=== PATIENT | female | born 1965 | race Caucasian/White ===

== ENCOUNTER 2020-06-13 14:16 | Emergency (ER) | payer OTHER, SELFPAY ==
[2020-06-13 14:31] VITALS: BP 104/47; PULSE 93; RESP 20; TEMP 36.6; O2SAT 99
--- NOTE | 2020-06-13 14:32 | ED.URI ---
HPI - URI/Sore Throat General Chief Complaint: Upper Respiratory Infection Stated Complaint: Possible sinus infection Time Seen by Provider: 06/13/20 14:32 Source: patient and RN notes reviewed Mode of arrival: ambulatory Limitations: no limitations History of Present Illness HPI Narrative: 55-year-old female presents with concern for sinus congestion, sinus pain and pressure. Reports 2-day history of symptoms. Denies taking any dsal-lje-zidtkhf medications for her symptoms. She denies fever, malaise, body aches, chills, sweats. Reports cough, denies shortness of breath. Reports she recently stayed in the hospital as a guest with her son for 2 nights. MD elicited complaint: nasal congestion Related Data Allergies Allergy/AdvReac Type Severity Reaction Status Date / Time levofloxacin [From Levaquin] Allergy Unknown Verified 06/13/20 14:33 nitrofurantoin Allergy Unknown Verified 06/13/20 14:33 [From Macrobid] Sulfa (Sulfonamide Allergy Rash Verified 06/13/20 14:33 Antibiotics) trimethoprim Allergy Unknown Verified 06/13/20 14:33 Review of Systems Review of Systems: Narrative: CONSTITUTIONAL: Denies malaise, chills, sweats, or fever. EYES: Denies visual changes, redness, or discharge. ENT: Reports rhinorrhea, congestion, sinus pain. Denies otalgia and sore throat. CARDIOVASCULAR: Denies chest pain, palpitations, or edema. RESPIRATORY: Reports cough. Denies dyspnea. GASTROINTESTINAL: Denies abdominal pain, nausea, vomiting, diarrhea SKIN: Denies rash or itching. MUSCULOSKELETAL: Denies myalgia. NEUROLOGIC: Denies headache. All systems reviewed & are unremarkable except as noted in HPI and below PMFSH Comments At time of signature, agree with nursing past medical, surgical, social and family history. There is no relevant family history pertinent to the presenting complaint Exam Narrative: Exam Narrative: GENERAL: Well-appearing, well-nourished, and in no acute distress. HEAD: Normocephalic EYES: PERRLA, conjunctivae clear ENT: Nares clear, turbinates edematous and erythematous, clear discharge. Mucous membranes moist. TM pearly rivero with dull light reflex bilaterally; no tragal tenderness. Oropharynx mildly erythematous without lesions. Tonsils not enlarged and without exudate, no drooling, no hoarseness, no trismus, uvula midline. NECK: Supple. No lymphadenopathy CHEST: Clear to auscultation, breath sounds equal. No wheezing, rhonchi, rales, or stridor. No respiratory distress, speaks in full sentences. HEART: Regular rate and rhythm. No murmur heard. SKIN: Warm, dry, no rash. NEURO: Alert and oriented x3. PSYCH: Normal mood and affect Course Course Emergency Course: Patient is aware of diagnosis, understands and agrees to treatment plan. Anticipatory guidance given. Patient agrees to follow-up as directed and is aware of reasons to seek care at the emergency department. Portions of this record may have been created with voice recognition software Vital Signs Vital signs: Vital Signs Temperature 98 F 06/13/20 14:31 Pulse Rate 93 06/13/20 14:31 Respiratory Rate 20 06/13/20 14:31 Blood Pressure 104/47 L 06/13/20 14:31 Pulse Oximetry 99 06/13/20 14:31 Temperature 98 F 06/13/20 14:31 Pulse Rate 93 06/13/20 14:31 Respiratory Rate 20 06/13/20 14:31 Blood Pressure 104/47 L 06/13/20 14:31 Pulse Oximetry 99 06/13/20 14:31 Reviewed. MDM - URI/Sore Throat MDM Narrative Medical decision making narrative: Differential diagnosis considered: Calero virus, strep pharyngitis, allergic rhinitis, upper respiratory tract infection, sinusitis, rhinosinusitis, nasopharyngitis. viral pharyngitis, otitis media, otitis externa, pneumonia, bronchitis, viral cough syndrome, viral syndrome, and influenza. Exam findings show no acute concerns or changes; patient is non-toxic appearing and is in no distress. Patient is appropriate for outpatient treatment and follow-up. Critical Care Time Critical
== END 2020-06-13 14:50 | disposition home or self-care (01) ==
PROVIDERS: Emergency Provider Nurse Practitioner
DX: J06.9 Acute upper respiratory infection, unspecified (principal); Z20.828 Contact with and (suspected) exposure to other viral communicable diseases
CPT/HCPCS: 99213; G0463

== ENCOUNTER 2020-06-14 10:20 | Outpatient (NON) | payer OTHER, SELFPAY ==
[2020-06-14 22:56] LABS: SARS-CoV-2 RNA PCR Negative
== END 2020-06-14 10:21 ==
PROVIDERS: Visit Provider Nurse Practitioner
DX: Z20.828 Contact with and (suspected) exposure to other viral communicable diseases (principal); J06.9 Acute upper respiratory infection, unspecified
CPT/HCPCS: 87635; C9803; U0003

== ENCOUNTER 2022-07-10 10:22 | Observation (INO) | payer OTHER, SELFPAY ==
[2022-07-10] VITALS (11 sets, daily range): BP systolic 95–116; BP diastolic 52–69; PULSE 54–80; RESP 16–18; TEMP 36.2–36.8; O2SAT 98–100; BMI 25.8
--- NOTE | ~2022-07-10 | CT_ITS ---
EXAMINATION: CT abdomen pelvis w con DATE: 07/10/2022 12:17 INDICATION: Left lower quadrant abdominal pain TECHNIQUE: Computed tomography (CT) of the abdomen and pelvis was performed with 100 mL Omnipaque-350 intravenous contrast. Automated exposure control and iterative reconstruction technique were employe d. The dose-length product was 444.02 mGy-cm. COMPARISON: None FINDINGS: Linear discoid atelectasis/scarring at the medial aspect of the right lower lobe. Heart size is radha l. No pericardial or pleural effusion. Focal hepatic steatosis along the ligamentum teres. Gallbladde r is decompressed. Spleen, pancreas, bilateral adrenal glands and kidneys are normal. There is diffus e edematous-appearing wall thickening of the colon with minimal pericolonic stranding consistent with diffuse pancolitis. Small bowel is normal. No pneumatosis, portal venous gas, abscess or free intrap eritoneal gas or fluid. The appendix is not visualized. No pericecal inflammatory change to suggest a cute appendicitis. Bladder and anteverted uterus are normal. Dilated parametrial and left gonadal vei ns which can be seen with pelvic vascular congestion syndrome. No pathologically enlarged abdominal o r pelvic lymphadenopathy. Very small fat-containing umbilical hernia. 22 degrees thoracolumbar dextro scoliosis. Moderate lumbar and lower thoracic spondylosis. IMPRESSION: 1. Diffuse edematous wall thickening of the colon with mild pericolonic stranding consistent with a d iffuse pancolitis which could be infectious, inflammatory or ischemic in etiology. Reviewed, dictated and finalized at location B. [employer] 2ND SHIFT IMPRESSION: 1. Diffuse edematous wall thickening of the colon with mild pericolonic strandi ng consistent with a diffuse pancolitis which could be infectious, inflammatory or ischemic in etiology.
[2022-07-10 10:48] LABS: Basophils Percent Auto 0.3 % (0.2-1.2); Eosinophils Percent Auto 0.3 % (0-4.4); Hematocrit 41.4 % (37.0-47.0); Hemoglobin 14.2 g/dL (12.0-15.0); Immature Granulocyte Absolute 0.01 K/mm3 (0.00-0.031); Immature Granulocyte Percent A 0.1 % (0-0.5); Lymphocytes Absolute Auto 1.24 K/mm3 (0.9-3.2); Lymphocytes Percent Auto 17.2 % (18.3-44.2); Mean Corpuscular HGB Conc 34.3 g/dl (32-36); Mean Corpuscular Hemoglobin 29.5 pg (26-34); Mean Corpuscular Volume 85.9 fl (80-100); Mean Platelet Volume 8.6 fl (7.4-10.4); Monocytes Absolute Auto 0.7 K/mm3 (0.1-0.6); Monocytes Percent Auto 9.4 % (2.6-8.5); Neutrophils Absolute Auto 5.2 K/mm3 (1.3-6.7); Neutrophils Percent Auto 72.7 % (45.5-73.1); Platelet Count Result 276 k/mm3 (150-375); Red Blood Count 4.82 M/mm3 (4.2-5.4); Red Cell Distribution Width 13.5 % (11.5-14.5); White Blood Count 7.2 K/mm3 (4.5-10.0)
[2022-07-10 10:55] LABS: Appearance Urine Slightly Cloudy (Clear); Bilirubin Urine 1+ (Negative); Blood Urine 2+ (Negative); Color Urine Yellow (Yellow); Glucose Urine UA Negative (Negative); Ketones Urine 1+ mg/dL (Negative); Leukocyte Esterase Ur Negative LEU/UL (Negative); Nitrate Urine Negative (Negative); Protein Urine 1+ mg/dL (Negative); Specific Grav Ur >= 1.030 (1.001-1.035); Urobilinogen Urine 0.2 mg/dL (<2.0); pH Urine 5.5 (5.0-9.0)
[2022-07-10 10:57] LABS: Alanine Aminotransferase 32 U/L (6-35); Albumin Level 4.3 g/dL (3.5-5.1); Alkaline Phosphatase 78 U/L (38-126); Anion Gap 12 mmol/L (8-16); Aspartate Amino Transferase 29 U/L (14-36); Bilirubin,Total 0.8 mg/dL (0.2-1.3); Blood Urea Nitrogen 16 mg/dL (7-17); Carbon Dioxide 24 mmol/L (22-30); Chloride 103 mmol/L (98-107); Estimated CRCL calculation 73 ml/min; Estimated Glomerular Filt Rate > 60; Glucose 101 mg/dL (65-110); Lipase 93 U/L (23-300); Potassium 3.4 mmol/L (3.4-5.0); Sodium 139 mmol/L (137-145)
[2022-07-10 11:09] LABS: Mucus Urine Few /lpf; Squamous Epithelial Cell Urine Many /hpf (Few); WBC Urine 0-3 /hpf
[2022-07-10 11:22] LABS: Add Urine Microscopic? YES
--- NOTE | 2022-07-10 11:40 | ED.GENADULT ---
HPI - General Adult General Chief complaint: Nausea/Vomiting/Diarrhea Stated complaint: N/V, i feel like i am dehydrating Time Seen by Provider: 07/10/22 11:34 Source: RN notes reviewed History of Present Illness HPI narrative: Patient presents emergency department from home for abdominal pain. Patient states symptoms began 2 days ago. States that she developed nausea vomiting and diarrhea 2 days ago she states that the vomiting resolved yesterday but continues to have nausea as well as diarrhea states that is associated with pain in the left lower abdomen is described as cramping in nature. States she did feel like she was running low-grade fevers but did not have a measured fever. States she last took Tylenol for the symptoms last night. She states that both her and her were ill with GI symptoms after eating out on Sunday night her is improved she denies any chest pain or shortness of breath Related Data Allergies Allergy/AdvReac Type Severity Reaction Status Date / Time levofloxacin [From Levaquin] Allergy Unknown Verified 07/10/22 13:25 nitrofurantoin Allergy Unknown Verified 07/10/22 13:25 [From Macrobid] Sulfa (Sulfonamide Allergy Rash Verified 07/10/22 13:25 Antibiotics) trimethoprim Allergy Unknown Verified 07/10/22 13:25 Review of Systems Review of Systems: Gen.: Subjective fevers ENT: Denies congestion Respiratory: Denies shortness of breath or cough CV: Denies chest pain or palpitations GI: See HPI Musculoskeletal: Denies back pain or muscle pain Neuro: Denies numbness, tingling, weakness or focal weakness Skin: Denies rash Except as documented, all other systems reviewed and negative FOR[facility] Past Medical History Medical History (Updated 07/10/22 @ 13:44 by Moises Kendrick DO) Patient denies significant medical history Social History Social History (Updated 07/10/22 @ 11:41 by Moises Kendrick DO) Smoking status: Never smoker Exam Narrative: APPEARANCE: No acute distress, nontoxic, resting in bed HEENT: Normocephalic, atraumatic, OMM RESPIRATORY: No respiratory distress, clear to auscultation bilaterally with no rhonchi wheezing or rales CARDIOVASCULAR: RRR s murmur ABDOMINAL: Soft nondistended tender palpation left lower quadrant no tenderness left upper quadrant, right upper quadrant and right lower quadrant no rebound or guarding MUSCULOSKELETAl: Moves all extremities. No clubbing, cyanosis or edema. NEURO: Awake and alert. Following commands, speech normal, no focal deficits SKIN:: Warm, dry. Normal Color PSYCHIATRIC: Normal affect/mood Course Course Emergency Course: Discussed Dr Reynoso presentation work-up agrees with plan for consult agrees with plan for Zosyn discussed with ALYCE Ludwig for Dr. Martinez agrees with admission Discussed with patient and family results of workup and diagnosis. Discussed need for admission. Patient and family understand and agree to current treatment plan Vital Signs Vital signs: Vital Signs Temperature 98.2 F 07/10/22 10:25 Pulse Rate 75 07/10/22 10:25 Respiratory Rate 18 07/10/22 10:25 Blood Pressure 116/60 07/10/22 10:25 Pulse Oximetry 99 07/10/22 10:25 Oxygen Delivery Room Air 07/10/22 10:25 Temperature 98.2 F 07/10/22 10:25 Pulse Rate 80 07/10/22 13:29 Respiratory Rate 16 07/10/22 13:19 Blood Pressure 103/63 07/10/22 13:29 Pulse Oximetry 100 07/10/22 13:19 Oxygen Delivery Room Air 07/10/22 11:58 Medical Decision Making Vital Signs Vital Signs: Vital Signs Temperature 98.2 F 07/10/22 10:25 Pulse Rate 75 07/10/22 10:25 Respiratory Rate 18 07/10/22 10:25 Blood Pressure 116/60 07/10/22 10:25 Pulse Oximetry 99 07/10/22 10:25 Oxygen Delivery Room Air 07/10/22 10:25 Temperature 98.2 F 07/10/22 10:25 Pulse Rate 80 07/10/22 13:29 Respiratory Rate 16 07/10/22 13:19 Blood Pressure 103/63 07/10/22 13:29 Pulse Oximetry 100 07/10/22
[2022-07-10] MEDS: SODIUM CHLORIDE 0.9% IV 1,000 ML 999 ML IV CONT (12:00)
[2022-07-10] MEDS: ONDANSETRON INJ 4 MG/2 ML VIAL IV PUSH (12:01)
[2022-07-10 13:40] LABS: Lactic Acid Reflex 0.6 mmol/L (0.7-2.0)
--- NOTE | 2022-07-10 13:45 | PM.IMHP ---
H&P: HPI History of Present Illness Date/Time: 07/10/22 13:45 Chief Complaint: Diarrhea. Narrative: This is a very pleasant 57-year-old female with GERD and history of Helicobacter pylori infection who presented to the emergency department from home for evaluation of diarrhea. She and her ate at a local seafood restaurant on Sunday and the following day she started to feel unwell with subjective fever, chills, diffuse abdominal cramping, nausea, vomiting, and diarrhea. She continues to have 5 watery, green stools a day and nausea but the vomiting has ceased. She denies hematemesis, melena, hematochezia, and documented fever. No recent antibiotic use (she does have a prescription for cefdinir due to frequent urinary tract infections that she will take as needed) or travel. No history of inflammatory bowel disease. Her had similar symptoms but to a much lesser extent. Vital signs were stable on arrival though blood pressures have been at the low end of normal. Labs were pretty unremarkable however her urine was concentrated and she certainly looks dehydrated. CT of the abdomen and pelvis done on arrival to the emergency department showed diffuse nino colitis and she is being admitted in this setting for IV fluid rehydration and IV antibiotics. Review of Systems Review of Systems: Twelve systems were reviewed and are negative except for as per HPI. [facility] Past Medical History Medical History (Updated 07/10/22 @ 19:56 by Vani Trotter PA-C) Chronic urinary tract infection COVID-19 (03/2022) Gastroesophageal reflux disease History of Helicobacter pylori infection Surgical History Surgical History (Updated 07/10/22 @ 19:53 by Vani Trotter PA-C) History of 3 sections History of appendectomy History of foot surgery Family History Family History (Updated 07/10/22 @ 19:54 by Vani Trotter PA-C) Other Family history non-contributory Social History Social History (Updated 07/10/22 @ 19:54 by Vani Trotter PA-C) Social History: Code status: Full code. Smoking status: Never smoker Alcohol intake: current Alcohol use details: Social alcohol use in moderation. Substance use: never Lack of Transportation: No Lack of Food: Never True Current Housing: I Have Housing Concerned About Future Housing: No Difficulty Paying Gas/Electric Bills: No Difficulty Paying for Meds: No Currently Unemployed: No Education: Don't Know Difficulty w/ Childcare or Family Care: Decline to Answer Additional living arrangements comments: The patient lives with her and children in [place]. Spiritual care concerns: No Meds Home Medications and Allergies Home Medications Medication Instructions Recorded Confirmed Type alendronate 70 mg tablet 70 mg PO WEEKLY 07/10/22 07/10/22 History cephalexin 500 mg capsule 500 mg PO DAILY 07/10/22 07/10/22 History estradiol 10 mcg vaginal tablet 10 mcg vaginal DAILY 07/10/22 07/10/22 History pantoprazole 40 mg tablet,delayed 40 mg PO DAILY 07/10/22 07/10/22 History release Allergies Allergy/AdvReac Type Severity Reaction Status Date / Time levofloxacin [From Levaquin] Allergy Unknown Verified 07/10/22 13:25 nitrofurantoin Allergy Unknown Verified 07/10/22 13:25 [From Macrobid] Sulfa (Sulfonamide Allergy Rash Verified 07/10/22 13:25 Antibiotics) trimethoprim Allergy Unknown Verified 07/10/22 13:25 Vital Signs Vital Signs - 24 hr 07/10/22 10:25 07/10/22 11:58 07/10/22 13:19 Temperature 98.2 F Pulse Rate 75 70 64 Respiratory Rate 18 16 16 Blood Pressure 116/60 108/63 Pulse Oximetry 99 98 100 Oxygen Delivery Room Air Room Air 07/10/22 13:26 07/10/22 13:27 07/10/22 13:29 Temperature Pulse Rate 65 74 80 Respiratory Rate Blood Pressure 101/57 L 102/69 103/63 Pulse Oximetry Oxygen Delivery 07/10/22 14:00 Temperature Pulse Rate 60 Respiratory Rate 18 Blood P
[2022-07-10] MEDS: SODIUM CHLORIDE 0.9% IV 1,000 ML 125 ML IV CONT ×2 (14:01→21:21)
[2022-07-10 14:48] LABS: Influenza A QL RT-PCR Negative (Negative); Influenza B QL RT-PCR Negative (Negative); RSV RNA, RT-PCR Negative (Negative); SARS-CoV-2 RNA PCR Negative
--- NOTE | 2022-07-10 15:23 | WPDGICN ---
Assessment and Plan Assessment and plan (1) Infectious colitis: Code(s): A09 - Infectious gastroenteritis and colitis, unspecified Status: Acute Assessment and Plan: patient appears to have infectious colitis given the history of nausea vomiting diarrhea that began after eating foods along with the similar illness of her . Etiology of the bacterial agent uncertain. Stool cultures will be obtained. Broad-spectrum antibiotics have already been started in the emergency room. IV rehydration will be helpful. Hopefully this is self-limited. (2) GERD (gastroesophageal reflux disease): Code(s): K21.9 - Gastro-esophageal reflux disease without esophagitis Status: Acute Assessment and Plan: Patient gives a longstanding history of GE reflux disease. Patient followed by gut dropper at [facility]. Will maintain patient on pantoprazole well ill. Anticipate long-term follow-up with her established gut dropper in [place]. GI Consult Note Consult date/time: 07/10/22 15:23 Reason for consult: Pancolitis by CT scan. HPI: Suyapa Macias is a 57 year old female I am asked to see at the request of the emergency room. Patient reports that she was in usual state of health. On Sunday 3 days prior to this she when out to eat. She had raw oysters and some specialty foods. On Sunday both she and her became sick with nausea vomiting and diarrhea. Her has improved. Patient reports that she is unable to keep food down and continues to have diarrhea. Patient presented to the emergency room today was found to have a normal CBC. CT scan was performed and found to have pancolitis. Patient has empirically been started on Zosyn. She reports an allergy to the Levaquin. Family history is noncontributory. Patient's past medical history is significant for GE reflux disease. Patient reports that she has maintained chronically on pantoprazole. Patient reports many years ago as a teenager she was treated for shigella.Patient is to be admitted for IV rehydration and antibiotic therapy per the emergency room. Review of Systems Review of Systems: Review of systems noncontributory. [facility] Past Medical History Medical History (Updated 07/10/22 @ 15:27 by Alfonso Reynoso MD) Patient denies significant medical history Social History Social History (Updated 07/10/22 @ 11:41 by Moises Kendrick DO) Smoking status: Never smoker Meds Home Medications and Allergies Home Medications Medication Instructions Recorded Confirmed Type cetirizine 5 mg-pseudoephedrine ER 1 tablet PO Q12H PRN nasal 06/13/20 Rx 120 mg tablet,extended congestion #12 tabs release,12hr (Zyrtec-D) fluticasone propionate 50 2 spray intranasal DAILY 14 days 06/13/20 Rx mcg/actuation nasal #15.8 mL spray,suspension (Flonase Allergy Relief) Allergies Allergy/AdvReac Type Severity Reaction Status Date / Time levofloxacin [From Levaquin] Allergy Unknown Verified 07/10/22 13:25 nitrofurantoin Allergy Unknown Verified 07/10/22 13:25 [From Macrobid] Sulfa (Sulfonamide Allergy Rash Verified 07/10/22 13:25 Antibiotics) trimethoprim Allergy Unknown Verified 07/10/22 13:25 Vital Signs Vital Signs - 24 hr 07/10/22 10:25 07/10/22 11:58 07/10/22 13:19 Temperature 98.2 F Pulse Rate 75 70 64 Respiratory Rate 18 16 16 Blood Pressure 116/60 108/63 Pulse Oximetry 99 98 100 Oxygen Delivery Room Air Room Air 07/10/22 13:26 07/10/22 13:27 07/10/22 13:29 Temperature Pulse Rate 65 74 80 Respiratory Rate Blood Pressure 101/57 L 102/69 103/63 Pulse Oximetry Oxygen Delivery 07/10/22 14:00 Temperature Pulse Rate 60 Respiratory Rate 18 Blood Pressure 103/63 Pulse Oximetry 98 Oxygen Delivery Exam Narrative: Physical exam reveals patient to be alert. Vital signs stable. HEENT exam is unremarkable. Patient is an
--- NOTE | 2022-07-10 17:25 | ADMGEN ---
This patient, Suyapa Macias, was admitted to Medical Room 342-01. Patient/family oriented to hospital policies and general routines including ID bracelet, bed and alarms, visiting hours, pain management, procedures, bathroom and other care routines, personal items, smoking policy, room service/diet, and visiting hours. Information on how to activate the Rapid Response Team has been discussed. Patient/Family are encouraged to report perceived risks to care and to ask questions if they do not understand what they are told or what they should do.
[2022-07-10] MEDS: ACETAMINOPHEN 325 MG TABLET 650 MG PO (18:36)
[2022-07-10 19:56] LABS: Toxigenic C. Diff NEGATIVE (NEGATIVE)
[2022-07-10 20:17] LABS: IFOB Positive Control Positive; Immunochemical Fecal Occult Bl Negative (N)
[2022-07-11] MEDS: ACETAMINOPHEN 325 MG TABLET 650 MG PO ×2 (01:51→09:05)
[2022-07-11 02:39] LABS: Glucose Point of Care 84 mg/dl (65-105)
[2022-07-11 05:57] LABS: Alanine Aminotransferase 29 U/L (6-35); Albumin Level 3.7 g/dL (3.5-5.1); Alkaline Phosphatase 59 U/L (38-126); Anion Gap 9 mmol/L (8-16); Aspartate Amino Transferase 28 U/L (14-36); Bilirubin,Total 0.9 mg/dL (0.2-1.3); Blood Urea Nitrogen 10 mg/dL (7-17); Calcium 7.9 mg/dL (8.4-10.2); Carbon Dioxide 24 mmol/L (22-30); Chloride 109 mmol/L (98-107); Estimated CRCL calculation 84 ml/min; Estimated Glomerular Filt Rate > 60; Glucose 83 mg/dL (65-110); Magnesium 2.2 mg/dL (1.6-2.3); Potassium 3.5 mmol/L (3.4-5.0); Sodium 142 mmol/L (137-145)
[2022-07-11 06:00] VITALS: BP 102/50; PULSE 72; RESP 16; TEMP 37; O2SAT 97
[2022-07-11 06:24] LABS: Basophils Percent Auto 0.7 % (0.2-1.2); Eosinophils Absolute Auto 0.1 K/mm3 (0-0.3); Eosinophils Percent Auto 1.4 % (0-4.4); Hematocrit 38.7 % (37.0-47.0); Hemoglobin 12.5 g/dL (12.0-15.0); Immature Granulocyte Absolute 0.01 K/mm3 (0.00-0.031); Immature Granulocyte Percent A 0.2 % (0-0.5); Lymphocytes Absolute Auto 1.43 K/mm3 (0.9-3.2); Lymphocytes Percent Auto 33.7 % (18.3-44.2); Mean Corpuscular HGB Conc 32.3 g/dl (32-36); Mean Corpuscular Hemoglobin 28.9 pg (26-34); Mean Corpuscular Volume 89.6 fl (80-100); Mean Platelet Volume 9.1 fl (7.4-10.4); Monocytes Absolute Auto 0.4 K/mm3 (0.1-0.6); Monocytes Percent Auto 9.9 % (2.6-8.5); Neutrophils Absolute Auto 2.3 K/mm3 (1.3-6.7); Neutrophils Percent Auto 54.1 % (45.5-73.1); Platelet Count Result 240 k/mm3 (150-375); Red Blood Count 4.32 M/mm3 (4.2-5.4); Red Cell Distribution Width 13.9 % (11.5-14.5); White Blood Count 4.2 K/mm3 (4.5-10.0)
[2022-07-11 08:00] VITALS: BP 99/55
[2022-07-11] MEDS: SODIUM CHLORIDE 0.9% IV 1,000 ML 125 ML IV CONT (08:52)
[2022-07-11] MEDS: PANTOPRAZOLE SODIUM IV 40 MG VIAL IV PUSH (08:55)
[2022-07-11] MEDS: CEPHALEXIN 500 MG CAPSULE PO (08:55)
--- NOTE | 2022-07-11 10:53 | WPDGIPROGNO ---
Progress Note: A&P Assessment and Plan (1) Infectious colitis: Code(s): A09 - Infectious gastroenteritis and colitis, unspecified Status: Acute Assessment and Plan: Patient with apparent infectious colitis after eating out dinner Sunday. Her was also will but not ill enough to be admitted. Patient appeared to the ER dehydrated yesterday. CT scan appeared to confirmed colitis. Stool cultures currently pending. Now on intravenous broad-spectrum antibiotics. Would recommend advancing diet. Change to oral antibiotics and discharge if diarrhea tolerable and diet tolerated. Empiric antibiotics for 7-10 days encouraged. (2) Dehydration: Code(s): E86.0 - Dehydration Status: Acute Assessment and Plan: Patient dehydrated on presentation. Appears much improved after rehydration today. Suggest advancing to oral diet as tolerated. Discharge if diet tolerated diarrhea has lessened. Subjective Date/time seen: 07/11/22 10:53 Patient alert this morning. She reports minimal stooling throughout the night. No longer vomiting. Tolerated liquid diet without difficulty. Review of Systems Review of Systems: Review of systems noncontributory. Exam Narrative: Physical exam reveals patient be alert. Afebrile. Vital signs stable. She is anicteric. Lungs are clear. Heart without murmur. A abdomen bowel sounds present soft no localized tenderness. Objective Data Vital Signs Vital Signs: Vital Signs - 24 hr 07/10/22 11:58 07/10/22 13:19 07/10/22 13:26 Temperature Pulse Rate 70 64 65 Respiratory Rate 16 16 Blood Pressure 108/63 101/57 L Pulse Oximetry 98 100 Oxygen Delivery Room Air 07/10/22 13:27 07/10/22 13:29 07/10/22 14:00 Temperature Pulse Rate 74 80 60 Respiratory Rate 18 Blood Pressure 102/69 103/63 103/63 Pulse Oximetry 98 Oxygen Delivery 07/10/22 16:44 07/10/22 18:34 07/10/22 20:00 Temperature 97.2 F L Pulse Rate 57 L 54 L Respiratory Rate 16 18 Blood Pressure 100/60 95/52 L 100/60 Pulse Oximetry 98 100 Oxygen Delivery 07/10/22 21:54 07/11/22 06:00 Temperature 97.9 F 98.6 F Pulse Rate 59 L 72 Respiratory Rate 16 16 Blood Pressure 100/60 102/50 L Pulse Oximetry 100 97 Oxygen Delivery Intake/Output Intake/Output: Intake & Output 07/08/22 07/09/22 07/10/22 07/11/22 23:59 23:59 23:59 23:59 Intake Total 2200 1050 Output Total 500 Balance 2200 550 Meds/Results Medications: Active Medications Generic Name Dose Route Start Last Admin Trade Name Freq PRN Reason Stop Dose Admin Acetaminophen 650 mg 07/10/22 18:06 07/11/22 09:05 Acetaminophen 325 Mg Tablet PO 650 mg Q6H PRN Administration Mild Pain (1-3) or Fever Cephalexin HCl 500 mg 07/11/22 09:00 07/11/22 08:55 Cephalexin 500 Mg Capsule PO 500 mg DAILY KINJAL Administration Piperacillin/Tazobactam/Dextrose 3.375 gm in 50 mls @ 100 mls/hr 07/10/22 20:00 07/11/22 08:53 Zosyn 3.375 Gm/D5w 50ml Pm IVPB 100 mls/hr Q6H KINJAL Administration Sodium Chloride 1,000 mls @ 100 mls/hr 07/10/22 13:40 07/11/22 08:52 Normal Saline Iv IV CONT 125 mls/hr .Q10H KINJAL Administration Nonformulary Drug ( 10 mcg 07/11/22 09:00 Estradiol 10 Mcg VAGINAL 08/10/22 08:59 Vaginal Insert) DAILY KINJAL Pantoprazole Sodium 40 mg 07/11/22 09:00 07/11/22 08:55 Pantoprazole Sodium Iv 40 Mg Vial IV PUSH 40 mg QAM KINJAL Administration Radiology Results: ITS Impressions Abdomen/Pelvis CT 07/10/22 12:27 IMPRESSION: 1. Diffuse edematous wall thickening of the colon with mild pericolonic stranding consistent with a diffuse pancolitis which could be infectious, inflammatory or ischemic in etiology. Labs Labs: Laboratory Results - last 24 hr 07/10/22 07/10/22 07/10/22 10:40 10:40 10:40 WBC 7.2 RBC 4.82 Hgb 14.2 Hct 41.4 MCV 85.9 MCH 29.5 MCHC 34.3 RDW 13.5 Plt Count 27
[2022-07-11 11:04] VITALS: BP 102/55
--- NOTE | 2022-07-11 13:20 | PM.DS ---
DS: Admitting Diagnosis Discharge Date 07/11/2022 Admitting Diagnosis dehydration and diarrhea DS: Discharge Diagnosis Discharge Diagnosis (1) Pancolitis: Code(s): K51.00 - Ulcerative (chronic) pancolitis without complications Status: Acute (2) Dehydration: Code(s): E86.0 - Dehydration Status: Acute (3) Gastroesophageal reflux disease: Code(s): K21.9 - Gastro-esophageal reflux disease without esophagitis Status: Acute DS: Summary Hospital Course Reason for hospitalization: diarrhea and dehydration Hospital Course: The patient presented to the emergency department from home for evaluation of subjective fever, nausea, vomiting, diarrhea, and abdominal cramping for the last several days after eating at a local seafood restaurant. Her has had similar symptoms. CT revealed pancolitis the patient was started on IV Zosyn and fluids. On 07/11/2022 patient stated that she is feeling better and has been tolerating solid foods. C diff negative stool cultures are pending. Patient states that she is ready to go home and would like to be notified of stool culture results. Patient's labs are stable and she is ready for discharge. Discharging patient on Flagyl and Cipro and she will be notified if antibiotics need to be changed due to stool culture results. Status at Discharge Functional status at discharge: independent ambulation Overall status at discharge: patient is progressing back to baseline Time Spent with Patient Time attestation: Total time spent providing and/or coordinating discharge services: DS: Data Data Completed and Pending Labs on day of discharge: Labs from last 24 hours 07/11/22 07/11/22 07/11/22 05:17 05:17 02:35 WBC 4.2 L RBC 4.32 Hgb 12.5 Hct 38.7 MCV 89.6 MCH 28.9 MCHC 32.3 RDW 13.9 Plt Count 240 MPV 9.1 Immature Gran % (Auto) 0.2 Neut % (Auto) 54.1 Lymph % (Auto) 33.7 [place] % (Auto) 9.9 H Eos % (Auto) 1.4 Baso % (Auto) 0.7 Lymph # (Auto) 1.43 [place] # (Auto) 0.4 Eos # (Auto) 0.1 Baso # (Auto) 0.0 Abs Immat Gran (auto) 0.01 Absolute Neuts (auto) 2.3 Absolute Nucleated RBC 0.0 Nucleated RBC % 0.0 Sodium 142 Potassium 3.5 Chloride 109 H Carbon Dioxide 24 Anion Gap 9 BUN 10 D Creatinine 0.60 L Estim Creat Clear Calc 84 Estimated GFR > 60 Glucose 83 POC Capillary Glucose 84 Lactic Acid Calcium 7.9 L Magnesium 2.2 Total Bilirubin 0.9 AST 28 ALT 29 Alkaline Phosphatase 59 Total Protein 6.0 L Albumin 3.7 Stl Occult Blood (IFOB) C. difficile (PCR) Influenza A (RT-PCR) Influenza B (RT-PCR) RSV (RT-PCR) SARS-CoV-2 RNA (RT-PCR) 07/10/22 07/10/22 07/10/22 18:13 18:13 14:00 WBC RBC Hgb Hct MCV MCH MCHC RDW Plt Count MPV Immature Gran % (Auto) Neut % (Auto) Lymph % (Auto) [place] % (Auto) Eos % (Auto) Baso % (Auto) Lymph # (Auto) [place] # (Auto) Eos # (Auto) Baso # (Auto) Abs Immat Gran (auto) Absolute Neuts (auto) Absolute Nucleated RBC Nucleated RBC % Sodium Potassium Chloride Carbon Dioxide Anion Gap BUN Creatinine Estim Creat Clear Calc Estimated GFR Glucose POC Capillary Glucose Lactic Acid Calcium Magnesium Total Bilirubin AST ALT Alkaline Phosphatase Total Protein Albumin Stl Occult Blood (IFOB) Negative C. difficile (PCR) Negative Influenza A (RT-PCR) Negative Influenza B (RT-PCR) Negative RSV (RT-PCR) Negative SARS-CoV-2 RNA (RT-PCR) Negative 07/10/22 12:47 WBC RBC Hgb Hct MCV MCH MCHC RDW Plt Count MPV Immature Gran % (Auto) Neut % (Auto) Lymph % (Auto) [place] % (Auto) Eos % (Auto) Baso % (Auto) Lymph # (Auto) [place] # (Auto) Eos # (Auto) Baso # (Auto) Abs Immat Gran (aut
--- NOTE | 2022-07-18 10:21 | PC.NURSE ---
All Stool cx results are negative. ALYCE Dupree aware.
== END 2022-07-11 15:29 | disposition home or self-care (01) ==
LOC: ANHED 13:44 → ANH3MED 17:04
PROVIDERS: Internal Medicine Gastroenterology; Admitting Provider Student in an Organized Health Care Education/Training Program; Emergency Provider Emergency Medicine; Visit Provider Internal Medicine
DX: K51.00 Ulcerative (chronic) pancolitis without complications (principal); E86.0 Dehydration; K21.9 Gastro-esophageal reflux disease without esophagitis; Z87.440 Personal history of urinary (tract) infections; Z20.822 Contact with and (suspected) exposure to COVID-19; Z86.16 Personal history of COVID-19
CPT/HCPCS: 36415; 74177; 80053; 81001; 82274; 82948; 83605; 83690; 83735; 85025; 87045; 87269; 87272; 87427; 87493; 87637; 89055; 96361; 96365; 96367; 96375; 99285; A9270; C9113; G0378; J0131; J2405; J2543; J7030; Q9967

== ENCOUNTER 2022-10-07 12:20 | Emergency (ER) | payer OTHER, SELFPAY ==
--- NOTE | 2022-10-07 12:24 | ED.URI ---
HPI - URI/Sore Throat General Chief Complaint: Upper Respiratory Infection Stated Complaint: SINUS CONGESITON/COUGH Time Seen by Provider: 10/07/22 12:24 Source: patient and RN notes reviewed History of Present Illness HPI Narrative: Patient is a 57-year-old female who presents to urgent care with complaints of 9 day history of cough and sinus congestion/pressure. Patient states she also feels like her ears cannot pop. Patient has been taking Tylenol but has not been treating her symptoms with anything [id number]. Patient states that she came in contact with her son who recently had a viral sinus infection as well but his symptoms have not worsened. Patient states that she is going to need antibiotics for this sinus infection. Denies of productive cough, denies a fever, nausea, vomiting, wheezing. Denies any ill contacts with the exception of her son. No other acute complaints. No acute distress noted. Patient aware of the plan of care. Some parts of this dictation were generated by voice recognition software and may contain typographical and/or grammatical inaccuracies. Related Data Home Medications Medication Instructions Recorded Confirmed alendronate 70 mg tablet 70 mg PO WEEKLY 07/10/22 10/07/22 estradiol 10 mcg vaginal tablet 10 mcg vaginal DAILY 07/10/22 10/07/22 pantoprazole 40 mg tablet,delayed 40 mg PO DAILY 07/10/22 10/07/22 release Allergies Allergy/AdvReac Type Severity Reaction Status Date / Time levofloxacin [From Levaquin] Allergy Unknown Verified 10/07/22 12:28 nitrofurantoin Allergy Unknown Verified 10/07/22 12:28 [From Macrobid] Sulfa (Sulfonamide Allergy Rash Verified 10/07/22 12:28 Antibiotics) trimethoprim Allergy Unknown Verified 10/07/22 12:28 Review of Systems Review of Systems: CONSTITUTIONAL: Denies fever, chills, or sweats. EYES: Denies visual changes, redness, or discharge. ENT: Reports rhinorrhea, congestion, postnasal drainage bilateral otalgia CARDIOVASCULAR: Denies chest pain, palpitations, or edema. RESPIRATORY: Reports of cough without wheezing or difficulty breathing GASTROINTESTINAL: Denies abdominal pain, nausea, vomiting, or diarrhea. GENITOURINARY: Denies dysuria or hematuria. SKIN: Denies rash or itching. MUSCULOSKELETAL: Denies back pain, joint pain, or myalgia. NEUROLOGIC: Denies headache, numbness, or weakness. All other systems reviewed are negative, except as documented in HPI. FOR[facility] Past Medical History Medical History (Updated 10/07/22 @ 12:40 by LACEY Morales) Chronic urinary tract infection COVID-19 (03/2022) Gastroesophageal reflux disease History of Helicobacter pylori infection Surgical History Surgical History (Updated 07/10/22 @ 19:53 by Vani Trotter PA-C) History of 3 sections History of appendectomy History of foot surgery Family History Family History (Updated 07/10/22 @ 19:54 by Vani Trotter PA-C) Other Family history non-contributory Social History Social History (Updated 07/10/22 @ 19:54 by Vani Trotter PA-C) Social History: Code status: Full code. Smoking status: Never smoker Alcohol intake: current Alcohol use details: Social alcohol use in moderation. Substance use: never Lack of Transportation: No Lack of Food: Never True Current Housing: I Have Housing Concerned About Future Housing: No Difficulty Paying Gas/Electric Bills: No Difficulty Paying for Meds: No Currently Unemployed: No Education: Don't Know Difficulty w/ Childcare or Family Care: Decline to Answer Additional living arrangements comments: The patient lives with her and children in [place]. Spiritual care concerns: No Comments At the time of my signature, I reviewed and agree with the nursing past medical, surgical, social, and family history. There is no relevant family history pertinent to the patient complaint. Exam Narrative: GENERAL: This is a w
[2022-10-07 12:31] VITALS: BP 119/62; PULSE 64; RESP 16; TEMP 36.4; O2SAT 98
== END 2022-10-07 12:43 | disposition home or self-care (01) ==
PROVIDERS: Emergency Provider Nurse Practitioner Family
DX: J32.9 Chronic sinusitis, unspecified (principal); K21.9 Gastro-esophageal reflux disease without esophagitis; Z86.16 Personal history of COVID-19
CPT/HCPCS: 99213; G0463

== ENCOUNTER 2023-01-22 13:14 | Emergency (ER) | payer OTHER, SELFPAY | END 2023-01-22 13:28 | disposition left against medical advice (07) | DX: T16.2XXA Foreign body in left ear, initial encounter (principal) | CPT/HCPCS: 99199 ==

== ENCOUNTER 2023-02-24 11:32 | Emergency (ER) | payer OTHER, SELFPAY ==
[2023-02-24 11:39] VITALS: BP 112/50; PULSE 68; RESP 16; TEMP 36.2; O2SAT 100
--- NOTE | 2023-02-24 13:10 | ED.BACK ---
HPI - Back Pain/Injury General Chief Complaint: Back Pain/Injury Stated Complaint: back pain Time Seen by Provider: 02/24/23 12:16 History of Present Illness HPI Narrative: Patient is a 57-year-old female with a history of osteoporosis, osteoarthritis, GERD presenting with back pain. Patient states that she was recently treated for right hip bursitis. States that she has been doing better in that regard. Unfortunately, she developed lower back pain yesterday which became very severe in the middle of the night. States that it is on the right side of her lower back and it shoots down her right leg. States that walking seems to help it. She denies numbness or weakness. No saddle anesthesia or bladder/bowel incontinence. No fevers. No recent trauma. States that she sees an orthopedic clinic for injections. She denies further complaints. Related Data Home Medications Medication Instructions Recorded Confirmed alendronate 70 mg tablet 70 mg PO WEEKLY 07/10/22 01/01/23 estradiol 10 mcg vaginal tablet 10 mcg vaginal DAILY 07/10/22 01/01/23 pantoprazole 40 mg tablet,delayed 40 mg PO DAILY 07/10/22 01/01/23 release azelaic acid 15 % topical gel 1 applic topical BID 01/01/23 01/01/23 cephalexin 500 mg capsule 500 mg PO Q12H 01/01/23 01/01/23 Allergies Allergy/AdvReac Type Severity Reaction Status Date / Time levofloxacin [From Levaquin] Allergy Unknown Verified 02/24/23 12:02 nitrofurantoin Allergy Unknown Verified 02/24/23 12:02 [From Macrobid] Sulfa (Sulfonamide Allergy Rash Verified 02/24/23 12:02 Antibiotics) trimethoprim Allergy Unknown Verified 02/24/23 12:02 Review of Systems Review of Systems: All systems reviewed & are unremarkable except as noted in HPI and below PMFSH Past Medical History Medical History Acne rosacea Chronic urinary tract infection COVID-19 (03/2022) Gastroesophageal reflux disease Hay fever History of Helicobacter pylori infection History of stress test Osteoporosis Scoliosis Sleep apnea Surgical History Surgical History History of 3 sections History of appendectomy History of foot surgery (~02/2010) History of oophorectomy (~10/17/75) Family History Family History Father Heart disease Sleep apnea Malignant neoplasm of prostate Skin cancer Mother Parkinsons disease Arthritis Other Diabetes mellitus Gout Other Family history non-contributory Social History Social History Social History: Code status: Full code. Smoking status: Never smoker Alcohol intake: current Alcohol use details: Social alcohol use in moderation. Substance use: never Lack of Transportation: No Lack of Food: Never True Current Housing: I Have Housing Concerned About Future Housing: No Difficulty Paying Gas/Electric Bills: No Difficulty Paying for Meds: No Currently Unemployed: No Education: Don't Know Difficulty w/ Childcare or Family Care: Decline to Answer Additional living arrangements comments: The patient lives with her and children in [place]. Spiritual care concerns: No Exam Narrative: GENERAL: Well-appearing, well-nourished, and in no acute distress. Pleasant and cooperative HEAD: Normocephalic, atraumatic. EYES: PERRLA and EOMI. ENT: Nares clear, no rhinorrhea or epistaxis. Mucous membranes moist. NECK: Supple. CHEST: No respiratory distress. HEART: Regular rate and rhythm. ABDOMEN: nondistended BACK: +bilateral paraspinal tenderness of lower lumbar spine extending into R buttocks EXTREMITIES: Normal range of motion. No edema. DP/PT pulses 2+ bilaterally SKIN: Warm, dry, no rash. NEURO: No focal deficits. Alert and oriented x3. 5/5 strength in all extremities, no sensory defici
[2023-02-24] MEDS: CYCLOBENZAPRINE HCL 10 MG TABLET PO (13:25)
== END 2023-02-24 13:34 | disposition home or self-care (01) ==
PROVIDERS: Emergency Provider Emergency Medicine
DX: M54.16 Radiculopathy, lumbar region (principal); K21.9 Gastro-esophageal reflux disease without esophagitis; M81.0 Age-related osteoporosis without current pathological fracture; M19.90 Unspecified osteoarthritis, unspecified site; M41.9 Scoliosis, unspecified; G47.30 Sleep apnea, unspecified; Z87.440 Personal history of urinary (tract) infections; Z86.16 Personal history of COVID-19
CPT/HCPCS: 99283; A9270; J1100

== ENCOUNTER 2024-01-11 13:34 | Outpatient (CLI) | payer OTHER, SELFPAY ==
--- NOTE | ~2024-01-11 | MR_ITS ---
EXAMINATION: MR knee RT wo con DATE: 01/11/2024 14:26 INDICATION: Bilateral primary osteoarthritis of the knees TECHNIQUE: Magnetic resonance imaging (MRI) of the right knee was performed without intravenous contr ast. Sequences included coronal PD-weighted FSE, coronal PD-weighted FS FSE, sagittal T2-weighted FS E, sagittal PD-weighted FS FSE and axial PD weighted fat saturated FSE. COMPARISON: Right knee radiographs dated 09/19/2023 FINDINGS: Medial compartment: Small longitudinal vertical tear contacting the inferior articular surface and the peripheral third o f the junction of the posterior horn and body of the medial meniscus. Diffuse mild partial-thickness cartilage loss with smooth chondral surface and without degenerative subchondral changes along the me dial tibial plateau and weightbearing medial femoral condyle. Lateral compartment: Complex tear at the junction of the body and posterior horn of the lateral meniscus with additional l ongitudinal horizontal tear plane extending to the inferior articular surface near the free edge of t he more anterior body and anterior horn of the lateral meniscus. Deep chondral ulceration along the l ateral margin of the anterior to central weightbearing medial femoral condyle with associated cortica l irregularity and underlying subarticular edema-like and cystlike changes. Additional deep chondral ulceration with minimal underlying edema-like signal change at the central to lateral aspect of the l ateral tibial plateau. Small to moderate sized marginal osteophytes are present. Patellofemoral compartment: Articular cartilage is normal. Ligaments and tendons: Anterior and posterior cruciate ligaments are normal. The medial collateral ligament and fibular bishop ateral ligament complex are normal. The extensor mechanism is normal. The visualized medial and later al hamstring tendons as well as the iliotibial band are normal. Fluid: Small right knee joint effusion at the suprapatellar pouch. No loose osteochondral bodies identified. Osseous/other: Bone alignment is normal. No fracture or pathologic marrow replacing process. IMPRESSION: 1. Complex lateral meniscal tear with moderate osteoarthritis with high-grade chondral malacia in the lateral compartment. 2. Small longitudinal vertical tear at the peripheral third at the junction of the body and posterior of the medial meniscus with mild osteoarthritis in medial compartment. 3. Small right knee joint effusion. Reviewed, dictated and finalized at location A. IMPRESSION: 1. Complex lateral meniscal tear with moderate osteoarthritis with high-grade c hondral malacia in the lateral compartment. 2. Small longitudinal vertical tear at the peripheral third at the junction of the body and posterior of the medial meniscus with mild osteoarthritis in media l compartment. 3. Small right knee joint effusion.
== END 2024-01-11 13:35 | disposition home or self-care (01) ==
PROVIDERS: Visit Provider Physician Assistant Surgical
DX: M17.0 Bilateral primary osteoarthritis of knee (principal); S83.271A Complex tear of lateral meniscus, current injury, right knee, initial encounter; M94.261 Chondromalacia, right knee; M25.461 Effusion, right knee; S83.221A Peripheral tear of medial meniscus, current injury, right knee, initial encounter; X58.XXXA Exposure to other specified factors, initial encounter
CPT/HCPCS: 73721

== ENCOUNTER 2024-12-04 14:23 | Outpatient (CLI) | payer OTHER, SELFPAY ==
--- OUTSIDE RECORDS SUMMARY | 2024-12-04 15:01 | XMS_ITS | Encounter Summary ---
Author Organization [facility] Address [address] [place] [id number] Care Team Providers Care Pattern Data Operator Name Role Phone Dary Soria MD Primary Care Provider [phone] Reason for Referral * Radiology Services (Routine) - Closed Specialty Diagnoses / Procedures Referred By Contac t Referred To Contact Diagnoses Chest pain, unspecified type Procedures NM MYOCARD PERF REST STRESS Cristian Palacios MD [address] [place] [phone] [facility] [address] [place] [address], [place] [phone] Referral ID Status Reason Start Date Expiration Date Visits Re quested Visits Authorized [id number] Closed 11/27/2024 12/27/2024 1 1 Reason for Visit * Radiology Services (Routine) - Closed Specialty Diagnoses / Procedures Referred By Contac karolina Referred To Contact Diagnoses Chest pain, unspecified type Procedures NM MYOCARD PERF REST STRESS Cristian Palacios MD [address] [place] [phone] [facility] [address] [place] [address], [address] [id number] Referral ID Status Reason Start Date Expiration Date Visits Re quested Visits Authorized [id number] Closed 11/27/2024 12/27/2024 1 1 Encounter Details Date Type Department Care Team (Late st Contact Info) Description 12/04/2024 8:30 AM CDT Hospital Encounter [facility] [address] [place] [address] [address] [place] [address] Cristian Palacios MD [address] [place] [address] [address] [place] [phone] Social History Tobacco Use Types Packs/Day Years Used Date Smoking Tobacco: Never Passive Smoke Exposure: Never Smokeless Tobacco: Never Sex and Gender Information Value Date Recorded Sex Assigned at Not on file Gender Identity Not on file Sexual Orientation Not on file documented as of this encounter Plan of Treatment Upcoming Encounters Date Type Department Care Team (Late st Contact Info) Description 04/29/2025 11:30 AM CDT Office Visit [facility] [address] [place] [address] [address] [place] [address] Cristian Palacios MD [address] [place] [phone] Pending Results Name Type Priority Associated Diagnoses Date /Time NM MYOCARD PERF REST STRESS Cardiac Nuc Med Routine Chest pain, unspecified type 12/04/2024 10:14 AM CDT Scheduled Orders Name Type Priority Associated Diagnoses Orde r Schedule NM MYOCARD PERF REST STRESS Cardiac Nuc Med Routine Chest pain, unspecified type 1 Occurrences starting 12/04/2024 until 12/04/2024 documented as of this encounter Visit Diagnoses Diagnosis Chest pain, unspecified type documented in this encounter Care Teams Pattern Data Operator Relationship Specialty Start Date End Date Dary Soria MD [address] [facility] [address] [place] [id number] PCP - General Internal Medicine 11/25/24 documented as of this encounter
--- OUTSIDE RECORDS SUMMARY | 2024-12-04 15:01 | XMS_ITS | Clinical Summary ---
Author Organization [facility] Address [address] [place] [address] Phone Care Team Providers Care Nurse General Duty Name Role Phone Angeline Sawyer MD Unavailable [phone] Dary Soria MD Primary Care Provider Allergies Active Allergy Reactions Criticality Noted Date Comments Amoxicillin Other (See comments) Low 12/29/2007 Pt states that this shouldn't be in the chart. Erythromycin Palpitations,Unknown Low 12/29/2007 Erythromycin Estolate Other (See comments) Low 11/2007 Hay Fever And Allergy Relief Eye irritation,Itching,S hortness of breath,Sneezing High 06/30/2021 Levofloxacin Other (See comments) Low 06/30/2021 Psych reactions Psych reactions Nitrofurantoin Anaphylaxis High 06/30/2021 Sulfa (Sulfonamide Antibiotics) Rash,Shortness of breath High 08/24/2005 Trimethoprim Other (See comments),Shortness of breath High 06/30/2021 Finger joints become stuck in place Finger joints become stuck in place Medications azelaic acid 15 % foam Active acetaminophen (TYLENOL) 500 mg tablet Take 800 mg by mouth every 6 (six) hours as needed for pain Active pantoprazole DR (PROTONIX) 20 mg EC tablet Take 1 tablet (20 mg total) by mouth 2 (two) times a day 84 tablet 2 Active fluticasone propionate (FLONASE) 50 mcg/actuation nasal spray Administer 2 sprays into each nostril daily 16 g 5 2 Active alendronate (FOSAMAX) 70 mg tabletIndication s:Age-related osteoporosis without current pathological fracture Take 1 tablet (70 mg total) by mouth every 7 days Take in the morning with a full glass of water, on an empty stomach, and do not take anything else by mouth or lie down for the next 30 min. 12 tablet 3 4 Active estradioL (VAGIFEM) 10 mcg tabletIndication s:Postmenopausal atrophic vaginitis Insert one tablet into vagina twice weekly 24 tablet 3 4 Active naproxen (NAPROSYN) 500 mg tablet Take 1 tablet (500 mg total) by mouth 2 (two) times a day 4 Active erythromycin (ILOTYCIN) ophthalmic ointmentIndicati ons:Hordeolum internum of right upper eyelid Apply to right eye 4 (four) times a day for 7 days 3.5 g 5 025 Active cephalexin (KEFLEX) 500 mg capsuleIndicatio ns:Hordeolum internum of right upper eyelid Take 1 capsule (500 mg total) by mouth 2 (two) times a day for 10 days 20 capsule 5 025 Active ciprofloxacin (CIPRO) 500 mg tablet Take 1 tablet (500 mg total) by mouth as needed 3 025 Discontin ued(Thera py completed ) cephalexin (KEFLEX) 500 mg capsule 4 025 Discontin ued(Thera py completed ) Active Problems Problem Noted Date Diagnosed Date Hordeolum internum of right upper eyelid 025 Assessment & Plan (12/02/2024 11:17 AM CDT): Has been using erythromycin dutch; has erytrhomycin as allergy on chart Recommend to stop dutch at this time Has taken keflex several times in past Will start 500mg PO BID x 10 days If no improvement or worsening of s/s RTC; alternative would be doxycycline (allergic to trimetorhprim and levofloxacin) Has visit scheduled with Dr. 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 09/25/2024 Encounter for preventive health examination 09/28 Assessment & Plan (04/21/2024 2:01 PM CDT): General - HbA1c: 5.4% 03/2023 - Lipid panel: LDL 127 03/2023 - ASCVD score: 1.7% low risk - DEXA scan: UTD 04/2022, repeat 04/2024 Cancer - Colonoscopy: UTD 03/2022, repeat 03/2027 - Mammogram: UTD 05/2023, repeat 05/2024 - Pap: UTD 10/2021, repeat per [facility] Immunizations - Influenza: Recommend annually - Td/Tdap: UTD 07/2021, repeat 07/2031 - PCV20: Discuss at 64 - Shingles: UTD x 2 2020 - COVID: Recommended Assessment & Plan (10/23/2023 12:43 PM POUND KEEPER): General - HbA1c: 5.4% 03/2023, repeat annually - Lipid panel: LDL 127 03/2023, repeat annually - ASCVD score: 2.2% low risk - DEXA scan: UTD 04/2022, repeat 04/2024 Cancer - Colonoscopy: UTD 03/2022, repeat 03/2027 - Mammogram: UTD 05/2023, repeat 05/2024 - Pap: UTD 10/2021, repeat per [employer] Immunizations - Influenza: Recommended - Td/Tdap: UTD 07/2021, repeat 07/2031 - PCV20: Discuss at 64 - Shingles: UTD x 2 2020 - COVID: Recommended Primary osteoarthritis involving multiple joints 10/23/2023 Assessment & Plan (04/21/2024 3:17 PM CDT): Considering R knee replacement. Assessment & Plan (10/23/2023 12:43 PM POUND KEEPER): Chronic, does use NSAIDs occasionally. Discussed risks, benefits, and alternatives. Prediabetes 08/04/2022 Assessment & Plan (04/21/2024 3:16 PM CDT): A1c normal on last check. Anxiety 08/04/2022 Assessment & Plan (04/21/2024 3:16 PM CDT): Increasing anxiety lately about memory and health. Reassurance provided today. Consider SSRI in future. Assessment & Plan (08/04/2022 6:18 PM POUND KEEPER): Large amount of life stressors Overwhelmed Discussed starting lexapro Discussed it takes one month to see full effect of prescribed dose. Advised regarding potential side effects, questions answered FU in one month. Reach out of any issues or concerns Age related osteoporosis 05/11/2022 Overview (08/04/2022): Noted on Dexa 2021 Fosamax Assessment & Plan (04/21/2024 3:16 PM CDT): Continues on Fosamax 70 mg daily. - Continue current regimen Assessment & Plan (10/23/2023 12:41 PM POUND KEEPER): Continues on Fosamax 70 mg daily. - Continue current regimen Assessment & Plan (08/04/2022 6:22 PM POUND KEEPER): Noted on Dexa 2021 Fosamax Age-related nuclear cataract of both eyes 2021 Assessment & Plan (12/02/2024 11:17 AM CDT): Recently got new SRx, NVS Pharyngeal dysphagia 08/03/2021 Assessment & Plan (04/21/2024 3:16 PM CDT): Follows with ENT and GI, has been persistent over about 6 years or so. She has had several EGDs with dilation, but without improvement in her symptoms. Additionally does not report sensation of food getting stuck, so less likely to be etiology of her symptoms. She more describes choking sensation, seemingly more pharyngeal in etiology. She is working with ENT and PT to work on rehab. GI treating for globus sensation. Assessment & Plan (10/23/2023 12:41 PM POUND KEEPER): Follows with ENT and GI, has been persistent over about 5 years or so. She has had several EGDs with dilation, but without improvement in her symptoms. Additionally does not report sensation of food getting stuck, so less likely to be etiology of her symptoms. She more describes choking sensation, seemingly more pharyngeal in etiology. She is working with ENT and PT to work on rehab. GI treating for globus sensation. Discussed possible trial of TCA, she would like to defer for now. Gastroesophageal reflux disease 06/30/2021 Overview (08/04/2022): F/b GI Zohaib Chery. , 09/2021: H. Pylori. Treated with Amoxicilin. clarithromycin and proton inhibitor initially Plan metronidazole 500mg four times daily. Doxycyclin 100mg two times daily. Peptobismol 2 labs four times daily. Jamie pantoprazole to 40mg twee daily. Take all of these medications for two weeks. Choking sensation. ? Relation to reflux. 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 See GERD handout Continue evaluation with Dr. Morris. Problems swaMowing breads/rice etc. Cut and chew food well. Anticipate repeat endoscopy and dilation . H. pylori infection which was treated in 2019 with amoxicillin, clarithromycin, PPI. However, subsequent breath test was positive. There were plans for Pylera, but the patient never completed the therapy as the Covid pandemic started. She also has a history of a small colon adenoma in 2016 as well as three 6to 9 mm adenomas in 2019. Her mother as had a few colon polyps. She does not believe there are any large polyps. There is no family history of colon cancer. Assessment & Plan (04/21/2024 3:16 PM CDT): See above, follows with Dr. Shrestha. - Continue pantoprazole 40 mg BID Assessment & Plan (10/23/2023 12:41 PM POUND KEEPER): See above, follows with Dr. Shrestha. - Continue pantoprazole 40 mg BID Assessment & Plan (08/04/2022 6:23 PM POUND KEEPER): F/b GI Michael. ALINA Chery, reviewed note 09/2021: H. Pylori. Treated with Amoxicilin. clarithromycin and proton inhibitor initially Plan metronidazole 500mg four times daily. Doxycyclin 100mg two times daily. Peptobismol 2 labs four times daily. Jamie pantoprazole to 40mg twee daily. Take all of these medications for two weeks. Choking sensation. ? Relation to reflux. Change pantoprazole to 40mg twice baeza before breakfast and supper snf Avoid eating 4 hours before lying down. See GERD handout Continue evaluation with Dr. Morris. Problems swaMowing breads/rice etc. Cut and chew food well. Anticipate repeat endoscopy and dilation . She also has a history of a small colon adenoma in 2016 as well as three 6to 9 mm adenomas in 2019. Her mother as had a few colon polyps. She does not believe there are any large polyps. There is no family history of colon cancer. Assessment & Plan (10/03/2021 11:04 AM POUND KEEPER): Followed by her PCP. Chronic and stable. She will continue taking her Pepcid for acid reflux control. Assessment & Plan (09/05/2021 9:54 AM POUND KEEPER): Followed by her PCP and controlled on her Pepcid. Recommend that she continue her Pepcid. Scoliosis of thoracic spine 06/30/2021 Overview (08/04/2022): F/b Dr. Ramey Wanting to start PT for her back Assessment & Plan (04/21/2024 3:17 PM CDT): Stable. Assessment & Plan (08/04/2022 6:20 PM POUND KEEPER): F/b Dr. Ramey Wanting to start PT for her back Environmental allergies 06/30/2021 Assessment & Plan (04/21/2024 3:16 PM CDT): Stable. Resolved Problems Problem Noted Date Diagnosed Date Resolved Date Folliculitis 10/23/2023 04/21/2024 Assessment & Plan (10/23/2023 12:42 PM POUND KEEPER): Area of purple-red discoloration at site of scar, seems to have pustule. Will treat as folliculitis. No underlying fluctuance or evidence of dehiscence on exam. - Keflex QID x 5 days - Warm compresses to promote drainage - RTC if no improvement COVID-19 04/27/2022 10/23/2023 Assessment & Plan (04/27/2022 8:05 PM CDT): Meets criteria for paxlovid Medication list reviewed- no interactions H. pylori infection 04/18/2022 10/23/19 Overview (08/04/2022): H. pylori infection which was treated in 2019 with amoxicillin, clarithromycin, PPI. However, subsequent breath test was positive. There were plans for Pylera, but the patient never completed the therapy as the Covid pandemic started. Assessment & Plan (08/04/2022 6:24 PM POUND KEEPER): H. pylori infection which was treated in 2019 with amoxicillin, clarithromycin, PPI. However, subsequent breath test was positive. There were plans for Pylera, but the patient never completed the therapy as the Covid pandemic started. Health care maintenance 04/18/202209/28 Overview (08/04/2022): Images from the original note were not included. C scope 03/2022 completed at [facility], repeat due in 5 years 05/09/22 IMPRESSION: BI-RADS ATLAS category (overall): 0 - Incomplete: Needs Additional Imaging Evaluation 1. Two small focal asymmetries are identified in the upper outer right breast at middle depth. Further evaluation with right unilateral diagnostic mammogram and possible sonogram is recommended. No suspicious findings are identified in the left breast on mammogram. Annual screening mammogram recommended in 12 months. 06/12/2022 1. An oval hypoechoic mass with circumscribed margins is noted at the 9 o'clock position of the right breast 7 cm from the nipple, measuring 8 mm. This is probably benign, and follow-up is recommended in 6 months with right unilateral diagnostic mammogram and sonogram to document stability. 2. Other small masses in the outer right breast correspond to benign cysts, and require no additional workup or follow-up. BIRADS: 3 - Probably Benign (order placed) Assessment & Plan (08/04/2022 6:28 PM POUND KEEPER): C scope 03/2022 completed at [facility], repeat due in 5 years 06/12/2022 1. An oval hypoechoic mass with circumscribed margins is noted at the 9 o'clock position of the right breast 7 cm from the nipple, measuring 8 mm. This is probably benign, and follow-up is recommended in 6 months with right unilateral diagnostic mammogram and sonogram to document stability. 2. Other small masses in the outer right breast correspond to benign cysts, and require no additional workup or follow-up. BIRADS: 3 - Probably Benign (order placed) UTD on DEXA (osteoporosis) PVD (posterior vitreous detachment), right 02/14/2022 10/23/2023 Assessment & Plan (02/21/2022 2:34 PM CDT): Back early today for concerns about worsening floaters right eye (OD) -evaluated for new onset floaters originally 02/14/[address] Land then again 02/15/[address] Sevilla; no breaks found but did have hemorrhagic PVD at Dr. Adame's visit -today, retina still flat and attached with resolving heme inferiorly -has some complaints of pressure with eye movement; most likely related to sinuses and or dry eye as she stopped Flonase and Visine when ocular symptoms started; okay to use Flonase, recommend systane or Refresh rather than Visine -pt ed s/s retinal detachment (RD); okay to travel -RTC as scheduled 02/[address] Sevilla or sooner as needed Assessment & Plan (02/15/2022 2:04 PM CDT): Mildly hemorrhagic with mild inferior pre-retinal and peripheral heme without retinal breaks , elastic attacher zigzag 360 . Follow up 3-4 weeks Warning Sx RT/RD discussed Assessment & Plan (02/14/2022 2:15 PM CDT): Educated on findings and symptoms. No retinal holes/tears/or detachments noted in either eye with scleral depressed exam. Educated floater will resolve over course of weeks-months. Educated on symptoms of retinal changes (increase in floaters/flashes/curtain over vision) and to RTC STAT or go to ED should occur. Patient understands. RTC 6-8wk DFE both eyes (OU) Screening for colon cancer 08/03/2021 1 10/05/2021 Overview (08/03/2021): Added automatically from request for surgery [id number] Arthritis 06/30/2021 10/23/2023 Assessment & Plan (10/03/2021 11:04 AM POUND KEEPER): Followed by her PCP. Chronic and stable. She is controlled with her Tylenol and Voltaren gel and recommended that she continue this as needed. Assessment & Plan (09/05/2021 9:55 AM POUND KEEPER): Followed by her PCP and controlled with Tylenol and Voltaren gel. Recommend that she continue the Tylenol and Voltaren gel for symptomatic relief of arthritis. Chronic UTI 06/30/2021 04/23/2023 Varicose veins of left lower extremity with pain 06/30/2021 10/23/2023 Assessment & Plan (10/03/2021 11:03 AM POUND KEEPER): Patient does not have any varicose veins of the bilateral lower extremities and only has spider veins. She does not have any dilation or reflux of the saphenous veins. We will refer her for injection of her spider veins but no other surgical intervention is necessary. She can continue to wear her compression stockings and follow up as needed. Assessment & Plan (09/05/2021 9:56 AM POUND KEEPER): Patient has spider veins on her bilateral lower extremities and seem to be getting more prominent over time. She says that she has had them injected previously. She had been seeing someone for years about these and has been wearing compression stockings but has moved here now and would like to establish care. Plan will be to have her follow up in 2 weeks with a venous reflux study. If the great saphenous vein is dilated and refluxing then plan will be for an endovenous laser ablation. Otherwise she will need injections of these spider veins. I discussed all this with the patient she understands. Encounters Date Type Department Care Team Description 12/04/2024 Telephone [facility] ([facility] - [facility] ENT [address] [place] [phone] Erin Rondon 12/03/2024 Orders Only [facility] Otolaryngology [address], [address] [place] [address] Abby Chew RN Dizziness and giddiness (Primary Dx) 12/02/2024 11:00 AM CDT Office Visit [facility] Ophthalmology [address], [address] [place] [address] Manolo Garcia, OD Hordeolum internum of right upper eyelid (Primary Dx); Age-related nuclear cataract of both eyes 12/02/2024 Telephone [facility] Ophthalmology [address] [place] [address] Dion Pinto MD new symptoms 12/01/2024 1:00 PM CDT Procedure visit [facility] Otolaryngology [address] [place] [address] [place] [address] Colleen Patel Au.D. 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 Discharge Disposition: Discharge to home or self care 09/25/2024 1:00 PM POUND KEEPER Office Visit [facility] ENT [address] [place] [address] Office [facility] [address] [phone] Marifer Gonzalez MD 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 (Primary Dx) 09/08/2024 1:20 PM POUND KEEPER Procedure visit [facility] ENT [address] [place] [address] Office [address] [phone] Cody Ho MD Globus sensation (Primary Dx); Chronic throat clearing 09/08/2024 Orders Only [facility] ENT [address] [place] [address] Medical Office Building [address] [phone] Cody Ho MD Globus sensation (Primary Dx) from Last 3 Months Immunizations Immunization Administration Dates Next Due Influenza, Quadrivalent, Rec ombinant, Egg Free, Preservative Free, Intramuscular 06/08/2020 Influenza, Unspecified 10/23/2023(Deferred: Mmia ent Refused) Tdap 08/03/2021 ZOSTER Recombinant 04/15/2021,01/15/2021 Surgical History Surgery Date Site/Laterality Comments SECTION 3 ABDOMINAL SURGERY removal of right ovary and appendix FOOT SURGERY 08/27/2009 - 08/26/2010 Left APPENDECTOMY COLONOSCOPY Medical History Medical History Date Comments Allergic rhinitis Osteoarthritis Chronic UTI H. pylori infection 04/18/2022 Scoliosis Osteoporosis GERD (gastroesophageal reflux disease) Anxiety Cataract Globus sensation HL (hearing loss) 06/18 Sleep apnea 2018 Family History Medical History Relation Name Comments Diabetes Brother 1 Supa Adina Obesity Brother 1 Supa Adina Rashes / Skin problems Brother 1 Supa Adina Seizures Brother 1 Supa Adina Snoring Brother 1 Supa Adina Obesity Brother 2 Joe Adina Snoring Brother 2 Joe Adina Cancer Father Siva Holden Cataracts Father Siva Holden Glaucoma Father Siva Holden Hearing loss Father Siva Holden Heart attack Father Siva Holden Snoring Father Siva Holden Alcohol abuse Maternal Grandfather Ortega Cataracts Maternal Grandmother Glaucoma Maternal Grandmother Arthritis Mother Sofia Holden Cataracts Mother Sofia Holden Clotting disorder Mother Sofia Holden Glaucoma Mother Sofia Holden Obesity Mother Sofia Holden Osteoarthritis Mother Sofia Holden Parkinsonism Mother Sofia Holden ADD / ADHD Son Siva Stevens d'[place] defects Son Siva patel'Altavillbrian Breast cancer Neg Hx Colon cancer Neg Hx Ovarian cancer Neg Hx Uterine cancer Neg Hx Relation Name Status Comments Brother 1 Supa Rushingy Brother 2 Joe Rushingy Father Siva Holden Maternal Grandfather Ortega Maternal Grandmother Mother Sofia Holden Son Siva patel'Altavilla Social History Tobacco Use Types Packs/Day Years Used Date Smoking Tobacco: Never Passive Smoke Exposure: Never Smokeless Tobacco: Never Tobacco Cessation:Counseling Given: Not Answered AUDIT-C Answer Date Recorded Q1: How often do you have a drink containing alc ohol? Monthly or less 07/23/2023 Q2: How many drinks containi ng alcohol do you have on a typical day when you are drinking? 1 or 2 07/23/2023 Q3: How often do you have si x or more drinks on one occasion? Never 07/23/2023 PHQ-2 Answer Date Recorded PHQ-2 Total Score (If total score is 3 or more points, staff should administer the PHQ-9) 0 04/21/2024 Exercise Vital Sign Answer Date Recorde d On average, how many days pe r week do you engage in moderate to strenuous exercise (like a brisk walk)? 0 days 08/04/2022 On average, how many minutes do you engage in exercise at this level? 0 min 08/04/2022 Comments No Sex and Gender Information Value Date Recorded Sex Assigned at Not on file Legal Sex Female 2:05 PM CDT Gender Identity Female 06/29/2021 7:49 PM CDT Sexual Orientation Not on file Obstetrics History Para Term AB IAB SAB Ectopic Multiple Livin g Live Births 6 6 3 3 3 Date Outcome GA Total Labor Labor/2nd/3rd Weight Sex Type Anes PTL [place] A1 A5 Name Clin Term Term Term 1995 Para 3.969 kg (8 lb 12 oz) F CS-LT ranv Living 1998 Para 3.629 kg (8 lb) F CS-LT ranv Living 2007 Para 3.629 kg (8 lb) M CS-LT ranv Living Last Filed Vital Signs Vital Sign Reading Time Taken Comments Blood Pressure 114/71 11/30/2024 4:30 PM CDT Pulse 66 11/30/2024 4:30 PM CDT Temperature 36.4 C (97.5 F) 11/30/2024 4:30 PM CDT Respiratory Rate 20 11/30/2024 4:30 PM CDT Oxygen Saturation 98% 11/30/2024 4:30 PM CDT Inhaled Oxygen Concentration - - Weight 77.1 kg (170 lb) 11/30/2024 4:30 PM CDT Height 170.2 cm (5' 7 ) 07/08/2024 2:13 PM POUND KEEPER Body Mass Index 26.63 07/08/2024 2:13 PM POUND KEEPER Plan of Treatment Health Maintenance Due Date Last Done Comments Covid-19 Vaccine ( season) 2024 07/28/2022, 11/30/2021, 06/25/2021, Additional history exists Depression Screening 04/21/2025 04/21/2024, 04/19/2023, 08/04/2022, Additional history exists Regular Well Visit/Exam 18-64 04/21/2025 04/21/2024, 11/30/2023, 11/24/2022, Additional history exists Influenza Vaccine (Season Ended) 2025 06/08/2020 Breast Cancer Screening-Mammogram 06/26/2025 06/26/2024, 06/20/2023, 05/09/2022 Cervical Cancer Screening 11/22/2026 11/22/2021 Colon Cancer Screening-Colonoscopy 04/14/2027 04/14/2022, 04/14/2022 DTaP/Tdap/Td Vaccine (2 - Td or Tdap) 08/03/2031 08/03/2021 Zoster Vaccine Completed 04/15/2021, 01/15/2021 Hepatitis C Screening Completed 08/03/2021 Hepatitis B Screening Discontinued Pneumococcal vaccine <65 Aged Out No longer eligible based on patient's age to complete this topic Procedures Procedure Name Priority Date/Time Associated Diagnosis Comments CT TEMPORAL BONES WO CONTRAST Schedule Routine, Read Routine (OP Routine) 10/07/2024 4:41 PM POUND KEEPER 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 DIAGNOSTIC MAMMOGRAM BILATERAL W JAH Schedule Routine, Read Routine (OP Routine) 06/26/2024 10:33 AM CDT Mammogram abnormal HM COLONOSCOPY Routine 04/14/2022 PAP AND HIGH RISK HPV, REFLEX TO GENOTYPING Routine 11/22/2021 12:45 PM CDT Screening for malignant neoplasm of the cervix Screening for HPV (human papillomavirus) HEPATITIS C ANTIBODY Routine 08/03/2021 11:57 AM POUND KEEPER Need for hepatitis C screening test from Last 3 Months or Most Recently Relevant to Health Maintenance Results * CT Temporal Bones WO Contrast (10/07/2024 4:41 PM POUND KEEPER) Anatomical Region Laterality Modality Head and Neck N/A Computed Tomogra phy 10/07/2024 5:04 PM POUND KEEPER Impressions 10/07/2024 5:14 PM POUND KEEPER 1. 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 2. Thinning of the tegmen tympani and mastoideum bilaterally. Dictated by: Murtaza Castillo M.D. The radiology attending physician has personally reviewed this study, and had reviewed and/or edited this written report and agrees with it. Electronically signed by: Denisse Loredo MD Narrative 10/07/2024 5:14 PM POUND KEEPER EXAMINATION: CT of the temporal bones without contrast HISTORY: 59 years-old Female with audiologic findings concerning for left superior semicircular canal dehiscence. TECHNIQUE: CT of the temporal bones was performed according to the standard protocol without intravenous contrast. COMPARISON: None Available. FINDINGS: Right: The external auditory canal is patent with scattered areas of cerumen. The tympanic membrane is nearly imperceptible. Ossicular alignment and mineralization is normal. The scutum is sharp. The epitympanum, mesotympanum, and hypotympanum are patent. There is severe thinning of the tegmen tympani and tegmen mastoideum. The cochlea and vestibule are normal. The lateral and posterior semicircular canals are normal. There is thinning of the arcuate eminence overlying the right semicircular canal. The otic capsule is otherwise normal. Internal auditory canal is normal. The vestibular and cochlear aqueducts are normal. The mastoid air cells are normally aerated. The course of the facial nerve is normal. Left: The external auditory canal is patent. The tympanic membrane is nearly imperceptible. The scutum is sharp. The epitympanum, mesotympanum, and hypotympanum are normal. Ossicular alignment and mineralization is normal. There is severe thinning of the tegmen tympani and tegmen mastoideum. The cochlea and vestibule are normal. There is dehiscence of the arcuate eminence overlying the superior semicircular canal (series 8 image 31). The lateral and posterior semicircular canals are normal. The vestibular and cochlear aqueducts are normal. The internal auditory canal is normal. The course of the facial nerve is normal. The otic capsule is not demineralized. The mastoid air cells are normally aerated. Mild degenerative changes present in both temporomandibular joints. Imaged portions of the paranasal sinuses are normally aerated. The left clinoid process is aerated. Imaged intracranial contents demonstrate no acute abnormality. Procedure Note Denisse Loredo MD PhD - 10/07/2024 EXAMINATION: CT of the temporal bones without contrast HISTORY: 59 years-old Female with audiologic findings concerning for left superior semicircular canal dehiscence. TECHNIQUE: CT of the temporal bones was performed according to the standard protocol without intravenous contrast. COMPARISON: None Available. FINDINGS: Right: The external auditory canal is patent with scattered areas of cerumen. The tympanic membrane is nearly imperceptible. Ossicular alignment and mineralization is normal. The scutum is sharp. The epitympanum, mesotympanum, and hypotympanum are patent. There is severe thinning of the tegmen tympani and tegmen mastoideum. The cochlea and vestibule are normal. The lateral and posterior semicircular canals are normal. There is thinning of the arcuate eminence overlying the right semicircular canal. The otic capsule is otherwise normal. Internal auditory canal is normal. The vestibular and cochlear aqueducts are normal. The mastoid air cells are normally aerated. The course of the facial nerve is normal. Left: The external auditory canal is patent. The tympanic membrane is nearly imperceptible. The scutum is sharp. The epitympanum, mesotympanum, and hypotympanum are normal. Ossicular alignment and mineralization is normal. There is severe thinning of the tegmen tympani and tegmen mastoideum. The cochlea and vestibule are normal. There is dehiscence of the arcuate eminence overlying the superior semicircular canal (series 8 image 31). The lateral and posterior semicircular canals are normal. The vestibular and cochlear aqueducts are normal. The internal auditory canal is normal. The course of the facial nerve is normal. The otic capsule is not demineralized. The mastoid air cells are normally aerated. Mild degenerative changes present in both temporomandibular joints. Imaged portions of the paranasal sinuses are normally aerated. The left clinoid process is aerated. Imaged intracranial contents demonstrate no acute abnormality. IMPRESSION: 1. 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 2. Thinning of the tegmen tympani and mastoideum bilaterally. Dictated by: Murtaza Castillo M.D. The radiology attending physician has personally reviewed this study, and had reviewed and/or edited this written report and agrees with it. Electronically signed by: Denisse Loredo MD Marifer Gonzalez MD IMG CT PROCEDURES Final Resul t * Diagnostic Mammogram Bilateral W Jah (06/26/2024 10:33 AM CDT) Anatomical Region Laterality Modality Breast Bilateral Mammography 06/26/2024 3:38 PM CDT Addenda Addendum by Allie Atkins MD on 07/02/2024 9:41 AM POUND KEEPER ADDENDUM: THE MAMMOGRAPHIC FINDINGS ARE DESCRIBED BELOW. HISTORY: Bilateral nipple discharge COMPARISON(S): 06/20/2023 TECHNIQUE: Full-field 2D images and digital breast tomosynthesis were obtained. CAD was utilized. BREAST PARENCHYMAL COMPOSITION: There are scattered areas of fibroglandular density. FINDINGS: There are no suspicious masses. No suspicious calcifications are seen. There is no unexplained architectural distortion. There is no skin thickening seen. There are no mammographically abnormal lymph nodes seen in the axillae or elsewhere. IMPRESSION: There is no mammographic evidence to suggest malignancy. FINAL ASSESSMENT: BI-RADS Category 1: Negative. Electronically signed by: Allie Atkins M.D. Narrative 06/26/2024 3:48 PM CDT EXAM DESCRIPTION: US BREAST RIGHT LIMITED; DIAGNOSTIC MAMMOGRAM BILATERAL W JAH REASON FOR STUDY: Bilateral nipple discharge, color uncertain. COMPARISON: Mammogram from June 19 ULTRASOUND TECHNIQUE: Grayscale interrogation of the retroareolar regions of the bilateral breast/breasts acquired. Selected color doppler/spectral images saved to PACS. ULTRASOUND FINDINGS: No cystic or solid masses identified. IMPRESSION: No positive findings to suggest malignancy are seen. Given that the clinical symptoms are bilateral, it is unlikely these relate to malignancy. The patient may continue screening as per ACR guidelines. BI-RADS 1 - Negative. THIS IS AN ELECTRONICALLY VERIFIED FINAL REPORT 06/26/2024 3:48 PM - Electronically signed by Allie Atkins M.D. LD: LILLIANA Report ID: [id number] Reading Location: [facility] Angeline Sawyer MD IMG MAMMO PROCEDURES Edited Result - Final * (ABNORMAL) COLONOSCOPY (04/14/2022) Scribed Colonoscopy Abnormal Generic External Data Provider HEALTH MAINTENANC E Final Result * Pap and High Risk HPV, reflex to Genotyping (11/22/2021 12:45 PM CDT) Thin prep (Pap test) 11/22/2021 12:45 PM CDT 11/24/2021 3:29 PM CDT Narrative PATHOLOGY [facility] - 11/29/2021 3:09 PM CDT EPIC results best viewed via link to PDF [address] [address] Tele: Merlyn Morales MD - Assistant Foreman CYTOLOGY REPORT Note to Patients: This report may contain a detailed description of human tissue sent by a health care provider to the laboratory for pathologic evaluation. The content of this report is essential for diagnosis and may provide important critical findings. This information may be unfamiliar to patients to review without a medical professional present. It is advised that the patient review this report in the presence of a health care provider who can answer questions and explain the details. Patient Name: SUYAPA DE LEON Address: [address] [place] [address] Gender: F : 1965 (Age: 56) Service: Location: N : [id number] [facility] #: [id number] Patient Type: [facility] SPECIMEN Taken: 11/22/2021 Reported: 11/29/2021 Physician(s): Angeline Sawyer MD FINAL DIAGNOSIS: Specimen Type: - ThinPrep Pap and HPV w/ reflex Genotyping Statement of Specimen Adequacy: Source: Cervical/Endocervical - Satisfactory for interpretation - Endocervical/Transformation zone component absent or insufficient - Case screened using computer assisted imaging technology and manually re- screened by a tongue presser. General Categorization: - Negative for intraepithelial lesion or malignancy jxm/11/29/2021 15:09 CHAKA Vazquez (ASCP) CHAKA Pelayo (ASCP) Report Reviewed and Electronically Signed By CHAKA Pelayo (ASCP) Clerical Data Follow A; [id number] DIAGNOSIS COMMENT: Ancillary Testing: HPV High Risk Group (16, 18, 31, 33, 35, 39, 45, 51, 52, 56, 58, 59, 66 and 68) - Not Detected Reference Range: Not Detected This test was performed using the MACIEL 4800 CLINICAL DIAGNOSIS AND HISTORY Last Menstrual Period: UNKNOWN Menstrual History: Post-menopausal This specimen has been rescreened in accordance with the [facility] Laboratory Quality Management Program. REPORT IMAGES AND/OR SCANNED DOCUMENTS ONLY VIEWABLE IN PDF FORMAT The Pap test is a screening test used to aid in the detection of cervical cancer and its precursors. It should not be the sole means by which malignant and premalignant lesions are diagnosed. Both false negative and false positive results may occur. It also has poor sensitivity for the detection of endometrial lesions and should not be used to evaluate suspected endometrial abnormalities. For these reasons it is most important to obtain Pap tests at regular intervals, as recommended by your physician or nurse practitioner. us Angeline Sawyer MD LAB CYTOLOGY ORDERABLES Rhonda milner Result PATHOLOGY [facility] Receiving [address] [place] [address] * Hepatitis C antibody (08/03/2021 11:57 AM POUND KEEPER) Hep C Ab Nonreactive Nonreactive CLAUDIO [facility] Comment: Interpretive Data Nonreactive: Antibodies to HCV not detected. Does NOT exclude the possibility of recent exposure to HCV. Equivocal: Equivocal for HCV antibodies. Supplemental molecular testing will be automatically performed to determine infection status in accordance with current CDC screening recommendations. Reactive: Positive for HCV antibodies. This may represent current or past HCV infection. Supplemental molecular testing will be automatically performed to determine current infection status in accordance with current CDC screening recommendations. Interpretive data was last revised on 2019. Blood 08/03/2021 11:5 7 AM POUND KEEPER 08/03/2021 4:34 PM POUND KEEPER us Ana Carrillo DNP LAB MICROBIOLOGY - GENERAL O RDERABLES Final Result CLAUDIO [facility] [address] Department [place] [address] from Last 3 Months or Most Recently Relevant to Health Maintenance Insurance [facility] CLAIMS [facility] CLAIMS Care Teams Nurse General Duty Relationship Specialty Start Date End Date Dary Soria MD [address] [place] [address] PCP - General Internal Medicine 04/19/23 Angeline Sawyer MD [address] [place] [address] Consulting Physician Obstetrics and Gynecology 05/09/22
--- OUTSIDE RECORDS SUMMARY | 2024-12-04 15:01 | XMS_ITS | Encounter Summary ---
Author Organization [facility] Address [address] [place] [address] Phone Care Team Providers Care Linux Vmware Administrator Name Role Phone Angeline Sawyer MD Unavailable [phone] Dary Soria MD Primary Care Provider Encounter Details Date Type Department Care Team (Late st Contact Info) Description 12/04/2024 Telephone [facility] ([facility] - [facility] E[facility] [address] [facility] [place] [facility] [address] [place] [address] [place] [address] Erin Rondon MS Social History Tobacco Use Types Packs/Day Years Used Date Smoking Tobacco: Never Passive Smoke Exposure: Never Smokeless Tobacco: Never AUDIT-C Answer Date Recorded Q1: How often [...] PM CDT Sexual Orientation Not on file documented as of this encounter Miscellaneous Notes * Telephone Encounter - AlexBhavna - 12/04/2024 12:45 PM CDT Called and scheduled * Telephone Encounter - Bhavna Johnson - 12/04/2024 12:21 PM CDT Called and spoke with pt per cc'd chart message. Sent ib back for further advice documented in this encounter Plan of Treatment Not on file documented as of this encounter Visit Diagnoses Not on filedocumented in this encounter Care Teams Linux Vmware Administrator Relationship Specialty Start Date End Date Dary Soria MD [address] [facility] [address] [place] [address] PCP - General Internal Medicine 04/19/23 Angeline Sawyer MD [address] [facility] [address] [place] [address] Consulting Physician Obstetrics and Gynecology 05/09/22 documented as of this encounter
--- OUTSIDE RECORDS SUMMARY | 2024-12-04 15:01 | XMS_ITS | Encounter Summary ---
Author Organization [facility] Address [address] [place] [address] Phone Care Team Providers Care Rn Enterostomal Name Role Phone Angeline Sawyer MD Unavailable [phone] Dary Soria MD Primary Care Provider Reason for Referral * Consultation (Routine) - Authorized Specialty Diagnoses / Procedures Referred By Carson turcios Referred To Contact Audiology Diagnoses Dizziness and giddiness Marifer Gonzalez MD [address] [place] [address] Phone: tel: fax: [facility] (All Locations) Referral ID Status Reason Start Date Expiration Date Visits Requested Visits Authorized [id number] Authorized Specialty Services Required 12/03/2024 01/02/2026 1 1 Question Answer Please select the performing region: [facility] (All Locations) [[id number]] Are you referring for hearing device consultation? No Is this for Vestibular Testing? Yes Reason for Testing? Peripheral Vertigo Type? Additional Testing: VEMP/Platform/Canalith Repositioning (1 hour) # of visits: 1 Comments VEMP Encounter Details Date Type Department Care Team (Late st Contact Info) Description 12/03/2024 Orders Only [facility] Otolaryngology [address] [facility] [place] [address] Abby Chew RN Dizziness and giddiness (Primary Dx) Social History Tobacco Use Types Packs/Day Years [...] as of this encounter Plan of Treatment Scheduled Referrals Name Type Priority Associated Diagnoses Order Schedule Ambulatory referral to Audiology (ADULT) Outpatient Referral Routine Dizziness and giddiness Expected: 12/17/2024 (Approximate), Expires: 12/03/2025 documented as of this encounter Visit Diagnoses Diagnosis Dizziness and giddiness- Primary documented in this encounter Care Teams Rn Enterostomal Relationship Specialty Start Date End Date Dary Soria MD [address] [place] [address] PCP - General Internal Medicine 04/19/23 Angeline Sawyer MD [address] [place] [address] Consulting Physician Obstetrics and Gynecology 05/09/22 documented as of this encounter
--- OUTSIDE RECORDS SUMMARY | 2024-12-04 15:01 | XMS_ITS | Clinical Summary ---
Author Organization [facility] Address [address] [place] [address] Phone Care Team Providers Care Activities Officer Name Role Phone Rosa Loredo MD Primary Care Provider [phone] Allergies Active Allergy Reactions Criticality Noted Date Comments Amoxicillin Unknown 12/29/2007 Erythromycin Base Unknown 12/29/2007 Hay Fever And Allergy Relief Hives,Itching,Shortn ess of Breath/Wheezing,Head ache High 06/30/2021 Levofloxacin Other (See Comments) Low 06/30/2021 Psych reactions Nitrofurantoin Anaphylaxis High 06/30/2021 Nitrofurantoin Monohyd/M-Cryst Other (See Comments) High 05/09/2023 Unable to breath Sulfa (Sulfonamide Antibiotics) Rash Medium 06/30/2021 Sulfamethoxazole-Trimeth oprim Unknown 12/29/2007 Trimethoprim Shortness of Breath/Wheezing High 06/30/2021 Finger joints become stuck in place Medications ciprofloxacin HCl (CIPRO) 500 mg tablet Take 500 mg by mouth 2 times daily. PRN FOR UTI 10/13/2020 Active estradioL (VAGIFEM) 10 mcg tablet 08/03/2021 Active fluticasone propionate (FLONASE) 50 mcg/spray Marsing, Suspension nasal inhaler 09/08/2021 Active cephALEXin (KEFLEX) 500 mg capsule 09/15/2020 Active alendronate (FOSAMAX) 70 mg tablet Take 70 mg by mouth every 7 days. 02/15/2023 Active pantoprazole (PROTONIX) 40 mg Tablet, Delayed Release (E.C.) Take 1 Tablet (40 mg) by mouth 2 times daily before meals. 60 Tablet 11 05/07/2024 Active Active Problems No known active problems Encounters Date Type Department Care Team Description 11/25/2024 External Device Data [facility] ABSTRACTION Provider, Abstract 11/12/2024 External Device Data [facility]STRACTION Provider, Abstract 11/04/2024 External Device Data [facility] ABSTRACTION Provider, Abstract 11/04/2024 External Device Data [facility] ABSTRACTION Provider, Abstract 11/03/2024 External Device Data [facility] ABSTRACTION Provider, Abstract 11/01/2024 External Device Data [facility] ABSTRACTION Provider, Abstract 10/31/2024 External Device Data [facility] ABSTRACTION Provider, Abstract 10/29/2024 External Device Data [facility] ABSTRACTION Provider, Abstract 10/14/2024 External Device Data [facility] ABSTRACTION Provider, Abstract 09/17/2024 External Device Data [facility] ABSTRACTION Provider, Abstract 09/17/2024 External Device Data [facility] ABSTRACTION Provider, Abstract 09/10/2024 External Device Data [facility] ABSTRACTION Provider, Abstract from Last 3 Months Family History Medical History Relation Name Comments Ulcers Brother Ulcers Father Colon Polyps Mother Colon Cancer Neg Hx Relation Name Status Comments Brother Father Mother Social History Tobacco Use Types Packs/Day Years Used Date Smoking Tobacco: Never Passive Smoke Exposure: Never Smokeless Tobacco: Never Tobacco Cessation:Counseling Given: Not Answered Alcohol Use Standard Drinks/Week Comments Never 0 (1 standard drink = 0.6 oz pur e alcohol) Comments Unknown Sex and Gender Information Value Date Recorded Sex Assigned at Not on file Legal Sex Female 9:24 AM CDT Gender Identity Not on file Sexual Orientation Not on file Last Filed Vital Signs Vital Sign Reading Time Taken Comments Blood Pressure 106/69 05/07/2024 1:28 PM CDT Pulse 63 05/07/2024 1:28 PM CDT Temperature 36.4 C (97.5 F) 04/14/2022 11:51 AM CDT Respiratory Rate 18 04/14/2022 12:07 PM CDT Oxygen Saturation 100% 04/14/2022 12:07 PM CDT Inhaled Oxygen Concentration - - Weight 78.9 kg (174 lb) 05/07/2024 1:28 PM CDT Height 170.2 cm (5' 7 ) 05/09/2023 2:25 PM CDT Body Mass Index 27.25 05/09/2023 2:25 PM CDT Plan of Treatment Upcoming Encounters Date Type Department Care Team (Late st Contact Info) Description 05/06/2025 1:15 PM CDT Office Visit [facility] [address] [place] [address] Zohaib Shrestha MD [address] [place] [address] Health Maintenance Due Date Last Done Comments Pre-Diabetes and Diabetes Screening 1965 HPV/Cotest (21-29) 1985 HPV/Cotest (30-65) 1994 FIT-DNA Q 3 years 2009 FIT/FOBT Q 1 year 2009 Flex Sig/CT Colonography Q 5 years 2009 INFLUENZA VACCINE (#1) 2024 06/08/2020 BREAST CANCER SCREENING 06/20/2024 06/20/20 23, 12/14/2022, 06/12/2022, Additional history exists CERVICAL CANCER SCREENING 11/22/2024 PAP SMEAR 11/22/2024 11/22/2021 COLORECTAL SCREENING 04/14/2027 04/14/2022, 04/14/20 Colorectal Cancer Screening 04/14/2027 DTAP/TDAP/TD VACCINES (2 - Td or Tdap) 08/03/2031 08/03/2021 RSV VACCINE (60+ or ) (1 - 1-dose 75+ series) 2039 ZOSTER VACCINE Completed 04/15/2021, 01/15/2021 HEPATITIS B VACCINES Aged Out No long er eligible based on patient's age to complete this topic Procedures Procedure Name Priority Date/Time Associated Diagnosis Comments COLONOSCOPY REPORT 04/14/2022 11 :59 AM CDT from Last 3 Months or Most Recently Relevant to Health Maintenance Results * COLONOSCOPY REPORT (04/14/2022 11:59 AM CDT) Narrative Procedure Note Zohaib Shrestha MD - 04/14/2022 11:58 AM CDT [facility] Endoscopy Patient Name: Suyapa Macias Procedure Date: 04/14/2022 Date of : 1965 Attending MD: Zohaib Shrestha MD Procedure: Colonoscopy Indications: Surveillance: Personal history of adenomatous polyps, including small adenoma 2016 and three small adenomas on last colonoscopy 3 years ago Providers: Zohaib Shrestha MD Referring MD: Rosa Loredo Medicines: Monitored Anesthesia Care Complications: No immediate complications. Procedure: Informed consent was obtained for the procedure, including moderate sedation after risks were discussed. Based on the pre-procedure assessment, including review of the patient's medical history, medications, allergies, and review of systems, the patient was deemed to be an appropriate candidate for sedation. A timeout was performed. Continuous ECG monitoring, pulse oximetry, blood pressure monitoring, and direct observation were performed. The scope was introduced through the anus and advanced to the terminal ileum. The quality of the bowel preparation was excellent. Estimated Blood Loss: Estimated blood loss: none. Findings: Three sessile polyps were found in the proximal transverse colon and hepatic flexure. The polyps were 3 to 5 mm in size. These polyps were removed with a cold snare. Resection and retrieval were complete. The exam was otherwise normal throughout the examined colon. The terminal ileum appeared normal. Impression: - Three 3 to 5 mm polyps in the proximal transverse colon and at the hepatic flexure, removed with a cold snare. Resected and retrieved. - The examined portion of the ileum was normal. Recommendation: - Await pathology results. - Repeat colonoscopy in 5 years for surveillance. Zohaib Shrestha MD 04/14/2022 11:57:57 AM This report has been signed electronically. Number of Addenda: [address]; [place] [address] Zohaib Shrestha MD GI PROCEDURE ORDERABLES Final Result from Last 3 Months or Most Recently Relevant to Health Maintenance [place] [address] [address] Advance Directives For more information, please contact: [phone] * Full Code (Latest Code Status on File) Date Activated Date Inactivated Comments 04/14/2022 10:19 AM 04/14/2022 2:30 PM Care Teams Activities Officer Relationship Specialty Start Date End Date Rosa Loredo MD [address] [facility] [address] [place] [id number] PCP - General Internal Medicine 10/07/21
--- OUTSIDE RECORDS SUMMARY | 2024-12-04 15:01 | XMS_ITS | Encounter Summary ---
Author Organization [facility] Address [facility] [place] [address] Care Team Providers Care Wind Energy Engineer Name Role Phone Dary Soria MD Primary Care Provider [phone] Reason for Referral * Cardiac (Routine) - Closed Specialty Diagnoses / Procedures Referred By Carson turcios Referred To Contact Cardiology Diagnoses Chest pain, unspecified type Procedures STRESS TEST Treadmill Cristian Palacios MD [address] [place] [address] [address] [place] [address] Referral ID Status Reason Start Date Expiration Date Visits Re quested Visits Authorized [id number] Closed 11/26/2024 11/26/2025 1 1 Reason for Visit * Cardiac (Routine) - Closed Specialty Diagnoses / Procedures Referred By Carson turcios Referred To Contact Cardiology Diagnoses Chest pain, unspecified type Procedures STRESS TEST Treadmill Cristian Palacios MD [address] [place] [id number] Referral ID Status Reason Start Date Expiration Date Visits Re quested Visits Authorized [id number] Closed 11/26/2024 11/26/2025 1 1 Encounter Details Date Type Department Care Team (Late st Contact Info) Description 12/04/2024 8:30 AM CDT Hospital Encounter [facility] [address] [place] [address], [facility] [address] [place] [id number] Cristian Palacios MD [address] [place] [address] [address] [place] [address] Social History Tobacco Use Types Packs/Day Years Used Date Smoking Tobacco: Never Passive Smoke Exposure: Never Smokeless Tobacco: Never Sex and Gender Information Value Date Recorded Sex Assigned at Not on file Gender Identity Not on file Sexual Orientation Not on file documented as of this encounter Last Filed Vital Signs Vital Sign Reading Time Taken Comments Blood Pressure 117/75 12/04/2024 9:12 AM CDT Pulse 52 12/04/2024 9:12 AM CDT Temperature - - Respiratory Rate - - Oxygen Saturation - - Inhaled Oxygen Concentration - - Weight - - Height - - Body Mass Index - - documented in this encounter Plan of Treatment Upcoming Encounters Date Type Department Care Team (Late st Contact Info) Description 04/29/2025 11:30 AM CDT Office Visit [facility] Care [address] [place] [address] [address] [place] [address] Cristian Palacios MD [address] [place] [phone] Pending Results Name Type Priority Associated Diagnoses Date /Time STRESS TEST Treadmill Cardiac Services Cupid Routine Chest pain, unspecified type 12/04/2024 9:37 AM CDT Scheduled Orders Name Type Priority Associated Diagnoses Orde r Schedule STRESS TEST Treadmill Cardiac Services Cupid Routine Chest pain, unspecified type 1 Occurrences starting 12/04/2024 until 12/04/2024 documented as of this encounter Visit Diagnoses Diagnosis Chest pain, unspecified type documented in this encounter Care Teams Wind Energy Engineer Relationship Specialty Start Date End Date Dary Soria MD [address] [facility] [place], [facility] [address] [place] [phone] PCP - General Internal Medicine 11/25/24 documented as of this encounter
--- OUTSIDE RECORDS SUMMARY | 2024-12-04 15:01 | XMS_ITS | Clinical Summary ---
Author Organization [facility] Address [facility] [place] [address] Care Team Providers Care Rent Control Office Manager Name Role Phone Dary Soria MD Primary Care Provider [phone]- [phone] Source Comments [facility],non-owned Affiliates and Associated Physician Practices is amultiple site organization consisting of ambulatory clinics and hospital sitesin [place], [place], [place] and [place]. This disclosure is being madepursuant to the Care Everywhere program and may not contain all information available regarding this patient. Last updated 18.[facility] [employer] Allergies Active Allergy Reactions Criticality Noted Date Comments Amoxicillin Palpitations,Unkno wn Low 12/29/2007 Pt states that this shouldn't be in the chart. Erythromycin Palpitations,Unkno wn Low 12/29/2007 Levofloxacin Unknown,Palpitatio ns,Shortness of Breath High 07/23/2018 insomnia Psych reactions Psych reactions Psych reactions Nitrofurantoin Anaphylaxis,Other, Unknown,Shortness of Breath High 03/13/2014 Unable to breath Sulfa Antibiotics Rash Medium 03/13/2014 Sulfacetamide Shortness of Breath High 08/24/2005 Sulfamethoxazole W-Trimethoprim Other,Unknown 12/29/2007 locked finger locked finger Trimethoprim Other,Shortness of Breath High 05/22/2021 Finger joints become stuck in place Finger joints become stuck in place Finger joints become stuck in place Finger joints become stuck in place Finger joints become stuck in place Finger joints become stuck in place Medications * Be aware that medications may not be up to date on this document. Alwaysverify current medications with the patient. Medication Sig Dispensed Refills Start Date End Date Status acetaminophen (Tylenol) 500 MG tablet Take 800 mg by mouth every 6 hours as needed Active alendronate (Fosamax) 70 MG tablet 1 (one) tablet 11/30/2023 Active cephalexin (Keflex) 500 MG capsule TAKE 1 CAPSULE BY MOUTH WITHIN AN HOUR OF INTERCOURSE Active estradiol (Vagifem) 10 MCG vaginal tablet Insert one tablet into vagina twice weekly 11/30/2023 Active fluticasone propionate (Flonase) 50 MCG/ACT nasal spray [place] 1 (one) spray into the nose 2 times daily 06/07/2023 Active loratadine-pseudoeph edrine 12hr (Claritin-D 12 Hour) 5-120 MG tablet Take 1 mg by mouth A ctive Active Problems Problem Noted Date Diagnosed Date Dizziness and giddiness 11/26/2024 Chest pain 11/26/2024 Osteoarthritis 11/26/2024 Encounters Date Type Department Care Team Description 12/04/2024 8:30 AM CDT Hospital Encounter [facility] [address] [place] [address], [address] [address] Cristian Palacios MD 12/04/2024 8:30 AM CDT Hospital Encounter [facility] [address] [place] [address], [address] [address] Cristian Palacios MD 11/26/2024 9:30 AM CDT Office Visit [facility] Heart [facility] Vascular [address] [place] [address] Cristian Palacios MD Chest pain, unspecified type (Primary Dx); Dizziness and giddiness; Osteoarthritis, unspecified osteoarthritis type, unspecified site; Dyslipidemia; Overweight; Abnormal ECG 11/24/2024 Telephone [facility] Care [address] [place] [address] [address] [place] [address] Alec keller [facility] Heart Scheduling from Last 3 Months Social History Tobacco Use Types Packs/Day Years Used Date Smoking Tobacco: Never Passive Smoke Exposure: Never Smokeless Tobacco: Never Tobacco Cessation:Counseling Given: No Sex and Gender Information Value Date Recorded Sex Assigned at Not on file Gender Identity Not on file Sexual Orientation Not on file Last Filed Vital Signs Vital Sign Reading Time Taken Comments Blood Pressure 117/75 12/04/2024 9:12 AM CDT Pulse 52 12/04/2024 9:12 AM CDT Temperature 37.2 C (98.9 F) 11/26/2024 10:00 AM CDT Respiratory Rate - - Oxygen Saturation - - Inhaled Oxygen Concentration - - Weight 79.3 kg (174 lb 12.8 oz) 025 10:00 AM CDT Height 170.2 cm (5' 7 ) 11/26/2024 10:0 0 AM CDT Body Mass Index 27.38 11/26/2024 10:00 AM CDT Plan of Treatment Upcoming Encounters Date Type Department Care Team (Late st Contact Info) Description 04/29/2025 11:30 AM CDT Office Visit [facility] Health Heart & Vascular Care [address] [facility] [address] [place] [address] Cristian Palacios MD [address] [place] [address] [address] [place] [address] Health Maintenance Due Date Last Done Comments COLOGUARD (AGES 45-75) - COL ON CA SCREENING 1965 COLON MONITORING 1964 COLONOSCOPY - COLON CA SCREENING 1964 CT COLONOGRAPHY - COLON CA SCREENING 1965 Colorectal Cancer Screening 1965 FIT - COLON CA SCREENING 1964 FLEX SIG - COLON CA SCREENING 1964 LIPID TESTING 1965 PAP SMEAR 1964 HIV SCREENING 1979 HEPATITIS C SCREENING 04/07/1982 DTAP/TDAP/TD VACCINES (1 - Tdap) 1983 PNEUMOCOCCAL VACCINE 50+ (1 of 1 - PCV) 2014 ZOSTER VACCINE (1 of 2) 2014 COVID-19 VACCINE ( - 2023-2 5 season) 2024 DEPRESSION SCREENING 08/27/2024 SCREENING FOR DIABETES 11/26/2024 INFLUENZA VACCINE (Season Ended) 2025 06/08/2020 MAMMOGRAM 06/26/2026 06/26/2024, 06/20/2023, 05/09/2022 Respiratory Syncytial Virus (RSV) Vaccine Pt: or over 60 yrs (1 - 1-dose 75+ series) 2039 HEPATITIS B VACCINE Aged Out No longe r eligible based on patient's age to complete this topic HIB VACCINE Aged Out No longer eligi ble based on patient's age to complete this topic HPV VACCINE Aged Out No longer eligi ble based on patient's age to complete this topic MENINGOCOCCAL (Group B) VACCINE SHARED DECISION-MAKING Aged Out No longer eligible based on patient's age to complete this topic MENINGOCOCCAL GROUPS A/C/Y/W VACCINE Aged Out No longer eligible b ased on patient's age to complete this topic Procedures Procedure Name Priority Date/Time Associated Diagnosis Comments EKG 12-LEAD Routine 11/26/2024 10:03 AM CDT Dizziness and giddiness from Last 3 Months Results * EKG 12-LEAD (11/26/2024 10:03 AM CDT) Ventricular Rate 64 BPM [facility] Atrial Rate 64 BPM [facility] P-R Interval 146 ms [facility] QRS Duration ms 96 ms [facility] Q-T Interval ms 366 ms [facility] QTC Calculation (Bezet) 377 ms [facility] Calculated P [place] 54 degrees [facility] Calculated R [place] -43 degrees [facility] Calculated T [place] 4 degrees [facility] Interpretation EKG NORMAL SINUS RHYTHM LEFT AXIS DEVIATION LOW VOLTAGE QRS POOR R WAVE PROGRESSION NONSPECIFIC ST AND T WAVE ABNORMALITY ABNORMAL ECG Confirmed by Cristian Palacios MD ([id number]) on 11/26/2024 12:51:02 PM [facility] 11/26/2024 10:0 3 AM CDT 11/26/2024 12:51 PM CDT Cristian Palacios MD ECG ORDERABLES [facility] MUSE from Last 3 Months Care Teams Rent Control Office Manager Relationship Specialty Start Date End Date Dary Soria MD [address] [address] PCP - General Internal Medicine 11/25/24
--- OUTSIDE RECORDS SUMMARY | 2024-12-04 15:01 | XMS_ITS | Referral Summary ---
Author Organization [facility] Address [address] [place] [address] Phone Care Team Providers Care Casino Attendant Name Role Phone Angeline Sawyer MD Unavailable [phone] Dary Soria MD Primary Care Provider Encounters Date Type Department Care Team Description 12/04/[address] [facility] ENT [address] [place] [address] [place] [address] Erin Rondon MS 12/03/2024 Orders Only [facility] Otolaryngology [address], [address] [place] [address] Abby Chew RN Dizziness and giddiness (Primary Dx) 12/02/2024 11:00 AM CDT Office Visit [facility] Ophthalmology [address] 2[address], [address] [place] [address] Manolo Garcia, OD Hordeolum internum of right upper eyelid (Primary Dx); Age-related nuclear cataract of both eyes 12/02/2024 Telephone [facility] Ophthalmology [address] [place] [address] Dion Pinto MD new symptoms 12/01/2024 1:00 PM CDT Procedure visit [facility] Otolaryngology [address] [place] [address] [facility] 11th [place] [address] [place] [address] Colleen Patel Au.D. 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 11/30/2024 4:00 PM CDT Office Visit [facility] Care at [address] [address] Monika Angel, ANDREW Hordeolum internum of right upper eyelid (Primary Dx); Contusion of right great toe without damage to nail, initial encounter 11/10/2024 9:00 AM CDT Procedure visit [facility] ENT [address] [place] [address] Office [address] [place] [address] Cody Ho MD Globus sensation (Primary Dx); Chronic throat clearing; Cervicalgia 10/09/2024 Orders Only [facility] Otolaryngology [address] [place] [address], [address] [place] [address] Romelia Salcedo RMA 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 (Primary Dx) 10/07/2024 4:25 PM COP BREAKER - 10/07/2024 11:59 PM COP BREAKER Hospital Encounter [facility] [address] [place] [address] 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 Discharge Disposition: Discharge to home or self care 09/25/2024 1:00 PM COP BREAKER Office Visit [facility] ENT [address] [place] [address] Office [facility] [address] [place] [address] Marifer Gonzalez MD 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 (Primary Dx) 09/08/2024 Orders Only [facility] ENT [address] [place] [address] Office [facility] [address] [place] [phone] Cody Ho MD Globus sensation (Primary Dx) 09/08/2024 1:20 PM COP BREAKER Procedure visit [facility] ENT [address] Medical Office Building [address] [place] [phone] Cody Ho MD Globus sensation (Primary Dx); Chronic throat clearing from Last 3 Months Allergies Active Allergy Reactions Criticality Noted Date [...] 05/2024 - Pap: UTD 10/2021, repeat per Operator/Assistant Foreman Immunizations - Influenza: Recommend annually - Td/Tdap: UTD 07/2021, repeat 07/2031 - PCV20: Discuss at 64 - Shingles: UTD x 2 2020 - COVID: Recommended Assessment & Plan (10/23/2023 12:43 PM COP BREAKER): General - HbA1c: 5.4% 03/2023, repeat annually - Lipid panel: LDL 127 03/2023, repeat annually - ASCVD score: 2.2% low risk - DEXA scan: UTD 04/2022, repeat 04/2024 Cancer - Colonoscopy: UTD 03/2022, repeat 03/2027 - Mammogram: UTD 05/2023, repeat 05/2024 - Pap: UTD 10/2021, repeat per Operator/Assistant Foreman Immunizations - Influenza: Recommended - Td/Tdap: UTD 07/2021, repeat 07/2031 - PCV20: Discuss at 64 - Shingles: UTD x 2 2020 - COVID: Recommended Primary osteoarthritis involving multiple joints 10/23/2023 Assessment & Plan (04/21/2024 3:17 PM CDT): Considering R knee replacement. Assessment & Plan (10/23/2023 12:43 PM COP BREAKER): Chronic, does use NSAIDs occasionally. Discussed risks, benefits, and alternatives. Prediabetes 08/04/2022 Assessment & Plan (04/21/2024 3:16 PM CDT): A1c normal on last check. Anxiety 08/04/2022 Assessment & Plan (04/21/2024 3:16 PM CDT): Increasing anxiety lately about memory and health. Reassurance provided today. Consider SSRI in future. Assessment & Plan (08/04/2022 6:18 PM COP BREAKER): Large amount of life stressors Overwhelmed Discussed [...] regimen Assessment & Plan (10/23/2023 12:41 PM COP BREAKER): Continues on Fosamax 70 mg daily. - Continue current regimen Assessment & Plan (08/04/2022 6:22 PM COP BREAKER): Noted on Dexa 2021 Fosamax Age-related nuclear [...] sensation. 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 [...] BID Assessment & Plan (10/23/2023 12:41 PM COP BREAKER): See above, follows with Dr. Shrestha. - Continue pantoprazole 40 mg BID Assessment & Plan (08/04/2022 6:23 PM COP BREAKER): F/b GI Zohaib Chery. , reviewed note 09/2021: H. Pylori. Treated with Amoxicilin. clarithromycin and proton inhibitor initially Plan metronidazole 500mg four times daily. Doxycyclin 100mg two times daily. Peptobismol 2 labs four times daily. Jamie pantoprazole to 40mg twee daily. Take all of these medications for two weeks. Choking sensation. ? Relation to reflux. Change pantoprazole to 40mg twice baeza before breakfast and supper care home Avoid eating 4 hours before lying down. [...] cancer. Assessment & Plan (10/03/2021 11:04 AM COP BREAKER): Followed by her PCP. Chronic and stable. She will continue taking her Pepcid for acid reflux control. Assessment & Plan (09/05/2021 9:54 AM COP BREAKER): Followed by her PCP and controlled on her Pepcid. Recommend that she continue her Pepcid. Scoliosis of thoracic spine 06/30/2021 Overview (08/04/2022): F/b Dr. Ramey Wanting to start PT for her back Assessment & Plan (04/21/2024 3:17 PM CDT): Stable. Assessment & Plan (08/04/2022 6:20 PM COP BREAKER): F/b Dr. Ramey Wanting to start PT for her back Environmental allergies 06/30/2021 Assessment & Plan (04/21/2024 3:16 PM CDT): Stable. Resolved Problems Problem Noted Date Diagnosed Date Resolved Date Folliculitis 10/23/2023 04/21/2024 Assessment & Plan (10/23/2023 12:42 PM COP BREAKER): Area of purple-red discoloration at site of [...] no interactions H. pylori infection 04/18/2022 10/23/19 24 Overview (08/04/2022): H. pylori infection which was treated in 2019 with amoxicillin, clarithromycin, PPI. However, subsequent breath test was positive. There were plans for Pylera, but the patient never completed the therapy as the Covid pandemic started. Assessment & Plan (08/04/2022 6:24 PM COP BREAKER): H. pylori infection which was treated in 2019 with amoxicillin, clarithromycin, PPI. However, subsequent breath test was positive. There were plans for Pylera, but the patient never completed the therapy as the Covid pandemic started. Health care maintenance 04/18/202209/28 Overview (08/04/2022): Images from the original note were not included. 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 Follow up 3-4 weeks Warning [...] (08/03/2021): Added automatically from request for surgery [id number] Arthritis 06/30/2021 10/23/2023 Assessment & Plan (10/03/2021 11:04 AM COP BREAKER): Followed by her PCP. Chronic and stable. She is controlled with her Tylenol and Voltaren gel and recommended that she continue this as needed. Assessment & Plan (09/05/2021 9:55 AM COP BREAKER): Followed by her PCP and controlled with Tylenol and Voltaren gel. Recommend that she continue the Tylenol and Voltaren gel for symptomatic relief of arthritis. Chronic UTI 06/30/2021 04/23/2023 Varicose veins of left lower extremity with pain 06/30/2021 10/23/2023 Assessment & Plan (10/03/2021 11:03 AM COP BREAKER): Patient does not have any varicose veins [...] needed. Assessment & Plan (09/05/2021 9:56 AM COP BREAKER): Patient has spider veins on her bilateral [...] all this with the patient she understands. Immunizations Immunization Administration Dates Next Due Influenza, Quadrivalent, Rec ombinant, Egg Free, Preservative Free, Intramuscular 06/08/2020 Influenza, Unspecified 10/23/2023(Deferred: Mima ent Refused) Tdap 08/03/2021 ZOSTER Recombinant 04/15/2021,01/15/2021 Social History Tobacco Use Types Packs/Day Years [...] PM CDT Sexual Orientation Not on file Last Filed [...] cm (5' 7 ) 07/08/2024 2:13 PM COP BREAKER Body Mass Index 26.63 07/08/2024 2:13 PM COP BREAKER Plan of Treatment Not on file Procedures Procedure Name Priority Date/Time Associated Diagnosis Comments CT TEMPORAL BONES WO CONTRAST Schedule Routine, Read Routine (OP Routine) 10/07/2024 4:41 PM COP BREAKER 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 DIAGNOSTIC MAMMOGRAM BILATERAL W JAH Schedule Routine, Read Routine (OP Routine) 06/26/2024 10:33 AM CDT Mammogram abnormal HM COLONOSCOPY Routine 04/14/2022 PAP AND HIGH RISK HPV, REFLEX TO GENOTYPING Routine 11/22/2021 12:45 PM CDT Screening for malignant neoplasm of the cervix Screening for HPV (human papillomavirus) HEPATITIS C ANTIBODY Routine 08/03/2021 11:57 AM COP BREAKER Need for hepatitis C screening test from Last 3 Months or Most Recently Relevant to Health Maintenance Results * CT Temporal Bones WO Contrast (10/07/2024 4:41 PM COP BREAKER) Anatomical Region Laterality Modality Head and Neck N/A Computed Tomogra phy 10/07/2024 5:04 PM COP BREAKER Impressions 10/07/2024 5:14 PM COP BREAKER 1. Dehiscence of the arcuate eminence overlying [...] Denisse Loredo MD Narrative 10/07/2024 5:14 PM COP BREAKER EXAMINATION: CT of the temporal bones without [...] Allie Atkins MD on 07/02/2024 9:41 AM COP BREAKER ADDENDUM: THE MAMMOGRAPHIC FINDINGS ARE DESCRIBED BELOW. [...] Allie Atkins M.D. LD: LILLIANA Report ID: [id number] Reading Location: [facility] Angeline Sawyer MD IMG MAMMO PROCEDURES Edited Result - Final * (ABNORMAL) COLONOSCOPY (04/14/2022) Scribed Colonoscopy Abnormal Generic External Data Provider [facility] Final Result * Pap and High Risk HPV, reflex to Genotyping (11/22/2021 12:45 PM CDT) Thin prep (Pap test) 11/22/2021 12:45 PM CDT 11/24/2021 3:29 PM CDT Narrative PATHOLOGY [facility] - 11/29/2021 3:09 PM CDT EPIC results best viewed via link to PDF [address] [address] Tele: Merlyn Morales MD - Bean Sprout Laborer CYTOLOGY REPORT Note to Patients: This report [...] details. Patient Name: SUYAPA DE LEON Address: [address] [place] [address] Gender: F : 1965 (Age: 56) Service: Location: [facility] #: [id number] Patient Type: [facility] SPECIMEN Taken: 11/22/2021 Reported: 11/29/2021 Physician(s): Angeline Sawyer MD FINAL DIAGNOSIS: Specimen Type: - ThinPrep Pap and HPV w/ reflex Genotyping Statement of Specimen Adequacy: Source: Cervical/Endocervical - Satisfactory for interpretation - Endocervical/Transformation zone component absent or insufficient - Case screened using computer assisted imaging technology and manually re- screened by a leach tank tender. General Categorization: - Negative for intraepithelial lesion or malignancy [facility] [place]/11/29/2021 15:09 CHAKA Vazquez (ASCP) CHAKA Pelayo (ASCP) [...] has been rescreened in accordance with the [facility] Laboratory Quality Management Program. REPORT IMAGES AND/OR [...] Angeline Sawyer MD LAB CYTOLOGY ORDERABLES Rhonda l Result Performing Organization Address [facility]/ZIP Co de Phone Number PATHOLOGY [facility] Laboratory Receiving [address] [place] [address] * Hepatitis C antibody (08/03/2021 11:57 AM COP BREAKER) Hep C Ab Nonreactive Nonreactive [facility] Comment: Interpretive Data Nonreactive: Antibodies to HCV [...] on 2019. Blood 08/03/2021 11:5 7 AM COP BREAKER 08/03/2021 4:34 PM COP BREAKER Ana Carrillo DNP LAB MICROBIOLOGY - GENERAL O RDERABLES Final Result Performing Organization Address [facility] Co de Phone Number [facility] [address] Department [place] [address] from Last 3 Months or Most Recently Relevant to Health Maintenance Insurance [facility] CLAIMS [facility] CLAIMS Care Teams Casino Attendant Relationship Specialty Start Date End Date Dary Soria MD [address] [place] [address] PCP - General Internal Medicine 04/19/23 Angeline Sawyer MD [address] [place] [address] Consulting Physician Obstetrics and Gynecology 05/09/22
[2024-12-04 15:10] LABS: Alanine Aminotransferase 40 U/L (6-35); Aspartate Amino Transferase 45 U/L (14-36)
== END 2024-12-04 14:24 | disposition home or self-care (01) ==
LOC: ANHLAB 14:27
PROVIDERS: Visit Provider Podiatrist Foot & Ankle Surgery
DX: B35.1 Tinea unguium (principal)
CPT/HCPCS: 36415; 84450; 84460

== ENCOUNTER 2024-12-24 10:00 | Outpatient (CLI) | payer OTHER, SELFPAY ==
--- NOTE | ~2024-12-24 | XR_ITS ---
Right Knee Technique: AP, lateral, and sunrise views were obtained. Clinical History: Arthritis Findings: No fracture or dislocation is seen. There is lateral compartment narrowing. Mild spurring p resent, most prominent at the lateral joint line. Soft tissues are unremarkable. No joint effusion is seen. 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 Reviewed, dictated and finalized at location . 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
--- OUTSIDE RECORDS SUMMARY | 2024-12-24 11:05 | XMS_ITS | Clinical Summary ---
Author Organization [facility] Address [address] [address] Phone Care Team Providers Care Cardiopulmonary Supervisor Name Role Phone Angeline Sawyer MD Unavailable [phone] Dary Soria MD Primary Care Provider Allergies [...] (Sulfonamide Antibiotics) Rash,Shortness of breath High 08/24/2005 Sulfamethoxazole-Trimeth oprim Unknown,Other (See comments) 12/29/2007 locked finger locked finger Trimethoprim Other (See comments),Shortness of breath High 06/30/2021 Finger joints become stuck in place Finger joints become stuck in place Medications azelaic acid 15 % foam Active acetaminophen (TYLENOL) 500 mg tablet Take 800 mg by mouth every 6 (six) hours as needed for pain Active fluticasone propionate (FLONASE) 50 mcg/actuation nasal spray Administer 2 sprays into each nostril daily 16 g 5 09/08/19 22 Active loratadine-pseud oephedrine (Claritin-D 12 Hour) 5-120 mg tablet extended release 12 hr Take 1 mg by mouth Active estradioL (VAGIFEM) 10 mcg tabletIndication s:Postmenopausal atrophic vaginitis Insert one tablet into vagina twice weekly 24 tablet 3 12/06/19 25 Active alendronate (FOSAMAX) 70 mg tabletIndication s:Age-related osteoporosis without current pathological fracture Take 1 tablet (70 mg total) by mouth every 7 days Take in the morning with a full glass of water, on an empty stomach, and do not take anything else by mouth or lie down for the next 30 min. 12 tablet 3 12/06/19 25 025 Active terbinafine (LamiSIL) 250 mg tablet TAKE 1 TABLET BY MOUTH EVERY DAY FOR 2 WEEKS OUT OF EACH MONTH 12/09/19 25 Active doxycycline (VIBRAMYCIN) 100 mg capsuleIndicatio ns:Hordeolum internum of right upper eyelid Take 1 tablet/capsule (100 mg total) by mouth 2 (two) times a day 60 tablet/capsu le 1 12/19/[address] (PROTONIX) 20 mg EC tablet Take 1 tablet (20 mg total) by mouth 2 (two) times a day 84 tablet 09/08/19 22 025 Discontinu ed(Patient Reported) ciprofloxacin (CIPRO) 500 mg tablet Take 1 tablet (500 mg total) by mouth as needed 02/01/20 23 025 Discontinu ed(Therapy completed) cephalexin (KEFLEX) 500 mg capsule 11/27/19 24 025 Discontinu ed(Therapy completed) alendronate (FOSAMAX) 70 mg tabletIndication s:Age-related osteoporosis without current pathological fracture Take 1 tablet (70 mg total) by mouth every 7 days Take in the morning with a full glass of water, on an empty stomach, and do not take anything else by mouth or lie down for the next 30 min. 12 tablet 3 11/30/19 24 025 Discontinu ed(Reorder ) estradioL (VAGIFEM) 10 mcg tabletIndication s:Postmenopausal atrophic vaginitis Insert one tablet into vagina twice weekly 24 tablet 3 11/30/19 24 025 Discontinu ed(Reorder ) naproxen (NAPROSYN) 500 mg tablet Take 1 tablet (500 mg total) by mouth 2 (two) times a day 02/16/20 24 025 Discontinu ed(Patient Reported) erythromycin (ILOTYCIN) ophthalmic ointmentIndicati ons:Hordeolum internum of right upper eyelid Apply to right eye 4 (four) times a day for 7 days 3.5 g 12/01/19 25 025 Discontinu ed(Patient Reported) cephalexin (KEFLEX) 500 mg capsuleIndicatio ns:Hordeolum internum of right upper eyelid Take 1 capsule (500 mg total) by mouth 2 (two) times a day for 10 days 20 capsule 12/03/19 25 025 Active Problems Problem Noted Date Diagnosed Date Hordeolum internum of right upper eyelid 025 Assessment & Plan (12/18/2024 12:42 PM CDT): Improving but not resolved, now with amor Educated and reassured patient of findings Continue heat Start doxy 100mg BID PO x 30 days If no resolution or worsening s/s will refer to plastics PRN with concerns Assessment & Plan (12/02/2024 11:17 AM CDT): Has been using erythromycin ducth; has erytrhomycin as allergy on chart Recommend to stop dutch at this time Has taken keflex several times in past Will start 500mg PO BID x 10 days If no improvement or worsening of s/s RTC; alternative would be doxycycline (allergic to trimetorhprim and levofloxacin) Has visit scheduled with Dr. 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 Immunizations - Influenza: Recommend annually - Td/Tdap: UTD 07/2021, repeat 07/2031 - PCV20: Discuss at 64 - Shingles: UTD x 2 2020 - COVID: Recommended Assessment & Plan (10/23/2023 12:43 PM [employer]): General - HbA1c: 5.4% 03/2023, repeat annually - Lipid panel: LDL 127 03/2023, repeat annually - ASCVD score: 2.2% low risk - DEXA scan: UTD 04/2022, repeat 04/2024 Cancer - Colonoscopy: UTD 03/2022, repeat 03/2027 - Mammogram: UTD 05/2023, repeat 05/2024 - Pap: UTD 10/2021, repeat per [employer] Leader Immunizations - Influenza: Recommended - Td/Tdap: UTD 07/2021, repeat 07/2031 - PCV20: Discuss at 64 - Shingles: UTD x 2 2020 - COVID: Recommended Primary osteoarthritis involving multiple joints 10/23/2023 Assessment & Plan (04/21/2024 3:17 PM CDT): Considering R knee replacement. Assessment & Plan (10/23/2023 12:43 PM [employer]): Chronic, does use NSAIDs occasionally. Discussed risks, benefits, and alternatives. Prediabetes 08/04/2022 Assessment & Plan (04/21/2024 3:16 PM CDT): A1c normal on last check. Anxiety 08/04/2022 Assessment & Plan (04/21/2024 3:16 PM CDT): Increasing anxiety lately about memory and health. Reassurance provided today. Consider SSRI in future. Assessment & Plan (08/04/2022 6:18 PM [employer]): Large amount of life stressors Overwhelmed Discussed [...] regimen Assessment & Plan (10/23/2023 12:41 PM [employer]): Continues on Fosamax 70 mg daily. - Continue current regimen Assessment & Plan (08/04/2022 6:22 PM [employer]): Noted on Dexa 2021 Fosamax Age-related nuclear [...] sensation. Assessment & Plan (10/23/2023 12:41 PM [employer]): Follows with ENT and GI, has been [...] disease 06/30/2021 Overview (08/04/2022): F/b GI Zohaib Chrey. , 09/2021: H. Pylori. Treated with Amoxicilin. clarithromycin and proton inhibitor initially Plan metronidazole 500mg four times daily. Doxycyclin 100mg two times daily. Peptobismol 2 labs four times daily. Jamie pantoprazole to 40mg twee daily. Take all of these medications for two weeks. Choking sensation. ? Relation to reflux. 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 [...] BID Assessment & Plan (10/23/2023 12:41 PM [employer]): See above, follows with Dr. Shrestha. - Continue pantoprazole 40 mg BID Assessment & Plan (08/04/2022 6:23 PM [employer]): F/b GI Zohaib Chery. 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 [...] cancer. Assessment & Plan (10/03/2021 11:04 AM [employer]): Followed by her PCP. Chronic and stable. She will continue taking her Pepcid for acid reflux control. Assessment & Plan (09/05/2021 9:54 AM [employer]): Followed by her PCP and controlled on her Pepcid. Recommend that she continue her Pepcid. Scoliosis of thoracic spine 06/30/2021 Overview (08/04/2022): F/b Dr. Ramey Wanting to start PT for her back Assessment & Plan (04/21/2024 3:17 PM CDT): Stable. Assessment & Plan (08/04/2022 6:20 PM [employer]): F/b Dr. Ramey Wanting to start PT for her back Environmental allergies 06/30/2021 Assessment & Plan (04/21/2024 3:16 PM CDT): Stable. Resolved Problems Problem Noted Date Diagnosed Date Resolved Date Folliculitis 10/23/2023 04/21/2024 Assessment & Plan (10/23/2023 12:42 PM [employer]): Area of purple-red discoloration at site of [...] started. Assessment & Plan (08/04/2022 6:24 PM [employer]): H. pylori infection which was treated in 2019 with amoxicillin, clarithromycin, PPI. However, subsequent breath test was positive. There were plans for Pylera, but the patient never completed the therapy as the Covid pandemic started. Health care maintenance 04/18/202209/28 Overview (08/04/2022): Images from the original note were not included. 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 Follow up 3-4 weeks Warning [...] (08/03/2021): Added automatically from request for surgery [id number] Arthritis 06/30/2021 10/23/2023 Assessment & Plan (10/03/2021 11:04 AM [employer]): Followed by her PCP. Chronic and stable. She is controlled with her Tylenol and Voltaren gel and recommended that she continue this as needed. Assessment & Plan (09/05/2021 9:55 AM [employer]): Followed by her PCP and controlled with Tylenol and Voltaren gel. Recommend that she continue the Tylenol and Voltaren gel for symptomatic relief of arthritis. Chronic UTI 06/30/2021 04/23/2023 Varicose veins of left lower extremity with pain 06/30/2021 10/23/2023 Assessment & Plan (10/03/2021 11:03 AM [employer]): Patient does not have any varicose veins [...] needed. Assessment & Plan (09/05/2021 9:56 AM [employer]): Patient has spider veins on her bilateral [...] Encounters Date Type Department Care Team Description 12/18/2024 12:30 PM CDT Office Visit [facility] Ophthalmology [address] 2nd Floor, [address] [place] [address] Manolo Garcia, OD Hordeolum internum of right upper eyelid (Primary Dx) 12/18/2024 11:40 AM CDT Office Visit [facility] Otolaryngology 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 [facility] [address] [facility], [address] [place] [phone] Conductive hearing loss of left ear with unrestricted hearing of right ear (Primary Dx) 12/18/2024 Telephone [facility] Ophthalmology [address] [facility] [address], [address] [place] [phone] Manolo Garcia, OD 12/16/2024 1:00 PM CDT Procedure visit [facility] Otolaryngology [address] [place] [address] 11th [place] [address] [place] [phone] Colleen Patel Au.D. Dizziness and giddiness 12/08/2024 Results Follow-Up [facility] [address] [place] [address] [place] [address] Angeline Sawyer MD 12/05/2024 3:44 PM CDT - 12/05/2024 11:59 PM CDT Hospital Encounter [facility] [address] [place] [phone] Screening for malignant neoplasm of the cervix; Screening for HPV (human papillomavirus) Discharge Disposition: Discharge to home or self care 12/05/2024 10:30 AM CDT Office Visit [facility] [address] [facility] [address], [place] [phone] Angeline Sawyer MD Encounter for well woman exam with routine gynecological exam (Primary Dx); Screening for malignant neoplasm of the cervix; Screening for HPV (human papillomavirus); Postmenopausal atrophic vaginitis; Age-related osteoporosis without current pathological fracture 12/04/2024 Telephone [facility] ENT [address] [facility] [address]th [place] [address] [place] [address] Alcon ErinMS maryam 12/03/2024 Orders Only [facility] Otolaryngology [address] [facility], [address] [place] [address] Abby Chew RN Dizziness and giddiness (Primary Dx) 12/02/2024 11:00 AM CDT Office Visit [facility] Ophthalmology [address] [facility] 2[address] Floor, [address] [place] [address] Manolo Garcia, OD Hordeolum internum of right upper eyelid (Primary Dx); Age-related nuclear cataract of both eyes 12/02/2024 Telephone [facility] Ophthalmology [address] [place] [address] Dion Pinto MD new symptoms 12/01/2024 1:00 PM CDT Procedure visit [facility] Otolaryngology [address] [facility] [address]th [place] [address] [place] [address] Colleen Patel Au.D. 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 11/30/2024 4:00 PM CDT Office Visit [facility] at [address] [phone] Monika Angel SUR[employer] Hordeolum internum of right upper eyelid (Primary Dx); Contusion of right great toe without damage to nail, initial encounter 11/10/2024 9:00 AM CDT Procedure visit [facility] ENT [address] [facility] [address] [place] [address] Cody Ho MD Globus sensation (Primary Dx); Chronic throat clearing; Cervicalgia 10/09/2024 Orders Only [facility] Otolaryngology 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 (Primary Dx) 10/07/2024 4:25 PM [employer] - 10/07/2024 11:59 PM [employer] Hospital Encounter [facility] [address] [place] [address] 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 Discharge Disposition: Discharge to home or self care 09/25/2024 1:00 PM [employer] Office Visit [facility] [address] [facility] [address] [place] [phone] Marifer Gonzalez MD 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 (Primary Dx) from Last 3 Months Immunizations [...] Cataracts Father Siva Holden Glaucoma Father Siva FCindy Holden Hearing loss Father iSva Holden Heart attack Father Siva Holden Snoring Father Siva Holden Alcohol abuse Maternal Grandfather Ortega Cataracts Maternal Grandmother Glaucoma Maternal Grandmother Arthritis Mother Sofia Holden Cataracts Mother Sofia Holden Clotting disorder Mother Sofia Holden Glaucoma Mother Sofia Holden Obesity Mother Sofia Holden Osteoarthritis Mother Sofia Holden Parkinsonism Mother Sofia Holden ADD / ADHD Son Siva danielAltavilla defects Son Siva danielAltavillbrian Breast cancer Neg Hx Colon cancer Neg Hx Ovarian cancer Neg Hx Uterine cancer Neg Hx Relation Name Status Comments Brother 1 Supa Holden Brother 2 Joe Holden Father Siva Holden Maternal Grandfather Ortega Maternal Grandmother Mother Sofia Holden Son Siva Sands Social History Tobacco Use Types Packs/Day Years [...] Sign Reading Time Taken Comments Blood Pressure 126/72 12/05/2024 10:34 AM CDT Pulse 66 11/30/2024 4:30 PM CDT Temperature 36.4 C (97.5 F) 11/30/2024 4:30 PM CDT Respiratory Rate 20 11/30/2024 4:30 PM CDT Oxygen Saturation 98% 11/30/2024 4:30 PM CDT Inhaled Oxygen Concentration - - Weight 80.7 kg (178 lb) 12/05/2024 10:34 AM CDT Height 170.2 cm (5' 7 ) 12/05/2024 10:34 AM CDT Body Mass Index 27.88 12/05/2024 10:34 AM CDT Plan of Treatment Health Maintenance Due Date Last Done Comments Covid-19 Vaccine ( season) 2024 07/28/2022, 11/30/2021, 06/25/2021, Additional history exists Depression Screening 04/21/2025 04/21/2024, 04/19/2023, 08/04/2022, Additional history exists Influenza Vaccine (Season Ended) 2025 06/08/2020 Breast Cancer Screening-Mammogram 06/26/2025 06/26/2024, 06/20/2023, 05/09/2022 Regular Well Visit/Exam 18-64 12/05/2025 12/05/2024, 04/21/2024, 11/30/2023, Additional history exists Colon Cancer Screening-Colonoscopy 04/14/2027 04/14/2022, 04/14/2022 Cervical Cancer Screening 12/05/20292024, 12/05/2024, 11/22/2021 DTaP/Tdap/Td Vaccine (2 - Td or Tdap) 08/03/2031 08/03/2021 Zoster Vaccine Completed 04/15/2021, 01/15/2021 Hepatitis C Screening Completed 08/03/2021 Hepatitis B Screening Discontinued Pneumococcal vaccine <65 Aged Out No longer eligible based on patient's age to complete this topic Procedures Procedure Name Priority Date/Time Associated Diagnosis Comments AUDBASE RESULTS 12/18/2024 10:59 AM CDT PAP AND HIGH RISK HPV, REFLEX TO GENOTYPING Routine 12/05/2024 1:58 PM CDT Screening for malignant neoplasm of the cervix Screening for HPV (human papillomavirus) THINPREP PROCESSING (MOLECULAR COMPONENT) Routine 12/05/2024 12:00 PM CDT Screening for malignant neoplasm of the cervix Screening for HPV (human papillomavirus) HIGH RISK HPV DNA DETECTION WITH GENOTYPING Routine 12/05/2024 12:00 PM CDT Screening for malignant neoplasm of the cervix Screening for HPV (human papillomavirus) CT TEMPORAL BONES WO CONTRAST Schedule Routine, Read Routine (OP Routine) 10/07/2024 4:41 PM [employer] 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 DIAGNOSTIC MAMMOGRAM BILATERAL W JAH Schedule Routine, Read Routine (OP Routine) 06/26/2024 10:33 AM CDT Mammogram abnormal HM COLONOSCOPY Routine 04/14/2022 HEPATITIS C ANTIBODY Routine 08/03/2021 11:57 AM [employer] Need for hepatitis C screening test from Last 3 Months or Most Recently Relevant to Health Maintenance Results * AudBase Results (12/18/2024 10:59 AM CDT) Provider Scanning AUDIOLOGY SERVICES ORDERABLES Final Result * Pap and High Risk HPV and Genotyping (Cytology Component) (12/05/2024 1:58 PM CDT) Thin prep (Pap test) 12/05/2024 1:58 PM CDT 12/08/2024 8:30 AM CDT Narrative PATHOLOGY [facility] - 12/10/2024 8:44 AM CDT EPIC results best viewed via link to PDF [place] [id number] [facility], [place], [place] [address] Tele: Merlyn Morales MD - Psychologist Clinical CYTOLOGY REPORT Note to Patients: This report [...] and explain the details. Patient Name: SUYAPA MACIAS Address: [address] [place] [address] Gender: F : 1965 (Age: 59) Service: Location: N : [id number] Hospital #: [id number] Patient Type: [facility] SPECIMEN Taken: 12/05/2024 Reported: 12/10/2024 Physician(s): Angeline Sawyer MD FINAL DIAGNOSIS: SOURCE OF SPECIMEN - ThinPrep Pap and HPV w/ reflex Genotyping: STATEMENT OF ADEQUACY Source: Cervical/Endocervical - Satisfactory for interpretation - Endocervical /Transformation Zone component present - Case screened using computer assisted imaging technology GENERAL CATEGORIZATION: - Negative for intraepithelial lesion or malignancy cad/12/10/2024 08:Sarah Sage (ASCP) Mary Plascencia M.S., CHAKA (ASCP)Report Reviewed and Electronically Signed By Mary Plascencia M.S., CHAKA (ASCP)Clerical Data Follow A; G0145 DIAGNOSIS COMMENT: Ancillary Testing: HPV Genotype 16 - Not Detected Reference Range: Not Detected HPV Genotype 18 - Not Detected Reference Range: Not Detected HPV High Risk Group (31, 33, 35, 39, 45, 51, 52, 56, 58, 59, 66 and 68) - Not Detected Reference Range: Not Detected This test was performed using the FELI 4800 REPORT IMAGES AND/OR SCANNED DOCUMENTS ONLY VIEWABLE [...] recommended by your physician or nurse practitioner. Frozen section, operating room consultation, gross examination and dissection, and case sign out may have been performed in part or completely in the following laboratories: [facility], [facility] [place] [address] [facility], [address] [place] [address]. Angeline Sawyer MD LAB CYTOLOGY ORDERABLES Rhonda l Result PATHOLOGY [facility] Laboratory Receiving [address] [place], [place] [id number] * ThinPrep processing (Molecular component) (12/05/2024 12:00 PM CDT) [facility] ThinPrep processing (Molecular component) Specimen received for processing. Endocervical 12/05/2024 12:0 0 PM CDT 12/05/2024 4:49 PM CDT Angeline Sawyer MD LAB BODY FLUIDS AND STOOLS O RDERABLES Final Result Performing Organization Address City/[facility]/ZIP Co de Phone Number [facility] [address] [place] [address] * High Risk HPV DNA Detection with Genotyping (Molecular component) (12/05/2024 12:00 PM CDT) Pathologist [facility] HPV HR 16 Not Detected Not Detected HPV HR 18 Not Detected Not Detected [facility] HPV HR Non 16/18 Not Detected Not Detected [facility] Comment: Interpretive Data Nucleic acid amplification for detection of high-risk Human Papilloma virus (HPV) is performed by the Arelis Feli 4800 HPV test, which specifically detects high-risk HPV-16, 18, 31, 33, 35, 39, 45, 51, 52, 56, 58, 59, 66, and 68 genotypes. This assay has been approved by the [place] Food and Drug Administration for detection of HPV in cervical specimens collected by a physician using an endocervical brush/spatula or cervical broom and placed in the ThinPrep Pap Test PreservCyt collection containers. The performance characteristics of this test have been verified by the [facility]. Correlate with separately reported cytology results, as applicable. Interpretive data last revised 23 Endocervical 12/05/2024 12:0 0 PM CDT 12/05/2024 4:49 PM CDT Narrative [facility] - 12/08/2024 6:06 PM CDT Clinical history and diagnosis->none Number of vials->1 Testing type->Screening Last menstrual period (date if known)->none Previous positive HPV history?->No Previous negative PAP?->Yes Angeline Sawyer MD LAB BODY FLUIDS AND STOOLS O RDERABLES Final Result [facility] [address] Department [place] [address] * CT Temporal Bones WO Contrast (10/07/2024 4:41 PM [employer]) Anatomical Region Laterality Modality Head and Neck N/A Computed Tomogra phy 10/07/2024 5:04 PM [employer] Impressions 10/07/2024 5:14 PM [employer] 1. 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 2. Thinning of the tegmen tympani and mastoideum bilaterally. Dictated by: Murtaza Castillo M.D. The radiology attending physician has personally reviewed this study, and had reviewed and/or edited this written report and agrees with it. Electronically signed by: MD Tata Gil 10/07/2024 5:14 PM [employer] EXAMINATION: CT of the temporal bones without [...] by: Denisse Loredo MD Marifer Gonzalez MD IM CT PROCEDURES Final Resul t * Diagnostic Mammogram Bilateral W Jah (06/26/2024 10:33 AM CDT) Anatomical Region Laterality Modality Breast Bilateral Mammography 06/26/2024 3:38 PM CDT Addenda Addendum by Allie Atkins MD on 07/02/2024 9:41 AM [employer] ADDENDUM: THE MAMMOGRAPHIC FINDINGS ARE DESCRIBED BELOW. [...] Allie Atkins M.D. LD: LILLIANA Report ID: [id number] Reading Location: [facility] Angeline Sawyer MD IMG MAMMO PROCEDURES Edited Result - Final * (ABNORMAL) HM COLONOSCOPY (04/14/2022) Scribed Colonoscopy Abnormal us Generic External Data Provider HEALTH MAINTENANC E Final Result * Hepatitis C antibody (08/03/2021 11:57 AM [employer]) Hep C Ab Nonreactive Nonreactive [facility] Comment: Interpretive Data Nonreactive: Antibodies to HCV [...] on 2019. Blood 08/03/2021 11:5 7 AM [employer] 08/03/2021 4:34 PM [employer] Ana Carrillo DNP LAB MICROBIOLOGY - GENERAL O RDERABLES Final Result [facility] [address] Department [place] [address] from Last 3 Months or Most Recently Relevant to Health Maintenance Insurance [employer] CLAIMS [employer] Care Teams Cardiopulmonary Supervisor Relationship Specialty Start Date End Date Dary Soria MD [address] [facility] [address] [place], [place] [id number] PCP - General Internal Medicine 04/19/23 Angeline Sawyer MD [address] [facility] [address] [place] [address] Consulting Physician Obstetrics and Gynecology 05/09/22
--- OUTSIDE RECORDS SUMMARY | 2024-12-24 11:05 | XMS_ITS | Referral Summary ---
Author Organization [facility] Address [address] [place] [address] Phone Care Team Providers Care Laborer Construction [employer] Name Role Phone Angeline Sawyer MD Unavailable [phone] Dary Soria MD Primary Care Provider Encounters Date Type Department Care Team Description 12/18/2024 12:30 PM CDT Office Visit [facility] Ophthalmology [address] [place] [address] Manolo Garcia, OD Hordeolum internum of right upper eyelid (Primary Dx) 12/18/2024 Telephone [facility] Ophthalmology [address] [place] [address] Manolo Garcia, OD 12/18/2024 11:00 AM CDT Procedure visit [facility] Otolaryngology 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 Dizziness and giddiness 12/08/2024 Results Follow-Up [facility] [address] [place] [address] [address] [phone] Angeline Sawyer MD 12/05/2024 3:44 PM CDT - 12/05/2024 11:59 PM CDT Hospital Encounter [address] [place] [address] Screening for malignant neoplasm of the cervix; Screening for HPV (human papillomavirus) Discharge Disposition: Discharge to home or self care 12/05/2024 10:30 AM CDT Office Visit [facility] [address] [place] [address] [address] [address] Angeline Sawyer MD Encounter for well woman exam with routine gynecological exam (Primary Dx); Screening for malignant neoplasm of the cervix; Screening for HPV (human papillomavirus); Postmenopausal atrophic vaginitis; Age-related osteoporosis without current pathological fracture 12/04/2024 Telephone [facility]) - [facility] ENT [address] [place] [address] [place] [phone] Alcon Erin, 12/03/2024 Orders Only [facility] Otolaryngology [address], [address] [place] [address] Abby Chew RN Dizziness and giddiness (Primary Dx) 12/02/2024 11:00 AM CDT Office Visit [facility] Ophthalmology [address], [address] [place] [address] Manolo Garcia, OD Hordeolum internum of right upper eyelid (Primary Dx); Age-related nuclear cataract of both eyes 12/02/2024 Telephone [facility] Ophthalmology [address] [place] [address] Dion Pinto MD new symptoms 12/01/2024 1:00 PM CDT Procedure visit [facility] Otolaryngology [address] [place] [address] [place] [address] Colleen Patel Au.D. 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 E[facility] [address] [place] [address] Cody Ho MD Globus sensation (Primary Dx); Chronic throat clearing; Cervicalgia 10/09/2024 Orders Only [facility] Otolaryngology 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 Erythromycin Palpitations,Unknown Low 12/29/2007 Erythromycin Estolate Other (See comments) Low 05/0 11/2007 Hay Fever And Allergy Relief Eye [...] Date Hordeolum internum of right upper eyelid Assessment & Plan (12/18/2024 12:42 PM CDT): Improving but not resolved, now with chalazia Educated and reassured patient of findings Continue [...] 05/2024 - Pap: UTD 10/2021, repeat per Member Service Representative Immunizations - Influenza: Recommend annually - Td/Tdap: UTD 07/2021, repeat 07/2031 - PCV20: Discuss at 64 - Shingles: UTD x 2 2020 - COVID: Recommended Assessment & Plan (10/23/2023 12:43 PM BLACKSMITH APPRENTICE): General - HbA1c: 5.4% 03/2023, repeat annually - Lipid panel: LDL 127 03/2023, repeat annually - ASCVD score: 2.2% low risk - DEXA scan: UTD 04/2022, repeat 04/2024 Cancer - Colonoscopy: UTD 03/2022, repeat 03/2027 - Mammogram: UTD 05/2023, repeat 05/2024 - Pap: UTD 10/2021, repeat per Member Service Representative Immunizations - Influenza: Recommended - Td/Tdap: UTD 07/2021, repeat 07/2031 - PCV20: Discuss at 64 - Shingles: UTD x 2 2020 - COVID: Recommended Primary osteoarthritis involving multiple joints 10/23/2023 Assessment & Plan (04/21/2024 3:17 PM CDT): Considering R knee replacement. Assessment & Plan (10/23/2023 12:43 PM BLACKSMITH APPRENTICE): Chronic, does use NSAIDs occasionally. Discussed risks, benefits, and alternatives. Prediabetes 08/04/2022 Assessment & Plan (04/21/2024 3:16 PM CDT): A1c normal on last check. Anxiety 08/04/2022 Assessment & Plan (04/21/2024 3:16 PM CDT): Increasing anxiety lately about memory and health. Reassurance provided today. Consider SSRI in future. Assessment & Plan (08/04/2022 6:18 PM BLACKSMITH APPRENTICE): Large amount of life stressors Overwhelmed Discussed [...] regimen Assessment & Plan (10/23/2023 12:41 PM BLACKSMITH APPRENTICE): Continues on Fosamax 70 mg daily. - Continue current regimen Assessment & Plan (08/04/2022 6:22 PM BLACKSMITH APPRENTICE): Noted on Dexa 2021 Fosamax Age-related nuclear [...] sensation. Assessment & Plan (10/23/2023 12:41 PM BLACKSMITH APPRENTICE): Follows with ENT and GI, has been [...] 40mg twice baeza before breakfast and supper mcfp Avoid eating 4 hours before lying down. [...] BID Assessment & Plan (10/23/2023 12:41 PM BLACKSMITH APPRENTICE): See above, follows with Dr. Shrestha. - Continue pantoprazole 40 mg BID Assessment & Plan (08/04/2022 6:23 PM BLACKSMITH APPRENTICE): F/b GI Zohaib Chery. , reviewed note [...] 40mg twice baeza before breakfast and supper mcfp Avoid eating 4 hours before lying down. [...] cancer. Assessment & Plan (10/03/2021 11:04 AM BLACKSMITH APPRENTICE): Followed by her PCP. Chronic and stable. She will continue taking her Pepcid for acid reflux control. Assessment & Plan (09/05/2021 9:54 AM BLACKSMITH APPRENTICE): Followed by her PCP and controlled on her Pepcid. Recommend that she continue her Pepcid. Scoliosis of thoracic spine 06/30/2021 Overview (08/04/2022): F/b Dr. Ramey Wanting to start PT for her back Assessment & Plan (04/21/2024 3:17 PM CDT): Kelley. Assessment & Plan (08/04/2022 6:20 PM BLACKSMITH APPRENTICE): F/b Dr. Ramey Wanting to start PT for her back Environmental allergies 06/30/2021 Assessment & Plan (04/21/2024 3:16 PM CDT): Kelley. Resolved Problems Problem Noted Date Diagnosed Date Resolved Date Folliculitis 10/23/2023 04/21/2024 Assessment & Plan (10/23/2023 12:42 PM BLACKSMITH APPRENTICE): Area of purple-red discoloration at site of [...] started. Assessment & Plan (08/04/2022 6:24 PM BLACKSMITH APPRENTICE): H. pylori infection which was treated in 2019 with amoxicillin, clarithromycin, PPI. However, subsequent breath test was positive. There were plans for Pylera, but the patient never completed the therapy as the Covid pandemic started. Health care maintenance 04/18/2022 0202/2024 Overview (08/04/2022): Images from the original note were not included. C scope 03/2022 completed at [facility], repeat due in 5 years 05/09/22 [...] placed) Assessment & Plan (08/04/2022 6:28 PM BLACKSMITH APPRENTICE): C scope 03/2022 completed at [facility], repeat due in 5 years 06/12/2022 [...] and peripheral heme without retinal breaks , eeo officer 360 . Follow up 3-4 weeks Warning [...] (08/03/2021): Added automatically from request for surgery [id number] Arthritis 06/30/2021 10/23/2023 Assessment & Plan (10/03/2021 11:04 AM BLACKSMITH APPRENTICE): Followed by her PCP. Chronic and stable. She is controlled with her Tylenol and Voltaren gel and recommended that she continue this as needed. Assessment & Plan (09/05/2021 9:55 AM BLACKSMITH APPRENTICE): Followed by her PCP and controlled with Tylenol and Voltaren gel. Recommend that she continue the Tylenol and Voltaren gel for symptomatic relief of arthritis. Chronic UTI 06/30/2021 04/23/2023 Varicose veins of left lower extremity with pain 06/30/2021 10/23/2023 Assessment & Plan (10/03/2021 11:03 AM BLACKSMITH APPRENTICE): Patient does not have any varicose veins [...] needed. 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 DIAGNOSTIC MAMMOGRAM BILATERAL W JAH Schedule Routine, Read Routine (OP Routine) 06/26/2024 10:33 AM CDT Mammogram abnormal HM COLONOSCOPY Routine 04/14/2022 HEPATITIS C ANTIBODY Routine 08/03/2021 11:57 AM BLACKSMITH APPRENTICE Need for hepatitis C screening test from Last 3 Months or Most Recently Relevant to Health Maintenance Results * [facility] Results (12/18/2024 10:59 AM CDT) us Provider Scanning AUDIOLOGY SERVICES ORDERABLES Final Result * Pap and High Risk HPV and Genotyping (Cytology Component) (12/05/2024 1:58 PM CDT) Thin prep (Pap test) 12/05/2024 1:58 PM CDT 12/08/2024 8:30 AM CDT Narrative PATHOLOGY [facility] - 12/10/2024 8:44 AM CDT EPIC results best viewed via link to PDF [address] [address] Tele: Merlyn Morales MD - Regional Ehs Manager CYTOLOGY REPORT Note to Patients: This report [...] the details. Patient Name: SUYAPA MACIAS Address: [address] [place] [address] Gender: F : 1965 (Age: 59) Service: Location: N : [id number] [facility] #: [id number] Patient Type: [facility] [place] SPECIMEN Taken: 12/05/2024 Reported: 12/10/2024 Physician(s): Angeline Sawyer MD FINAL DIAGNOSIS: SOURCE OF SPECIMEN - ThinPrep Pap and HPV w/ reflex Genotyping: STATEMENT OF ADEQUACY Source: Cervical/Endocervical - Satisfactory for interpretation - Endocervical /Transformation Zone component present - Case screened using computer assisted imaging technology GENERAL CATEGORIZATION: - Negative for intraepithelial lesion or malignancy /12/10/2024 08:44Sarah Savage (ASCP) Mary Plascencia M.S., CT (ASCP)Report Reviewed and Electronically Signed By Mary Plascencia M.S., CT (ASCP)Clerical Data Follow A; [id number] DIAGNOSIS COMMENT: [...] part or completely in the following laboratories: [facility], [address] [place] [address], [address] [place] [address]. Angeline Sawyer MD LAB CYTOLOGY ORDERABLES Rhonda milnre Result PATHOLOGY [facility] Laboratory Receiving [address] [place] [address] * ThinPrep processing (Molecular component) (12/05/2024 12:00 PM CDT) ThinPrep processing (Molecular component) Specimen received for processing. Endocervical 12/05/2024 12:0 0 PM CDT 12/05/2024 4:49 PM CDT Angeline Sawyer MD LAB BODY FLUIDS AND STOOLS O RDERABLES Final Result Performing Organization Address City/[facility]/ZIP Co de Phone Number [facility] [address] [place] [address] * High Risk HPV DNA Detection with Genotyping (Molecular component) (12/05/2024 12:00 PM CDT) HPV HR 16 Not Detected Not Detected HPV HR 18 Not Detected Not Detected [facility] HPV HR Non 16/18 Not Detected Not Detected [facility] Comment: Interpretive Data Nucleic acid amplification for [...] this test have been verified by the [facility]. Correlate with separately reported cytology results, as applicable. Interpretive data last revised 23 Endocervical 12/05/2024 12:0 0 PM CDT 12/05/2024 4:49 PM CDT Narrative [facility] - 12/08/2024 6:06 PM CDT Clinical history and diagnosis->none Number of vials->1 Testing type->Screening Last menstrual period (date if known)->none Previous positive HPV history?->No Previous negative PAP?->Yes Angeline Sawyer MD LAB BODY FLUIDS AND STOOLS O RDERABLES Final Result Performing Organization Address City/[facility]/ZIP Co de Phone Number [facility] [address] [place] [address] * CT Temporal Bones WO Contrast (10/07/2024 4:41 PM BLACKSMITH APPRENTICE) Anatomical Region Laterality Modality Head and Neck N/A Computed Tomogra phy 10/07/2024 5:04 PM BLACKSMITH APPRENTICE Impressions 10/07/2024 5:14 PM BLACKSMITH APPRENTICE 1. Dehiscence of the arcuate eminence overlying [...] Denisse Loredo MD Narrative 10/07/2024 5:14 PM BLACKSMITH APPRENTICE EXAMINATION: CT of the temporal bones without [...] Allie Atkins MD on 07/02/2024 9:41 AM BLACKSMITH APPRENTICE ADDENDUM: THE MAMMOGRAPHIC FINDINGS ARE DESCRIBED BELOW. [...] Allie Atkins M.D. LD: LILLIANA Report ID: [id number] Reading Location: [facility] us Angeline Sawyer MD IMG MAMMO PROCEDURES Edited Result - Final * (ABNORMAL) COLONOSCOPY (04/14/2022) Scribed Colonoscopy Abnormal us Generic External Data Provider HEALTH MAINTENANC E Final Result * Hepatitis C antibody (08/03/2021 11:57 AM BLACKSMITH APPRENTICE) Hep C Ab Nonreactive Nonreactive [facility] Comment: Interpretive Data Nonreactive: [...] on 2019. Blood 08/03/2021 11:5 7 AM BLACKSMITH APPRENTICE 08/03/2021 4:34 PM BLACKSMITH APPRENTICE us Ana Carrillo DNP LAB MICROBIOLOGY - GENERAL O RDERABLES Final Result [facility] [address] Department of Laboratories [place], [place] [id number] from Last 3 Months or Most Recently Relevant to Health Maintenance Insurance [facility] CLAIMS [facility] CLAIMS Care Teams Laborer Construction Or Leak [employer] Relationship Specialty Start Date End Date Dary Soria MD [address] [place] [address] PCP - General Internal Medicine 04/19/23 Angeline Sawyer MD [address] [address] Consulting Physician Obstetrics and Gynecology 05/09/22
--- OUTSIDE RECORDS SUMMARY | 2024-12-24 11:05 | XMS_ITS | Encounter Summary ---
Author Organization [facility] Healthcare Address [address] [place] [address] Care Team Providers Care Route Process Administrator Name Role Phone Angeline Sawyer MD Unavailable [phone] Dary Soria MD Primary Care Provider Encounter Details Date Type Department Care Team (Late st Contact Info) Description 12/08/2024 Results Follow-Up [facility] [address] [address] Angeline Sawyer MD [address] [address] Social History Tobacco Use Types Packs/Day Years [...] as of this encounter Miscellaneous Notes * Result Encounter Note - Angeline Sawyer MD - 12/10/2024 9:23 AM CDT I have reviewed your recent pap smear and it is normal. If you have any questions or concerns, do not hesitate to give our office a call. Thank you! Dr. Sawyer * Result Encounter Note - Angeline Sawyer MD - 12/08/2024 6:09 PM CDT The HPV component of the pap smear is negative. The remainder of the pap smear results should result over the next few days. Thank you! Dr. Sawyer documented in this encounter Plan of Treatment Not on file documented as of this encounter Visit Diagnoses Not on filedocumented in this encounter Care Teams Route Process Administrator Relationship Specialty Start Date End Date Dary Soria MD [address] [place], [place] [id number] PCP - General Internal Medicine 04/19/23 Angeline Sawyer MD [address] [place] [address] Consulting Physician Obstetrics and Gynecology 05/09/22 documented as of this encounter
--- OUTSIDE RECORDS SUMMARY | 2024-12-24 11:05 | XMS_ITS | Clinical Summary ---
Author Organization [facility] Address [address] [place] [address] Phone Care Team Providers Care Service Center Technician Name Role Phone Rosa Loredo MD Primary Care Provider [phone] Allergies Active Allergy Reactions Criticality Noted Date [...] 08/03/2021 Active fluticasone propionate (FLONASE) 50 mcg/spray [place], Suspension nasal inhaler 09/08/2021 Active cephALEXin (KEFLEX) [...] Description 05/06/2025 1:15 PM CDT Office Visit [facility] Gastroenterology [address] [place] [address] Zohaib Shrestha MD [address] [place] [address] Health Maintenance Due Date Last Done Comments Pre-Diabetes and Diabetes Screening 1965 HPV/Cotest (21-29) 1985 HPV/Cotest (30-65) 1994 FIT-DNA Q 3 years 2009 FIT/FOBT Q 1 year 2009 Flex Sig/CT Colonography Q 5 years 2009 INFLUENZA VACCINE (#1) 2024 06/08/2020 BREAST CANCER SCREENING 06/20/2024 06/20/20, 12/14/2022, 06/12/2022, Additional history exists CERVICAL CANCER [...] MD - 04/14/2022 11:58 AM CDT [facility] Endoscopy Patient Name: Suyapa Macias Procedure Date: [...] of Addenda: [address]; [place] [address] Zohaib Shrestha MD GI PROCEDURE ORDERABLES Final Result from Last 3 Months or Most Recently Relevant to Health Maintenance Insurance [facility] Advance Directives For more information, please contact: [phone] * Full Code (Latest Code Status on File) Date Activated Date Inactivated Comments 04/14/2022 10:19 AM 04/14/2022 2:30 PM Care Teams Service Center Technician Relationship Specialty Start Date End Date Rosa Loredo MD [id number] [place] [address] PCP - General Internal Medicine 10/07/21
== END 2024-12-24 10:01 | disposition home or self-care (01) ==
PROVIDERS: Visit Provider Orthopaedic Surgery
DX: M17.11 Unilateral primary osteoarthritis, right knee (principal)
CPT/HCPCS: 73564

== ENCOUNTER 2025-02-04 12:30 | Emergency (ER) | payer OTHER, SELFPAY ==
--- NOTE | ~2025-02-04 | US_ITS ---
EXAMINATION:US venous doppler LE RT INDICATION:Leg pain TECHNIQUE: Multiple grayscale, color flow and Doppler images of the right lower extremity deep venous systems were obtained and reviewed. COMPARISON:No prior studies for comparison. FINDINGS: The common femoral, superficial femoral and popliteal veins demonstrate normal respiratory variation, augmentation and compressibility. Color flow is also seen within the posterior tibial, pe roneal, greater saphenous and profunda veins. IMPRESSION: 1: No lower extremity deep venous thrombosis. Reviewed, dictated and finalized at location B.
[2025-02-04 12:38] VITALS: BP 123/71; PULSE 61; RESP 20; TEMP 36.3; O2SAT 98
[2025-02-04 13:14] VITALS: RESP 16; O2SAT 98
[2025-02-04 13:55] LABS: Basophils Percent Auto 0.4 % (0.2-1.2); Eosinophils Absolute Auto 0.1 K/mm3 (0-0.3); Eosinophils Percent Auto 1.7 % (0-4.4); Hematocrit 42.8 % (37.0-47.0); Hemoglobin 13.8 g/dL (12.0-15.0); Immature Granulocyte Absolute 0.02 K/mm3 (0.00-0.031); Immature Granulocyte Percent A 0.3 % (0-0.5); Lymphocytes Percent Auto 23.3 % (18.3-44.2); Mean Corpuscular HGB Conc 32.2 g/dl (32-36); Mean Corpuscular Hemoglobin 28.8 pg (26-34); Mean Corpuscular Volume 89.2 fl (80-100); Mean Platelet Volume 8.5 fl (7.4-10.4); Monocytes Absolute Auto 0.4 K/mm3 (0.1-0.6); Monocytes Percent Auto 6.3 % (2.6-8.5); Neutrophils Absolute Auto 4.7 K/mm3 (1.3-6.7); Platelet Count Result 329 k/mm3 (150-375); Red Cell Distribution Width 13.8 % (11.5-14.5); White Blood Count 6.9 K/mm3 (4.5-10.0)
[2025-02-04 14:03] LABS: Prothrombin Time 13.3 Seconds (11.1-14.7)
[2025-02-04 14:04] LABS: Partial Thromboplastin Time 27.1 Seconds (22.3-36.8)
[2025-02-04 14:14] LABS: Alanine Aminotransferase 39 U/L (6-35); Albumin Level 4.4 g/dL (3.5-5.1); Alkaline Phosphatase 79 U/L (38-126); Anion Gap 6 mmol/L (4-12); Aspartate Amino Transferase 40 U/L (14-36); Bilirubin,Total 0.5 mg/dL (0.2-1.3); Blood Urea Nitrogen 22 mg/dL (7-17); Calcium 10.7 mg/dL (8.4-10.2); Carbon Dioxide 28 mmol/L (22-30); Chloride 104 mmol/L (98-107); Estimated CRCL calculation 89 ml/min; Estimated Glomerular Filt Rate > 60; Glucose 89 mg/dL (65-110); Potassium 4.2 mmol/L (3.4-5.0); Sodium 138 mmol/L (137-145); Total Protein 7.3 g/dL (6.3-8.2)
--- OUTSIDE RECORDS SUMMARY | 2025-02-04 14:24 | XMS_ITS | Referral Summary ---
Author Organization [facility] Address [address] [facility] [address] [place] [address] Phone Care Team Providers Care Tax Analyst Name Role Phone Angeline Sawyer MD Unavailable [phone] Dary Soria MD Primary Care Provider Encounters Date Type Department Care Team Description 02/04/2025 Telephone [facility] Medical [facility] Primary [facility] at [facility] [address] [facility] [address] [place] [address] Dary Soria MD Medical Question/Miscellaneou s 01/01/2025 Telephone [facility] Medical [facility] at [facility] [address] [facility] [address] [place] [address] Dary Soria MD Medical Records Request 12/26/2024 Results Follow-Up [facility] Medical Group Primary Care at [facility] [address] [facility] [address] [place] [address] Dary Soria MD Hepatic function panel 12/25/2024 3:12 PM CDT - 12/25/2024 11:59 PM CDT Hospital Encounter [facility] [address] [place] [address] Discharge Disposition: Discharge to home or self care 12/25/2024 2:45 PM CDT Lab [facility] Medical [facility] at [facility] [address] [facility] [address] [place] [phone] 12/25/2024 2:00 PM CDT Office Visit [facility] Primary Care at [facility] [address] [facility] [address] [place] [address] Dary Soria MD Elevated liver enzymes (Primary Dx); Onychomycosis; 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 2nd [address], [address] [place] [address] Manolo Garcia, OD Hordeolum internum of right upper eyelid (Primary Dx) 12/18/2024 Telephone [facility] Ophthalmology [address], [address] [place] [address] Manolo Garcia, OD 12/18/2024 11:00 AM CDT Procedure visit [facility] Otolaryngology [address], [address] [place] [address] Conductive hearing loss of left ear with unrestricted hearing of right ear (Primary Dx) 12/18/2024 11:40 AM CDT Office Visit [facility] Otolaryngology 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 Dizziness and giddiness 12/08/2024 Results Follow-Up [facility] [address] [facility] [address] [place] [address] Angeline Sawyer MD High Risk HPV DNA Detection with Genotyping (Molecular component), ThinPrep processing (Molecular component), Pap and High Risk HPV and Genotyping (Cytology Component) 12/05/2024 3:44 PM CDT - 12/05/2024 11:59 PM CDT Hospital Encounter [facility] [address] [place] [address] Screening for malignant neoplasm of the cervix; Screening for HPV (human papillomavirus) Discharge Disposition: Discharge to home or self care 12/05/2024 10:30 AM CDT Office Visit [facility] Medical Group [facility] [address], [place] [address] Angeline Sawyer MD Encounter for well woman exam with routine gynecological exam (Primary Dx); Screening for malignant neoplasm of the cervix; Screening for HPV (human papillomavirus); Postmenopausal atrophic vaginitis; Age-related osteoporosis without current pathological fracture 12/04/2024 Telephone [facility]) [facility] E[facility] [address] [facility] [address] 11th [place] [address] [place] [address] Erin Rondon MS 12/03/2024 Orders Only [facility] Otolaryngology [address], [address] [place] [address] Abby Chew RN Dizziness and giddiness (Primary Dx) 12/02/2024 11:00 AM CDT Office Visit [facility] Ophthalmology [address], [address] [place] [address] Manolo Garcia, OD Hordeolum internum of right upper eyelid (Primary Dx); Age-related nuclear cataract of both eyes 12/02/2024 Telephone [facility] Ophthalmology [address] [place] [address] Dion Pinto MD [facility] 12/01/2024 1:00 PM CDT Procedure visit [facility] Otolaryngology [address] [place] [address] [address]th [place] [address] [place] [address] Colleen Sheikh Au.D. 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 11/30/2024 4:00 PM CDT Office Visit [facility] Medical Group Convenient Care at [address] [address] Monika Angel NP Hordeolum internum of right upper eyelid (Primary Dx); Contusion of right great toe without damage to nail, initial encounter 11/10/2024 9:00 AM CDT Procedure visit [facility] [address] [facility] [address] [place] [address] Cody Ho MD Globus sensation (Primary Dx); Chronic throat clearing; Cervicalgia from Last 3 Months Allergies Active Allergy Reactions Criticality Noted Date Comments Amoxicillin Other (See comments) Low 12/29/2007 Pt states that this shouldn't be in the chart. Erythromycin Palpitations,Unknown Low 12/29/2007 Erythromycin Estolate Other (See comments) Low 0511/2007 Hay Fever And Allergy Relief Eye irritation,Itching,S [...] nostril daily 16 g 5 2 Active loratadine-pseudo ephedrine (Claritin-D 12 Hour) 5-120 mg tablet extended release 12 hr Take 1 mg by mouth Active estradioL (VAGIFEM) 10 mcg tabletIndications :Postmenopausal atrophic vaginitis Insert one tablet into vagina twice weekly 24 tablet 3 5 Active alendronate (FOSAMAX) 70 mg tabletIndications :Age-related osteoporosis without current pathological fracture Take 1 tablet (70 mg total) by mouth every 7 days Take in the morning with a full glass of water, on an empty stomach, and do not take anything else by mouth or lie down for the next 30 min. 12 tablet 3 5 02/28/20 25 Active terbinafine (LamiSIL) 250 mg tablet TAKE 1 TABLET BY MOUTH EVERY DAY FOR 2 WEEKS OUT OF EACH MONTH 5 Active doxycycline (VIBRAMYCIN) 100 mg capsuleIndication s:Hordeolum internum of right upper eyelid Take 1 tablet/capsule (100 mg total) by mouth 2 (two) times a day 60 tablet/capsu le 1 5 02/17/20 25 Active Active Problems Problem Noted Date Diagnosed Date Hordeolum internum of right upper eyelid 025 Assessment & Plan (12/18/2024 12:42 PM CDT): Improving but not resolved, now with [email or web address] Educated and reassured patient of findings Continue [...] canal dehiscence of left e ar 09/25/2024 Assessment & Plan (12/26/2024 11:15 AM CDT): Following with ENT Dr. Gonzalez. Working on vestibular rehabilitation, deferred any surgical intervention. Diagnosed with superior canal dehiscence syndrome, causing balance issues and auditory symptoms such as hearing heartbeat and neck cracking. Surgical intervention has been discussed with an ENT specialist, but she is currently managing symptoms and considering future options. Risks of surgery include potential dizziness and hearing loss, but the ENT specialist has not caused hearing loss in previous surgeries. - Consider surgical intervention if symptoms become intolerable. - Follow up with ENT specialist for ongoing management and evaluation of surgical options. Encounter for preventive health examination 09/28 Assessment & Plan (04/21/2024 2:01 PM CDT): General - HbA1c: 5.4% 03/2023 - Lipid panel: LDL 127 03/2023 - ASCVD score: 1.7% low risk - DEXA scan: UTD 04/2022, repeat 04/2024 Cancer - Colonoscopy: UTD 03/2022, repeat 03/2027 - Mammogram: UTD 05/2023, repeat 05/2024 - Pap: UTD 10/2021, repeat per Collar Packer Immunizations - Influenza: Recommend annually - Td/Tdap: UTD 07/2021, repeat 07/2031 - PCV20: Discuss at 64 - Shingles: UTD x 2 2020 - COVID: Recommended Assessment & Plan (10/23/2023 12:43 PM MICROSOFT SYSTEMS ENGINEER): General - HbA1c: 5.4% 03/2023, repeat annually - Lipid panel: LDL 127 03/2023, repeat annually - ASCVD score: 2.2% low risk - DEXA scan: UTD 04/2022, repeat 04/2024 Cancer - Colonoscopy: UTD 03/2022, repeat 03/2027 - Mammogram: UTD 05/2023, repeat 05/2024 - Pap: UTD 10/2021, repeat per Collar Packer Immunizations - Influenza: Recommended - Td/Tdap: UTD 07/2021, repeat 07/2031 - PCV20: Discuss at 64 - Shingles: UTD x 2 2020 - COVID: Recommended Primary osteoarthritis involving multiple joints 10/23/2023 Assessment & Plan (04/21/2024 3:17 PM CDT): Considering R knee replacement. Assessment & Plan (10/23/2023 12:43 PM MICROSOFT SYSTEMS ENGINEER): Chronic, does use NSAIDs occasionally. Discussed risks, benefits, and alternatives. Prediabetes 08/04/2022 Assessment & Plan (04/21/2024 3:16 PM CDT): A1c normal on last check. Anxiety 08/04/2022 Assessment & Plan (04/21/2024 3:16 PM CDT): Increasing anxiety lately about memory and health. Reassurance provided today. Consider SSRI in future. Assessment & Plan (08/04/2022 6:18 PM MICROSOFT SYSTEMS ENGINEER): Large amount of life stressors Overwhelmed Discussed [...] regimen Assessment & Plan (10/23/2023 12:41 PM MICROSOFT SYSTEMS ENGINEER): Continues on Fosamax 70 mg daily. - Continue current regimen Assessment & Plan (08/04/2022 6:22 PM MICROSOFT SYSTEMS ENGINEER): Noted on Dexa 2021 Fosamax Age-related nuclear [...] sensation. Assessment & Plan (10/23/2023 12:41 PM MICROSOFT SYSTEMS ENGINEER): Follows with ENT and GI, has been [...] 40mg twice baeza before breakfast and supper custodial Avoid eating 4 hours before lying down. [...] BID Assessment & Plan (10/23/2023 12:41 PM MICROSOFT SYSTEMS ENGINEER): See above, follows with Dr. Shrestha. - Continue pantoprazole 40 mg BID Assessment & Plan (08/04/2022 6:23 PM MICROSOFT SYSTEMS ENGINEER): F/b GI Zohaib Chery. , reviewed note [...] 40mg twice baeza before breakfast and supper custodial Avoid eating 4 hours before lying down. [...] cancer. Assessment & Plan (10/03/2021 11:04 AM MICROSOFT SYSTEMS ENGINEER): Followed by her PCP. Chronic and stable. She will continue taking her Pepcid for acid reflux control. Assessment & Plan (09/05/2021 9:54 AM MICROSOFT SYSTEMS ENGINEER): Followed by her PCP and controlled on her Pepcid. Recommend that she continue her Pepcid. Scoliosis of thoracic spine 06/30/2021 Overview (08/04/2022): F/b Dr. Ramey Wanting to start PT for her back Assessment & Plan (04/21/2024 3:17 PM CDT): Stable. Assessment & Plan (08/04/2022 6:20 PM MICROSOFT SYSTEMS ENGINEER): F/b Dr. Ramey Wanting to start PT for her back Environmental allergies 06/30/2021 Assessment & Plan (04/21/2024 3:16 PM CDT): Stable. Resolved Problems Problem Noted Date Diagnosed Date Resolved Date Folliculitis 10/23/2023 04/21/2024 Assessment & Plan (10/23/2023 12:42 PM MICROSOFT SYSTEMS ENGINEER): Area of purple-red discoloration at site of [...] started. Assessment & Plan (08/04/2022 6:24 PM MICROSOFT SYSTEMS ENGINEER): H. pylori infection which was treated in 2019 with amoxicillin, clarithromycin, PPI. However, subsequent breath test was positive. There were plans for Pylera, but the patient never completed the therapy as the Covid pandemic started. Health care maintenance 04/18/202209/28 Overview (08/04/2022): Images from the original note were not included. C scope 03/2022 completed at [facility], repeat due in 5 years 05/09/22 [...] placed) Assessment & Plan (08/04/2022 6:28 PM MICROSOFT SYSTEMS ENGINEER): C scope 03/2022 completed at [facility], repeat due in 5 years 06/12/2022 [...] and peripheral heme without retinal breaks , at risk specialist 360 . Follow up 3-4 weeks Warning [...] (08/03/2021): Added automatically from request for surgery [id number] Arthritis 06/30/2021 10/23/2023 Assessment & Plan (10/03/2021 11:04 AM MICROSOFT SYSTEMS ENGINEER): Followed by her PCP. Chronic and stable. She is controlled with her Tylenol and Voltaren gel and recommended that she continue this as needed. Assessment & Plan (09/05/2021 9:55 AM MICROSOFT SYSTEMS ENGINEER): Followed by her PCP and controlled with Tylenol and Voltaren gel. Recommend that she continue the Tylenol and Voltaren gel for symptomatic relief of arthritis. Chronic UTI 06/30/2021 04/23/2023 Varicose veins of left lower extremity with pain 06/30/2021 10/23/2023 Assessment & Plan (10/03/2021 11:03 AM MICROSOFT SYSTEMS ENGINEER): Patient does not have any varicose veins [...] needed. Assessment & Plan (09/05/2021 9:56 AM MICROSOFT SYSTEMS ENGINEER): Patient has spider veins on her bilateral [...] Sign Reading Time Taken Comments Blood Pressure 98/60 12/25/2024 2:11 PM CDT Pulse 66 12/25/2024 2:11 PM CDT Temperature 36.4 C (97.5 F) 11/30/2024 4:30 PM CDT Respiratory Rate 20 11/30/2024 4:30 PM CDT Oxygen Saturation 96% 12/25/2024 2:11 PM CDT Inhaled Oxygen Concentration - - Weight 79.8 kg (176 lb) 12/25/2024 2:11 PM CDT Height 170.2 cm (5' 7.01) 12/25/2024 2:11 PM CD T Body Mass Index 27.56 12/25/2024 2:11 PM CDT Plan of Treatment Not on file Procedures Procedure Name Priority Date/Time Associated Diagnosis Comments HEPATIC FUNCTION PANEL Routine 12/25/2024 2:45 PM CDT Elevated liver enzymes Onychomycosis AUDBASE RESULTS 12/18/2024 10:59 AM CDT PAP [...] the cervix Screening for HPV (human papillomavirus) DIAGNOSTIC MAMMOGRAM BILATERAL W JAH Schedule Routine, Read Routine (OP Routine) 06/26/2024 10:33 AM CDT Mammogram abnormal HM COLONOSCOPY Routine 04/14/2022 HEPATITIS C ANTIBODY Routine 08/03/2021 11:57 AM MICROSOFT SYSTEMS ENGINEER Need for hepatitis C screening test from Last 3 Months or Most Recently Relevant to Health Maintenance Results * Hepatic function panel (12/25/2024 2:45 PM CDT) Bilirubin, total 0.7 0.1 - 1.2 mg/dL Bilirubin, direct 0.2 0.1 - 0.3 mg/dL [facility] Protein, pl 7.4 6.5 - 8.5 g/dL [facility] Albumin 4.4 3.5 - 5.0 g/dL [facility] Alk phos 66 40 - 130 Units/L [facility] ALT 41 7 - 45 Units/L [facility] AST 25 10 - 45 Units/L [facility] Blood 12/25/2024 2:45 PM CDT 12/25/2024 6:55 PM CDT Dary Soria MD LAB BLOOD ORDERABLES F inal Result [place] [id number] Department [place] [address] * AudBase Results (12/18/2024 10:59 AM CDT) Provider Scanning AUDIOLOGY SERVICES ORDERABLES Final Result * Pap and High Risk HPV and Genotyping (Cytology Component) (12/05/2024 1:58 PM CDT) Thin prep (Pap test) 12/05/2024 1:58 PM CDT 12/08/2024 8:30 AM CDT Narrative PATHOLOGY [facility] - 12/10/2024 8:44 AM CDT EPIC results best viewed via link to PDF [place] [id number] [place], [place] [address] Tele: Merlyn Morales MD - Airborne Operations Manager CYTOLOGY REPORT Note to Patients: This [...] and explain the details. Patient Name: SUYAPA AUGUSTIN Address: [address] [place] [address] Gender: F : 1965 (Age: 59) Service: Location: N : [id number] [facility] #: [id number] Patient Type: [facility] SPECIMEN Taken: 12/05/2024 Reported: 12/10/2024 Physician(s): Angeline [...] part or completely in the following laboratories: [facility], [address] [facility] [address], [place] [address] [facility], [address], [place] [address]. us Angeline Sawyer MD LAB CYTOLOGY ORDERABLES Rhonda l Result PATHOLOGY [facility] Laboratory Receiving [address] [place] [address] * ThinPrep processing (Molecular component) (12/05/2024 12:00 PM CDT) [facility] ThinPrep processing (Molecular component) Specimen received for processing. Endocervical 12/05/2024 12:0 0 PM CDT 12/05/2024 4:49 PM CDT Angeline Sawyer MD LAB BODY FLUIDS AND STOOLS O RDERABLES Final Result Performing Organization Address City/[facility]/ZIP Co de Phone Number [facility] [address] Department [place] [address] * High Risk HPV DNA Detection with Genotyping (Molecular component) (12/05/2024 12:00 PM CDT) [facility] HPV HR 16 Not Detected Not Detected HPV HR 18 Not Detected Not Detected [facility] HPV HR Non 16/18 Not Detected Not Detected [facility] Comment: Interpretive Data Nucleic acid amplification for [...] this test have been verified by the [facility]. Correlate with separately reported cytology results, as applicable. Interpretive data last revised 23 Endocervical 12/05/2024 12:0 0 PM CDT 12/05/2024 4:49 PM CDT [facility]ative [facility] - 12/08/2024 6:06 PM CDT Clinical history and diagnosis->none Number of vials->1 Testing type->Screening Last menstrual period (date if known)->none Previous positive HPV history?->No Previous negative PAP?->Yes us Angeline Sawyer MD LAB BODY FLUIDS AND STOOLS O RDERABLES Final Result [facility] [address] [place] Department [place] [address] * Diagnostic Mammogram Bilateral W Jah (06/26/2024 10:33 AM CDT) Anatomical Region Laterality Modality Breast Bilateral Mammography 06/26/2024 3:38 PM CDT Addenda Addendum by Allie Atkins MD on 07/02/2024 9:41 AM MICROSOFT SYSTEMS ENGINEER ADDENDUM: THE MAMMOGRAPHIC FINDINGS ARE DESCRIBED BELOW. [...] Allie Atkins M.D. LD: LILLIANA Report ID: [id number] Reading Location: [facility] us Angeline Sawyer MD IMG MAMMO PROCEDURES Edited Result - Final * (ABNORMAL) COLONOSCOPY (04/14/2022) Scribed Colonoscopy Abnormal us Generic External Data Provider HEALTH MAINTENANC E Final Result * Hepatitis C antibody (08/03/2021 11:57 AM MICROSOFT SYSTEMS ENGINEER) Hep C Ab Nonreactive Nonreactive [facility] Comment: Interpretive Data Nonreactive: Antibodies to HCV [...] on 2019. Blood 08/03/2021 11:5 7 AM MICROSOFT SYSTEMS ENGINEER 08/03/2021 4:34 PM MICROSOFT SYSTEMS ENGINEER us Ana Carrillo DNP LAB MICROBIOLOGY - GENERAL O RDERABLES Final Result [facility] [address] Department [place] [address] from Last 3 Months or Most Recently Relevant to Health Maintenance Insurance [id number] CLAIMS CLAIMS Care Teams Tax Analyst Relationship Specialty Start Date End Date Dary Soria MD [address] [facility] [address] [place], [place] [id number] PCP - General Internal Medicine 04/19/23 Angeline Sawyer MD [address] [facility] [address] [place] [address] Consulting Physician Obstetrics and Gynecology 05/09/22
--- OUTSIDE RECORDS SUMMARY | 2025-02-04 14:24 | XMS_ITS | Encounter Summary ---
Author Organization [facility] Healthcare Address [address] [place] [address] Care Team Providers Care Staff Educator Name Role Phone Angeline Sawyer MD Unavailable [phone] Dary Soria MD Primary Care Provider Reason for Visit * Reason Onset Date Comments Medical Question/Miscellaneous 02/04/2025 Encounter Details Date Type Department Care Team (Late st Contact Info) Description 02/04/[address] [facility] Medical Group Primary Care at [facility] [address] [facility] [address] [place] [address] Dary Soria MD [address] [facility] [address] [place] [address] Medical Question/Miscellaneous Social History Tobacco Use Types Packs/Day Years [...] encounter Miscellaneous Notes * Telephone Encounter - Dary Soria MD - 02/04/2025 10:56 AM CDT Noted * Telephone Encounter - Faye Navarro - 02/04/2025 10:26 AM CDT Medical Question/Miscellaneous Caller???s Concern: Patient requested appt for today but nothing available until 3pm. She wanted sooner but stated she will head to ER due to the infection in her leg. Noting as FYI for Dr. Soria. Does message need to be routed? Yes-FYI Only documented in this encounter Plan of Treatment Not on file documented as of this encounter Visit Diagnoses Not on filedocumented in this encounter Care Teams Staff Educator Relationship Specialty Start Date End Date Dary Soria MD [address] [place] [address] PCP - General Internal Medicine 04/19/23 Angeline Sawyer MD [address] [place] [address] Consulting Physician Obstetrics and Gynecology 05/09/22 documented as of this encounter
--- OUTSIDE RECORDS SUMMARY | 2025-02-04 14:24 | XMS_ITS | Encounter Summary ---
Author Organization [facility] Healthcare Address [address] [place] [address] Care Team Providers Care Cosmetic Surgeon Name Role Phone Angeline Sawyer MD Unavailable [phone] Dary Soria MD Primary Care Provider Encounter Details Date Type Department Care Team (Late st Contact Info) Description 12/26/2024 Results Follow-Up [facility] Medical Group Primary Care at [facility] [address] [facility] [address] [place] [address] Dary Soria MD [facility] [place] [facility] [address] [place] [address] Hepatic function panel Social History Tobacco Use Types Packs/Day Years [...] as of this encounter Plan of Treatment Not on file documented as of this encounter Visit Diagnoses Not on filedocumented in this encounter Care Teams Cosmetic Surgeon Relationship Specialty Start Date End Date Dary Soria MD [address] [place], [place] [id number] PCP - General Internal Medicine 04/19/23 Angeline Sawyer MD [address] [place] [address] Consulting Physician Obstetrics and Gynecology 05/09/22 documented as of this encounter
--- OUTSIDE RECORDS SUMMARY | 2025-02-04 14:24 | XMS_ITS | Clinical Summary ---
Author Organization [facility] Address [address] [place] [address] Phone Care Team Providers Care Computer Training Specialist Name Role Phone Angeline Sawyer MD Unavailable Dary Soria MD Primary Care Provider Allergies [...] 05/2024 - Pap: UTD 10/2021, repeat per Electrical Cad Designer Immunizations - Influenza: Recommend annually - Td/Tdap: UTD 07/2021, repeat 07/2031 - PCV20: Discuss at 64 - Shingles: UTD x 2 2020 - COVID: Recommended Assessment & Plan (10/23/2023 12:43 PM MEAT CUTTING BLOCK REPAIRER): General - HbA1c: 5.4% 03/2023, repeat annually - Lipid panel: LDL 127 03/2023, repeat annually - ASCVD score: 2.2% low risk - DEXA scan: UTD 04/2022, repeat 04/2024 Cancer - Colonoscopy: UTD 03/2022, repeat 03/2027 - Mammogram: UTD 05/2023, repeat 05/2024 - Pap: UTD 10/2021, repeat per Electrical Cad Designer Immunizations - Influenza: Recommended - Td/Tdap: UTD 07/2021, repeat 07/2031 - PCV20: Discuss at 64 - Shingles: UTD x 2 2020 - COVID: Recommended Primary osteoarthritis involving multiple joints 10/23/2023 Assessment & Plan (04/21/2024 3:17 PM CDT): Considering R knee replacement. Assessment & Plan (10/23/2023 12:43 PM MEAT CUTTING BLOCK REPAIRER): Chronic, does use NSAIDs occasionally. Discussed risks, benefits, and alternatives. Prediabetes 08/04/2022 Assessment & Plan (04/21/2024 3:16 PM CDT): A1c normal on last check. Anxiety 08/04/2022 Assessment & Plan (04/21/2024 3:16 PM CDT): Increasing anxiety lately about memory and health. Reassurance provided today. Consider SSRI in future. Assessment & Plan (08/04/2022 6:18 PM MEAT CUTTING BLOCK REPAIRER): Large amount of life stressors Overwhelmed Discussed [...] regimen Assessment & Plan (10/23/2023 12:41 PM MEAT CUTTING BLOCK REPAIRER): Continues on Fosamax 70 mg daily. - Continue current regimen Assessment & Plan (08/04/2022 6:22 PM MEAT CUTTING BLOCK REPAIRER): Noted on Dexa 2021 Fosamax Age-related nuclear [...] sensation. Assessment & Plan (10/23/2023 12:41 PM MEAT CUTTING BLOCK REPAIRER): Follows with ENT and GI, has been [...] 40mg twice baeza before breakfast and supper [facility] Avoid eating 4 hours before lying down. [...] BID Assessment & Plan (10/23/2023 12:41 PM MEAT CUTTING BLOCK REPAIRER): See above, follows with Dr. Shrestha. - Continue pantoprazole 40 mg BID Assessment & Plan (08/04/2022 6:23 PM MEAT CUTTING BLOCK REPAIRER): F/b GI Zohaib Chery. , reviewed note [...] 40mg twice baeza before breakfast and supper [facility] Avoid eating 4 hours before lying down. [...] cancer. Assessment & Plan (10/03/2021 11:04 AM MEAT CUTTING BLOCK REPAIRER): Followed by her PCP. Chronic and stable. She will continue taking her Pepcid for acid reflux control. Assessment & Plan (09/05/2021 9:54 AM MEAT CUTTING BLOCK REPAIRER): Followed by her PCP and controlled on her Pepcid. Recommend that she continue her Pepcid. Scoliosis of thoracic spine 06/30/2021 Overview (08/04/2022): F/b Dr. Ramey Wanting to start PT for her back Assessment & Plan (04/21/2024 3:17 PM CDT): Kelley. Assessment & Plan (08/04/2022 6:20 PM MEAT CUTTING BLOCK REPAIRER): F/b Dr. Ramey Wanting to start PT for her back Environmental allergies 06/30/2021 Assessment & Plan (04/21/2024 3:16 PM CDT): Kelley. Resolved Problems Problem Noted Date Diagnosed Date Resolved Date Folliculitis 10/23/2023 04/21/2024 Assessment & Plan (10/23/2023 12:42 PM MEAT CUTTING BLOCK REPAIRER): Area of purple-red discoloration at site of [...] started. Assessment & Plan (08/04/2022 6:24 PM MEAT CUTTING BLOCK REPAIRER): H. pylori infection which was treated in 2019 with amoxicillin, clarithromycin, PPI. However, subsequent breath test was positive. There were plans for Pylera, but the patient never completed the therapy as the Covid pandemic started. Health care maintenance 04/18/2022 0202/2024 Overview (08/04/2022): Images from the original note were not included. C scope 03/2022 completed at [facility], repeat due in 5 years 05/09/22 [...] placed) Assessment & Plan (08/04/2022 6:28 PM MEAT CUTTING BLOCK REPAIRER): C scope 03/2022 completed at [facility], repeat due in 5 years 06/12/2022 [...] and peripheral heme without retinal breaks , quality improvement engineer 360 . Follow up 3-4 weeks Warning [...] (08/03/2021): Added automatically from request for surgery [id number] Arthritis 06/30/2021 10/23/2023 Assessment & Plan (10/03/2021 11:04 AM MEAT CUTTING BLOCK REPAIRER): Followed by her PCP. Chronic and stable. She is controlled with her Tylenol and Voltaren gel and recommended that she continue this as needed. Assessment & Plan (09/05/2021 9:55 AM MEAT CUTTING BLOCK REPAIRER): Followed by her PCP and controlled with Tylenol and Voltaren gel. Recommend that she continue the Tylenol and Voltaren gel for symptomatic relief of arthritis. Chronic UTI 06/30/2021 04/23/2023 Varicose veins of left lower extremity with pain 06/30/2021 10/23/2023 Assessment & Plan (10/03/2021 11:03 AM MEAT CUTTING BLOCK REPAIRER): Patient does not have any varicose veins [...] needed. Assessment & Plan (09/05/2021 9:56 AM MEAT CUTTING BLOCK REPAIRER): Patient has spider veins on her bilateral [...] Type Department Care Team Description 02/04/2025 Telephone [facility] Primary Care at [address] [address] Dary Soria MD Medical Question/Miscellaneou s 01/01/2025 Telephone [facility] Primary Care at [address] [address] Dary Soria MD Medical Records Request 12/26/2024 Results Follow-Up [facility] Primary Care at [address] [place] [address] Dary Soria MD Hepatic function panel 12/25/2024 3:12 PM CDT - 12/25/2024 11:59 PM CDT Hospital Encounter [address] [address] Discharge Disposition: Discharge to home or self care 12/25/2024 2:45 PM CDT Lab [facility] Primary Care at [place] [address] [place] [phone] 12/25/2024 2:00 PM CDT Office Visit [facility] Medical [facility] Primary Care at [facility] [address] [place] [phone] Dary Soria MD Elevated liver enzymes (Primary Dx); Onychomycosis; 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, [address] [place] [address] Manolo Garcia, MIRANDA Hordeolum internum of right upper eyelid (Primary Dx) 12/18/2024 11:40 AM CDT Office Visit [facility] Otolaryngology 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, [address] [place] [address] Conductive hearing loss of left ear with unrestricted hearing of right ear (Primary Dx) 12/18/2024 Telephone [facility] Ophthalmology [address], [address] [place] [address] Manolo Garcia, OD 12/16/2024 1:00 PM CDT Procedure visit [facility] Otolaryngology [address] 11th [place] [address] [place] [address] Colleen Patel Au.D. Dizziness and giddiness 12/08/2024 Results Follow-Up [facility] Medical [facility] [address] [place] [address] Angeline Sawyer MD High Risk HPV DNA Detection with Genotyping (Molecular component), ThinPrep processing (Molecular component), Pap and High Risk HPV and Genotyping (Cytology Component) 12/05/2024 3:44 PM CDT - 12/05/2024 11:59 PM CDT Hospital Encounter [facility] [address] [place] [address] Screening for malignant neoplasm of the cervix; Screening for HPV (human papillomavirus) Discharge Disposition: Discharge to home or self care 12/05/2024 10:30 AM CDT Office Visit [facility] Medical [facility] [address] [address] Angeline Sawyer MD Encounter for well woman exam with routine gynecological exam (Primary Dx); Screening for malignant neoplasm of the cervix; Screening for HPV (human papillomavirus); Postmenopausal atrophic vaginitis; Age-related osteoporosis without current pathological fracture 12/04/2024 Telephone [facility] ENT [address] [place] [address] [place] [address] Rondon, Erin, 12/03/2024 Orders Only [facility] Otolaryngology [address], [address] [place] [address] Abby Chew RN Dizziness and giddiness (Primary Dx) 12/02/2024 11:00 AM CDT Office Visit [facility] Ophthalmology [address], [address] [place] [address] Manolo Garcia, OD Hordeolum internum of right upper eyelid (Primary Dx); Age-related nuclear cataract of both eyes 12/02/2024 Telephone [facility] Ophthalmology [address] [place] [address] Dion Pinto MD new symptoms 12/01/2024 1:00 PM CDT Procedure visit [facility] Otolaryngology [address]th [place] [address] [place] [address] Vietnamese, Colleen Janna, Au.D. 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 ENT [address] Medical Office [address] [place] [address] Cody Ho MD Globus sensation (Primary Dx); Chronic throat clearing; Cervicalgia from Last 3 Months Immunizations Immunization Administration [...] Brother 2 Joe Adina Cancer Father Siva F. Adina Cataracts Father Siva F. Adina Glaucoma Father Siva F. Adina Hearing loss Father Siva F. Adina Heart attack Father Siva F. Adina Snoring Father Siva F. Adina Alcohol abuse Maternal Grandfather Ortega Cataracts Maternal Grandmother Glaucoma Maternal Grandmother Arthritis Mother Sofia Adina Cataracts Mother Sofia Adina Clotting disorder Mother Sofia Adina Glaucoma Mother Sofia Adina Obesity Mother Sofia Adina Osteoarthritis Mother Sofia Holden Parkinsonism Mother Sofia Holden ADD / ADHD Son Siva Sands defects Son Siva Sands Breast cancer Neg Hx Colon cancer Neg [...] 12/25/2024 2:11 PM CDT Plan of Treatment Health Maintenance Due [...] HEPATITIS C ANTIBODY Routine 08/03/2021 11:57 AM MEAT CUTTING BLOCK REPAIRER Need for hepatitis C screening test from Last 3 Months or Most Recently Relevant to Health Maintenance Results * Hepatic function panel (12/25/2024 2:45 PM CDT) Bilirubin, total 0.7 0.1 - 1.2 mg/dL Bilirubin, direct 0.2 0.1 - 0.3 mg/dL [facility] Protein, pl 7.4 6.5 - 8.5 g/dL [facility] Albumin 4.4 3.5 - 5.0 g/dL [facility] Alk phos 66 40 - 130 Units/L [facility] ALT 41 7 - 45 Units/L [facility] AST 25 10 - 45 Units/L [facility] Blood 12/25/2024 2:45 PM CDT 12/25/2024 6:55 PM CDT us Dary Soria MD LAB BLOOD ORDERABLES F inal Result [facility] [address] Department [place] [address] * [employer] Results (12/18/2024 10:59 AM CDT) Provider Scanning AUDIOLOGY SERVICES ORDERABLES Final Result * Pap and High Risk HPV and Genotyping (Cytology Component) (12/05/2024 1:58 PM CDT) Thin prep (Pap test) 12/05/2024 1:58 PM CDT 12/08/2024 8:30 AM CDT Narrative PATHOLOGY [facility] - 12/10/2024 8:44 AM CDT EPIC results best viewed via link to PDF [address] [address] Tele: Merlyn Morales MD - Marble Mechanic Helper CYTOLOGY REPORT Note to Patients: This report [...] the details. Patient Name: SUYAPA AUGUSTIN Address: [address] [place] [address] Gender: F : 1965 (Age: 59) Service: Location: [facility] : [id number] [facility] #: [id number] Patient Type: [facility] Taken: 12/05/2024 Reported: 12/10/2024 Physician(s): Angeline Sawyer MD FINAL DIAGNOSIS: SOURCE OF SPECIMEN - ThinPrep Pap and HPV w/ reflex Genotyping: STATEMENT OF ADEQUACY Source: Cervical/Endocervical - Satisfactory for interpretation - Endocervical /Transformation Zone component present - Case screened using computer assisted imaging technology GENERAL CATEGORIZATION: - Negative for intraepithelial lesion or malignancy cad/12/10/2024 08:44Sarah Savage (ASCP) Mary Plascencia M.S., CHAKA (ASC)Report Reviewed and Electronically Signed By Mary Plascencia M.S., CHAKA (ASC)Clerical Data Follow A; G0145 DIAGNOSIS COMMENT: Ancillary [...] part or completely in the following laboratories: [facility], [address] [place] [address], [address] [place] [address]. Angeline Sawyer MD LAB CYTOLOGY ORDERABLES Rhonda l Result PATHOLOGY [facility] Laboratory Receiving [address] [place] [address] * ThinPrep processing (Molecular component) (12/05/2024 12:00 PM CDT) ThinPrep processing (Molecular component) Specimen received for processing. Endocervical 12/05/2024 12:0 0 PM CDT 12/05/2024 4:49 PM CDT Angeline Sawyer MD LAB BODY FLUIDS AND STOOLS O RDERABLES Final Result Performing Organization Address City/[facility]/ZIP Co de Phone Number [facility] [address] Department [place] [address] * High Risk HPV DNA Detection with Genotyping (Molecular component) (12/05/2024 12:00 PM CDT) HPV HR 16 Not Detected Not Detected HPV HR 18 Not Detected Not Detected [facility] HPV HR Non 16/18 Not Detected Not Detected [facility] Comment: Interpretive Data [...] this test have been verified by the [facility] Laboratory. Correlate with separately reported cytology results, as applicable. Interpretive data last revised 23 Endocervical 12/05/2024 12:0 0 PM CDT 12/05/2024 4:49 PM CDT Narrative [facility] - 12/08/2024 6:06 PM CDT Clinical history and diagnosis->none Number of vials->1 Testing type->Screening Last menstrual period (date if known)->none Previous positive HPV history?->No Previous negative PAP?->Yes Angeline Sawyer MD LAB BODY FLUIDS AND STOOLS O RDERABLES Final Result Performing Organization Address City/[facility]/ZIP Co de Phone Number [facility] [address] Department [place] [address] * Diagnostic Mammogram Bilateral W Jah (06/26/2024 10:33 AM CDT) Anatomical Region Laterality Modality Breast Bilateral Mammography 06/26/2024 3:38 PM CDT Addenda Addendum by Allie Atkins MD on 07/02/2024 9:41 AM MEAT CUTTING BLOCK REPAIRER ADDENDUM: THE MAMMOGRAPHIC FINDINGS ARE DESCRIBED BELOW. [...] Allie Atkins M.D. LD: LILLIANA Report ID: [id number] Reading Location: [facility] Angeline Sawyer MD IMG MAMMO PROCEDURES Edited Result - Final * (ABNORMAL) COLONOSCOPY (04/14/2022) Scribed Colonoscopy Abnormal Generic External Data Provider [facility] Final Result * Hepatitis C antibody (08/03/2021 11:57 AM MEAT CUTTING BLOCK REPAIRER) Hep C Ab Nonreactive Nonreactive [facility] Comment: Interpretive Data Nonreactive: Antibodies to HCV [...] on 2019. Blood 08/03/2021 11:5 7 AM MEAT CUTTING BLOCK REPAIRER 08/03/2021 4:34 PM MEAT CUTTING BLOCK REPAIRER us Ana Carrillo DNP LAB MICROBIOLOGY - GENERAL O RDERABLES Final Result [facility] [address] Department [place] [address] from Last 3 Months or Most Recently Relevant to Health Maintenance Insurance [employer] CLAIMS [employer] CLAIMS Care Teams Computer Training Specialist Relationship Specialty Start Date End Date Dary Soria MD [address] [place] [address] PCP - General Internal Medicine 04/19/23 Angeline Sawyer MD [address] [place] [address] Consulting Physician Obstetrics and Gynecology 05/09/22
--- OUTSIDE RECORDS SUMMARY | 2025-02-04 14:24 | XMS_ITS | Encounter Summary ---
Author Organization [facility] Address [address] [place] [address] Care Team Providers Care Goat Herder Name Role Phone Dary Soria MD Primary Care Provider [phone] Encounter Details Date Type Department Care Team (Late st Contact Info) Description 12/16/2024 Results Follow-Up [facility] Heart & Vascular Care [address] [place] [address] [address] [place] [address] Chinedu Pal MA Social History Tobacco Use Types Packs/Day Years Used Date Smoking Tobacco: Never Passive Smoke Exposure: Never Smokeless Tobacco: Never Comments Unknown Sex and Gender Information Value Date Recorded Sex Assigned at Not on file Legal Sex Female 1:39 PM CDT Gender Identity Not on file Sexual Orientation Not on file documented as of this encounter Plan of Treatment Upcoming Encounters Date Type Department Care Team (Late st Contact Info) Description 04/29/2025 11:30 AM CDT Office Visit [facility] [address] [place] [address] [address] [place] [address] Cristian Palacios MD [address] [place] [address] [address] [place] [phone] documented as of this encounter Visit Diagnoses Not on filedocumented in this encounter Care Teams Goat Herder Relationship Specialty Start Date End Date Dary Soria MD [address] [facility] [address], [facility] [address] [place] [address] PCP - General Internal Medicine 11/25/24 documented as of this encounter
--- OUTSIDE RECORDS SUMMARY | 2025-02-04 14:24 | XMS_ITS | Clinical Summary ---
Author Organization [facility] Address [address] [place] [address] Phone Care Team Providers Care Install Technician Name Role Phone Rosa Loredo MD Primary Care Provider Unavaila ble Allergies Active Allergy Reactions Criticality Noted Date [...] 08/03/2021 Active fluticasone propionate (FLONASE) 50 mcg/spray Yeaddiss, Suspension nasal inhaler 09/08/2021 Active cephALEXin (KEFLEX) [...] Encounters Date Type Department Care Team Description 01/20/2025 External Device Data [facility] ABSTRACTION Provider, Abstract 01/14/2025 External Device Data [facility] Provider, Abstract 01/13/2025 External Device Data [facility] Provider, Abstract 11/25/2024 External Device Data [facility]STRACTION Provider, [...] 1:28 PM CDT Height 170.2 cm (5' 7) 05/09/2023 2:25 PM CDT Body Mass Index 27.25 05/09/2023 2:25 PM CDT Plan of Treatment Upcoming Encounters Date Type Department Care Team (Late st Contact Info) Description 05/06/2025 1:15 PM CDT Office Visit [facility] Gastroenterology [address] [place] [address] Zohaib Shrestha MD [address] [place] [address] Health Maintenance Due Date Last Done Comments [...] Shrestha MD - 04/14/2022 11:58 AM CDT [facility] Endoscopy Patient Name: Suyapa Macias Procedure [...] signed electronically. Number of Addenda: [phone] [place]; [place] [address] Zohaib Shrestha MD GI PROCEDURE ORDERABLES Final Result from Last 3 Months or Most Recently Relevant to Health Maintenance [place] [address] [address] Advance Directives For more information, please contact: [phone] * Full Code (Latest Code Status on File) Date Activated Date Inactivated Comments 04/14/2022 10:19 AM 04/14/2022 2:30 PM Care Teams Install Technician Relationship Specialty Start Date End Date Rosa Loredo MD PCP - General Internal Medicine 10/07/21
--- OUTSIDE RECORDS SUMMARY | 2025-02-04 14:24 | XMS_ITS | Clinical Summary ---
Author Organization [facility] Address [address] [facility] [place] [address] Care Team Providers Care Commanding Officer Homicide Squad Name Role Phone Dary Soria MD Primary Care Provider [phone] Source Comments [facility],non-owned Affiliates and Associated Physician Practices is amultiple site organization consisting of ambulatory clinics and hospital sitesin [place], [place], [place] and [place]. This disclosure is being madepursuant to the Care Everywhere program and may not contain all information available regarding this patient. Last updated 18.[facility] Allergies Active Allergy Reactions Criticality Noted Date [...] document. Alwaysverify current medications with the patient. acetaminophen (Tylenol) 500 MG tablet Take 800 mg by mouth every 6 hours as needed Active alendronate (Fosamax) 70 MG tablet 1 (one) tablet 4 Active cephalexin (Keflex) 500 MG capsule TAKE 1 CAPSULE BY MOUTH WITHIN AN HOUR OF INTERCOURSE Active estradiol (Vagifem) 10 MCG vaginal tablet Insert one tablet into vagina twice weekly 4 Active fluticasone propionate (Flonase) 50 MCG/ACT nasal spray [place] 1 (one) spray into the nose 2 times daily 3 Active loratadine-pseu doephedrine 12hr (Claritin-D 12 Hour) 5-120 MG tablet Take 1 mg by mouth Active Active Problems Problem Noted Date Diagnosed Date Dizziness and giddiness 11/26/2024 Chest pain 11/26/2024 Osteoarthritis 11/26/2024 Encounters Date Type Department Care Team Description 12/16/2024 Results Follow-Up [facility] [address] [place] [address] Chinedu Pal MA 12/04/2024 8:30 AM CDT Hospital Encounter [facility] [address] [place] [address], [address] [address] Cristian Palacios MD Discharge Disposition: Home or Self Care 12/04/2024 8:30 AM CDT Hospital Encounter [facility] [address], [address] [address] Cristian Palacios MD Discharge Disposition: Home or Self Care 11/26/2024 9:30 AM CDT Office Visit [facility] [address] [place] [id number] Cristian Palacios MD Chest pain, unspecified type (Primary Dx); Dizziness and giddiness; Osteoarthritis, unspecified osteoarthritis type, unspecified site; Dyslipidemia; Overweight; Abnormal ECG 11/24/2024 Telephone [facility] [address] [place] [address] [address] [place] [address] Mohan adkins [facility] Heart Scheduling from Last 3 Months Social History Tobacco Use Types Packs/Day Years Used Date Smoking Tobacco: Never Passive Smoke Exposure: Never Smokeless Tobacco: Never Tobacco Cessation:Counseling Given: No Comments Unknown Sex and Gender Information Value [...] 10:00 AM CDT Height 170.2 cm (5' 7) 11/26/2024 10:0 0 AM CDT Body Mass Index 27.38 11/26/2024 10:00 AM CDT Plan of Treatment Upcoming Encounters Date Type Department Care Team (Late st Contact Info) Description 04/29/2025 11:30 AM CDT Office Visit [facility] [address] [place] [address] [address] [place] [address] Cristian Palacios MD [address] [place] [address] [address] [place] [address] Health Maintenance Due Date Last Done Comments COLOGUARD (AGES 45-75) - COL ON CA SCREENING 1965 COLON MONITORING 1965 COLONOSCOPY - COLON CA SCREENING 1964 CT COLONOGRAPHY - COLON CA SCREENING 1965 Colorectal Cancer Screening 1965 FIT - COLON CA SCREENING 1965 FLEX SIG - COLON CA SCREENING 1964 LIPID TESTING 1965 HIV SCREENING 1979 HEPATITIS C SCREENING 04/07/1982 DTAP/TDAP/TD VACCINES (1 - Tdap) 1983 PNEUMOCOCCAL VACCINE 50+ (1 of 1 - PCV) 2014 ZOSTER VACCINE (1 of 2) 2014 COVID-19 VACCINE (1 - 2023-2 5 season) 2024 DEPRESSION SCREENING 08/27/2024 PAP SMEAR 11/22/2024 11/22/2021 SCREENING FOR DIABETES 11/26/2024 INFLUENZA VACCINE (Season [...] Procedure Name Priority Date/Time Associated Diagnosis Comments NM MYOCARD PERF REST STRESS Routine 12/04/2024 10:14 AM CDT Chest pain, unspecified type STRESS TEST Routine 12/04/2024 9:37 AM CDT Chest pain, unspecified type EKG 12-LEAD Routine 11/26/2024 10:03 AM CDT Dizziness and giddiness from Last 3 Months Results * NM MYOCARD PERF REST STRESS (12/04/2024 10:14 AM CDT) Anatomical Region Laterality Modality Chest Nuclear Digisoni cs 12/04/2024 8:19 AM CDT Narrative Procedure Note Monika Garcia DO - 12/05/2024 [address] [facility] [place] [address] [facility]fusion Scan Report Pat.Name: SUYAPA OLGUIN Pat.ID: [id number] St.Date: 12/04/2024 Refer.MD: Joaquina Soria Exam Time: 8:19:00 AM Study Type:Nuclear Myocardial Perfusion Scan Weight: 79.09kg Age: 8 1965,59Y Sex: FEMALE Sonogrphr: Cody Belle [facility] Reason for Study: Chest pain, Abnormal EKG Procedures: Exercise Perfusion Scan, Gated Stress Visit ID: [id number] Risk Factors:Hypercholesterolemia Clinical Symptoms:Chest pain Medications:Fosamax, Estradiol, Flonase ++++++++++++++++++++++++++++++++++++ SUMMARY: ++++++++++++++++++++++++++++++++++++ FINDINGS: Myocardial perfusion imaging reveals normal distribution of the radiopharmaceutical isotope during the stress and rest imaging sets. Left ventricular cavity size appears normal in both imaging sets. Gated SPECT images reveal normal LV systolic function with a calculated ejection fraction of 73%. SUMMARY: 1. Normal myocardial perfusion study without evidence of ischemia. 2. Gated SPECT images demonstrate normal LV systolic function. ++++++++++++++++++++++++++++++++++++ STRESS: ++++++++++++++++++++++++++++++++++++ Baseline Vital Signs: Atropine 0 Stress Test Results: Target HR 136 Symptoms and Complications: Signed 12/04/2024 5:57:00 PM Monika Garcia DO us Cristian Palacios MD NM ORDERABLES Edited * STRESS TEST Treadmill (12/04/2024 9:37 AM CDT) Anatomical Region Laterality Modality Cardiac Electrop hysiology 12/04/2024 8:30 AM CDT Narrative 12/04/2024 5:47 PM CDT Patient Info Name: Suyapa Stevens Age: 59 years : 1965 Gender: Female Ht: 67 in Wt: 174 lb BSA: 1.95 m2 HR: 52 bpm BP: 117 / 75 mmHg Heart Rhythm: Bradycardia Exam Date: 12/04/2024 8:30 AM Patient Status: O/P Study Site: [facility] Primary Location: [facility] EStudy Info Exam Type: STRESS TEST Indications R07.9 - Chest pain, unspecified type Procedure(s) * Treadmill stress test was performed. Staff Referring Physician: Cristian Palacios Ordering Provider: Cristian Palacios Attending Physician: Cristian Palacios Nurse: Cody Onofre Exercise Physician: Monika Garcia Stress Staff: Cody Vaz Summary * Indication for the stress test, CHEST PAIN. * A peak heart rate of 137 bpm was achieved, 86%PMHR. Walked 7 minutes 30 seconds. * Normal blood pressure response. * No chest discomfort with stress test. * Normal ST segment response to stress. * No ischemic EKG changes during nuclear treadmill stress. * Nuclear test results to follow. Protocol: Rip Stress ECG Details Stage: Rest Duration (min): --- Speed (mph): --- Grade (%): --- HR (bpm): 52 SBP (mmHg): 117 DBP (mmHg): 75 METS: --- Symptoms: None Stage: 1 Duration (min): 3 min : 0 sec Speed (mph): 1.7 Grade (%): 10 HR (bpm): 105 SBP (mmHg): 142 DBP (mmHg): 76 METS: --- Symptoms: None Stage: 2 Duration (min): 3 min : 0 sec Speed (mph): 2.5 Grade (%): 12 HR (bpm): 126 SBP (mmHg): 166 DBP (mmHg): 76 METS: --- Symptoms: None Stage: 3 Duration (min): 1 min : 31 sec Speed (mph): 3.4 Grade (%): 14 HR (bpm): 137 SBP (mmHg): 148 DBP (mmHg): 74 METS: --- Symptoms: Fatigue Comments: PEAK Stage: Recovery Duration (min): 2 min : 0 sec Speed (mph): --- Grade (%): --- HR (bpm): 85 SBP (mmHg): 141 DBP (mmHg): 78 METS: --- Symptoms: None Target HR Summary: Test terminated after reaching target heart rate (85% max predicted) BP Response: Normal blood pressure response Cardiac Symptoms: None Resting ECG Sinus bradycardia at rest. Stress ECG A peak heart rate of 137 bpm was achieved, 86%PMHR. Walked 7 minutes 30 seconds. The patient's peak stress blood pressure was 166/76 mmHg. Stress ECG is negative for ischemia. Termination Reason: Leg fatigue Total Time: 7 min : 31 sec Exercise Response : Angina Score: None : Total METS: 54.0 : Functional Capacity: good Heart Rate Response : Resting HR (bpm): 54 : Peak HR (bpm): 137 : Max Predicted HR (bpm): 160 : % of Max Predicted HR: 86 % : Target HR (bpm): 136 Blood Pressure Response : Rest Sys. BP (mmHg): 117 : Rest Diast. BP (mmHg): 75 : Peak Sys. BP (mmHg): 166 : Peak Miguel. BP (mmHg): 76 : Max Rate Pressure Product (bpm*mmHg): 22,742 Report Signatures Finalized by Monika Garcia on 12/04/2024 05:47 PM Procedure Note Monika Garcia, DO - 12/04/2024 Patient Info Name: Suyapa Stevens Age: 59 years : 1965 Gender: Female Ht: 67 in Wt: 174 lb BSA: 1.95 m2 HR: 52 bpm BP: 117 / 75 mmHg Heart Rhythm: Bradycardia Exam Date: 12/04/2024 8:30 AM Patient Status: O/P Study Site: [facility] Primary Location: [facility] EStudy Info Exam Type: STRESS TEST Indications R07.9 - Chest pain, unspecified type Procedure(s) * Treadmill stress test was performed. Staff Referring Physician: Cristian Palacios Ordering Provider: Cristian Palacios Attending Physician: Cristian Palacios Nurse: Cody Onofre Exercise Physician: Monika Garcia Stress Staff: Cody Vaz Summary * Indication for the stress test, CHEST PAIN. * A peak heart rate of 137 bpm was achieved, 86%PMHR. Walked 7 [id number] seconds. * Normal blood pressure response. * No chest discomfort with stress test. * Normal ST segment response to stress. * No ischemic EKG changes during nuclear treadmill stress. * Nuclear test results to follow. Protocol: Rip Stress ECG Details Stage: Rest Duration (min): --- Speed (mph): --- Grade (%): --- HR (bpm): 52 SBP (mmHg): 117 DBP (mmHg): 75 METS: --- Symptoms: None Stage: 1 Duration (min): 3 min : 0 sec Speed (mph): 1.7 Grade (%): 10 HR (bpm): 105 SBP (mmHg): 142 DBP (mmHg): 76 METS: --- Symptoms: None Stage: 2 Duration (min): 3 min : 0 sec Speed (mph): 2.5 Grade (%): 12 HR (bpm): 126 SBP (mmHg): 166 DBP (mmHg): 76 METS: --- Symptoms: None Stage: 3 Duration (min): 1 min : 31 sec Speed (mph): 3.4 Grade (%): 14 HR (bpm): 137 SBP (mmHg): 148 DBP (mmHg): 74 METS: --- Symptoms: Fatigue Comments: PEAK Stage: Recovery Duration (min): 2 min : 0 sec Speed (mph): --- Grade (%): --- HR (bpm): 85 SBP (mmHg): 141 DBP (mmHg): 78 METS: --- Symptoms: None Target HR Summary: Test terminated after reaching target heart rate(85% max predicted) BP Response: Normal blood pressure response Cardiac Symptoms: None Resting ECG Sinus bradycardia at rest. Stress ECG A peak heart rate of 137 bpm was achieved, 86%PMHR. Walked 7 [id number] seconds. The patient's peak stress blood pressure was 166/76 mmHg. StressECG is negative for ischemia. Termination Reason: Leg fatigue Total Time: 7 min : 31 sec Exercise Response : Angina Score: None : Total METS: 54.0 : Functional Capacity: good Heart Rate Response : Resting HR (bpm): 54 : Peak HR (bpm): 137 : Max Predicted HR (bpm): 160 : % of Max Predicted HR: 86 % : Target HR (bpm): 136 Blood Pressure Response : Rest Sys. BP (mmHg): 117 : Rest Diast. BP (mmHg): 75 : Peak Sys. BP (mmHg): 166 : Peak Miguel. BP (mmHg): 76 : Max Rate Pressure Product (bpm*mmHg): 22,742 Report Signatures Finalized by Monika Garcia on 12/04/2024 05:47 PM us Cristian Palacios MD [facility] Final R esult * EKG 12-LEAD (11/26/2024 10:03 AM CDT) Ventricular Rate 64 BPM [facility] Atrial Rate 64 BPM [facility] P-R Interval 146 ms [facility] QRS Duration ms 96 ms [facility] Q-T Interval ms 366 ms [facility] QTC Calculation (Bezet) 377 ms [facility] Calculated P [place] 54 degrees [facility] Calculated R [place] -43 degrees [facility] Calculated T [place] 4 degrees [facility] Interpretation EKG NORMAL SINUS RHYTHM LEFT AXIS DEVIATION LOW VOLTAGE QRS POOR R WAVE PROGRESSION NONSPECIFIC ST AND T WAVE ABNORMALITY ABNORMAL ECG Confirmed by Suzanne FULLER, Cristian ([id number]) on 11/26/2024 12:51:02 PM [facility] 11/26/2024 10:0 3 AM CDT 11/26/2024 12:51 PM CDT us Cristian Palacios MD ECG ORDERABLES Edited Result - Final [facility] MUSE from Last 3 Months Insurance [facility] Care Teams Commanding Officer Homicide Squad Relationship Specialty Start Date End Date Dary Soria MD [address] [facility] [address], [place] [id number] [place] [address] PCP - General Internal Medicine 11/25/24
--- OUTSIDE RECORDS SUMMARY | 2025-02-04 14:24 | XMS_ITS | Encounter Summary ---
Author Organization [facility] Healthcare Address [address] [place] [address] Care Team Providers Care Hospital Pharmacy Director Name Role Phone Angeline Sawyer MD Unavailable [phone] Dary Soria MD Primary Care Provider Encounter Details Date Type Department Care Team (Late st Contact Info) Description 12/08/2024 Results Follow-Up [facility] [address] [address] Angeline Sawyer MD [address] [address] High Risk HPV DNA Detection with Genotyping (Molecular component), ThinPrep processing (Molecular component), Pap and High Risk HPV and Genotyping (Cytology Component) Social History Tobacco Use Types Packs/Day Years [...] on filedocumented in this encounter Care Teams Hospital Pharmacy Director Relationship Specialty Start Date End Date Dary Soria MD [address] [place], [place] [id number] PCP - General Internal Medicine 04/19/23 Angeline Sawyer MD [address] [place] [address] Consulting Physician Obstetrics and Gynecology 05/09/22 documented as of this encounter
--- OUTSIDE RECORDS SUMMARY | 2025-02-04 15:16 | XMS_ITS | Clinical Summary ---
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 Immunizations - Influenza: Recommend annually - Td/Tdap: UTD 07/2021, repeat 07/2031 - PCV20: Discuss at 64 - Shingles: UTD x 2 2020 - COVID: Recommended Assessment & Plan (10/23/2023 12:43 PM STORY TELLER): General - HbA1c: 5.4% 03/2023, repeat annually - Lipid panel: LDL 127 03/2023, repeat annually - ASCVD score: 2.2% low risk - DEXA scan: UTD 04/2022, repeat 04/2024 Cancer - Colonoscopy: UTD 03/2022, repeat 03/2027 - Mammogram: UTD 05/2023, repeat 05/2024 - Pap: UTD 10/2021, repeat per [employer] Fleet Supervisor Immunizations - Influenza: Recommended - Td/Tdap: UTD 07/2021, repeat 07/2031 - PCV20: Discuss at 64 - Shingles: UTD x 2 2020 - COVID: Recommended Primary osteoarthritis involving multiple joints 10/23/2023 Assessment & Plan (04/21/2024 3:17 PM CDT): Considering R knee replacement. Assessment & Plan (10/23/2023 12:43 PM STORY TELLER): Chronic, does use NSAIDs occasionally. Discussed risks, benefits, and alternatives. Prediabetes 08/04/2022 Assessment & Plan (04/21/2024 3:16 PM CDT): A1c normal on last check. Anxiety 08/04/2022 Assessment & Plan (04/21/2024 3:16 PM CDT): Increasing anxiety lately about memory and health. Reassurance provided today. Consider SSRI in future. Assessment & Plan (08/04/2022 6:18 PM STORY TELLER): Large amount of life stressors Overwhelmed Discussed [...] regimen Assessment & Plan (10/23/2023 12:41 PM STORY TELLER): Continues on Fosamax 70 mg daily. - Continue current regimen Assessment & Plan (08/04/2022 6:22 PM STORY TELLER): Noted on Dexa 2021 Fosamax Age-related nuclear [...] sensation. Assessment & Plan (10/23/2023 12:41 PM STORY TELLER): Follows with ENT and GI, has been [...] 40mg twice baeza before breakfast and supper retirement Avoid eating 4 hours before lying down. [...] BID Assessment & Plan (10/23/2023 12:41 PM STORY TELLER): See above, follows with Dr. Shrestha. - Continue pantoprazole 40 mg BID Assessment & Plan (08/04/2022 6:23 PM STORY TELLER): F/b GI Zohaib Chery. , reviewed note [...] 40mg twice baeza before breakfast and supper retirement Avoid eating 4 hours before lying down. [...] cancer. Assessment & Plan (10/03/2021 11:04 AM STORY TELLER): Followed by her PCP. Chronic and stable. She will continue taking her Pepcid for acid reflux control. Assessment & Plan (09/05/2021 9:54 AM STORY TELLER): Followed by her PCP and controlled on her Pepcid. Recommend that she continue her Pepcid. Scoliosis of thoracic spine 06/30/2021 Overview (08/04/2022): F/b Dr. Ramey Wanting to start PT for her back Assessment & Plan (04/21/2024 3:17 PM CDT): Kelley. Assessment & Plan (08/04/2022 6:20 PM STORY TELLER): F/b Dr. Ramey Wanting to start PT for her back Environmental allergies 06/30/2021 Assessment & Plan (04/21/2024 3:16 PM CDT): Kelley. Resolved Problems Problem Noted Date Diagnosed Date Resolved Date Folliculitis 10/23/2023 04/21/2024 Assessment & Plan (10/23/2023 12:42 PM STORY TELLER): Area of purple-red discoloration at site of [...] started. Assessment & Plan (08/04/2022 6:24 PM STORY TELLER): H. pylori infection which was treated in 2019 with amoxicillin, clarithromycin, PPI. However, subsequent breath test was positive. There were plans for Pylera, but the patient never completed the therapy as the Covid pandemic started. Health care maintenance 04/18/2022 0202/2024 Overview (08/04/2022): Images from the original note were not included. 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 Follow up 3-4 weeks Warning [...] (08/03/2021): Added automatically from request for surgery [id number] Arthritis 06/30/2021 10/23/2023 Assessment & Plan (10/03/2021 11:04 AM STORY TELLER): Followed by her PCP. Chronic and stable. She is controlled with her Tylenol and Voltaren gel and recommended that she continue this as needed. Assessment & Plan (09/05/2021 9:55 AM STORY TELLER): Followed by her PCP and controlled with Tylenol and Voltaren gel. Recommend that she continue the Tylenol and Voltaren gel for symptomatic relief of arthritis. Chronic UTI 06/30/2021 04/23/2023 Varicose veins of left lower extremity with pain 06/30/2021 10/23/2023 Assessment & Plan (10/03/2021 11:03 AM STORY TELLER): Patient does not have any varicose veins [...] needed. Assessment & Plan (09/05/2021 9:56 AM STORY TELLER): Patient has spider veins on her bilateral [...] Type Department Care Team Description 02/04/2025 Telephone [facility] Primary Care at [address] [address] Dary Soria MD Medical Question/Miscellaneou s 01/01/2025 Telephone [facility] Primary Care at [address] [address] Dary Soria MD Medical Records Request 12/26/2024 Results Follow-Up [facility] Primary Care at [address] [place] [address] Dary Soria MD Hepatic function panel 12/25/2024 3:12 PM CDT - 12/25/2024 11:59 PM CDT Hospital Encounter [address] [address] Discharge Disposition: Discharge to home or self care 12/25/2024 2:45 PM CDT Lab [facility] Primary Care at [place] [address] [place] [phone] 12/25/2024 2:00 PM CDT Office Visit 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, [address] [place] [address] Manolo Garcia, MIRANDA Hordeolum internum of right upper eyelid (Primary Dx) 12/18/2024 11:40 AM CDT Office Visit [facility] Otolaryngology 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, [address] [place] [address] Conductive hearing loss of left ear with unrestricted hearing of right ear (Primary Dx) 12/18/2024 Telephone [facility] Ophthalmology [address], [address] [place] [address] Manolo Garcia, OD 12/16/2024 1:00 PM CDT Procedure visit [facility] Otolaryngology [address]th [place] [address] [place] [address] Colleen Patel Au.D. Dizziness and giddiness 12/08/2024 Results Follow-Up [facility] Medical [facility] [address] [place] [address] Angeline Sawyer MD High Risk HPV DNA Detection with Genotyping (Molecular component), ThinPrep processing (Molecular component), Pap and High Risk HPV and Genotyping (Cytology Component) 12/05/2024 3:44 PM CDT - 12/05/2024 11:59 PM CDT Hospital Encounter [facility] [address] [place] [address] Screening for malignant neoplasm of the cervix; Screening for HPV (human papillomavirus) Discharge Disposition: Discharge to home or self care 12/05/2024 10:30 AM CDT Office Visit [facility] [address], [place] [address] Angeline Sawyer MD Encounter for well woman exam with routine gynecological exam (Primary Dx); Screening for malignant neoplasm of the cervix; Screening for HPV (human papillomavirus); Postmenopausal atrophic vaginitis; Age-related osteoporosis without current pathological fracture 12/04/2024 Telephone [facility]) - [facility] ENT [address] [place] [address] [place] [address] Rondon, Erin, 12/03/2024 Orders Only [facility] Otolaryngology [address], [address] [place] [address] Abby Chew RN Dizziness and giddiness (Primary Dx) 12/02/2024 11:00 AM CDT Office Visit [facility] Ophthalmology [address], [address] [place] [address] Manolo Garcia, OD Hordeolum internum of right upper eyelid (Primary Dx); Age-related nuclear cataract of both eyes 12/02/2024 Telephone [facility] Ophthalmology [address] [place] [address] Dion Pinto MD new symptoms 12/01/2024 1:00 PM CDT Procedure visit [facility] Otolaryngology [address] [place] [address] [place] [address] Hungarian, Colleen Janna, Au.D. 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 11/30/2024 4:00 PM CDT Office Visit [facility] at [address] [address] Monika Angel NP Hordeolum internum of right upper eyelid (Primary Dx); Contusion of right great toe without damage to nail, initial encounter 11/10/2024 9:00 AM CDT Procedure visit [facility] ENT [address] [facility] [address] [place] [address] Cody Ho MD Globus sensation [...] HEPATITIS C ANTIBODY Routine 08/03/2021 11:57 AM STORY TELLER Need for hepatitis C screening test from Last 3 Months or Most Recently Relevant to Health Maintenance Results * Hepatic function panel (12/25/2024 2:45 PM CDT) Bilirubin, total 0.7 0.1 - 1.2 mg/dL Bilirubin, direct 0.2 0.1 - 0.3 mg/dL [facility] Protein, pl 7.4 6.5 - 8.5 g/dL [facility] Albumin 4.4 3.5 - 5.0 g/dL [facility] Alk phos 66 40 - 130 Units/L [facility] ALT 41 7 - 45 Units/L [facility] AST 25 10 - 45 Units/L [facility] Blood 12/25/2024 2:45 PM CDT 12/25/2024 6:55 PM CDT us Dary Soria MD LAB BLOOD ORDERABLES F inal Result [facility] [address] Department [place] [address] * [employer] Results (12/18/2024 10:59 AM CDT) Provider Scanning AUDIOLOGY SERVICES ORDERABLES Final Result * Pap and High Risk HPV and Genotyping (Cytology Component) (12/05/2024 1:58 PM CDT) Thin prep (Pap test) 12/05/2024 1:58 PM CDT 12/08/2024 8:30 AM CDT Narrative PATHOLOGY [facility] - 12/10/2024 8:44 AM CDT EPIC results best viewed via link to PDF [address] [address] Tele: Merlyn Morales MD - Produce Department Supervisor CYTOLOGY REPORT Note to Patients: This report [...] the details. Patient Name: SUYAPA AUGUSTIN Address: [address] [place] [address] Gender: F : 1965 (Age: 59) Service: Location: [facility] : [id number] [facility] #: [id number] Patient Type: [facility] SPECIMEN Taken: 12/05/2024 Reported: 12/10/2024 [...] part or completely in the following laboratories: [facility], [address] [place] [address], [address] [place] [address]. Angeline Sawyer MD LAB CYTOLOGY ORDERABLES Rhonda l Result PATHOLOGY [facility] Laboratory Receiving [address] [place] [address] * ThinPrep processing (Molecular component) (12/05/2024 12:00 PM CDT) ThinPrep processing (Molecular component) Specimen received for processing. Endocervical 12/05/2024 12:0 0 PM CDT 12/05/2024 4:49 PM CDT Angeline Sawyer MD LAB BODY FLUIDS AND STOOLS O RDERABLES Final Result Performing Organization Address City/[facility]/ZIP Co de Phone Number [facility] [address] Department [place] [address] * High Risk HPV DNA Detection with Genotyping (Molecular component) (12/05/2024 12:00 PM CDT) HPV HR 16 Not Detected Not Detected HPV HR 18 Not Detected Not Detected [facility] HPV HR Non 16/18 Not Detected Not Detected [facility] Comment: Interpretive Data Nucleic acid amplification for [...] this test have been verified by the [facility]. Correlate with separately reported cytology results, as applicable. Interpretive data last revised 23 Endocervical 12/05/2024 12:0 0 PM CDT 12/05/2024 4:49 PM CDT Narrative [facility] - 12/08/2024 6:06 PM CDT Clinical history and diagnosis->none Number of vials->1 Testing type->Screening Last menstrual period (date if known)->none Previous positive HPV history?->No Previous negative PAP?->Yes Angeline Sawyer MD LAB BODY FLUIDS AND STOOLS O RDERABLES Final Result Performing Organization Address City/[facility]/ZIP Co de Phone Number [facility] [address] [place] [address] * Diagnostic Mammogram Bilateral W Jah (06/26/2024 10:33 AM CDT) Anatomical Region Laterality Modality Breast Bilateral Mammography 06/26/2024 3:38 PM CDT Addenda Addendum by Allie Atkins MD on 07/02/2024 9:41 AM STORY TELLER ADDENDUM: THE MAMMOGRAPHIC FINDINGS ARE DESCRIBED BELOW. [...] Allie Atkins M.D. LD: LILLIANA Report ID: [id number] Reading Location: [facility] Angeline Sawyer MD IMG MAMMO PROCEDURES Edited Result - Final * (ABNORMAL) COLONOSCOPY (04/14/2022) Scribed Colonoscopy Abnormal Generic External Data Provider [facility] Final Result * Hepatitis C antibody (08/03/2021 11:57 AM STORY TELLER) Hep C Ab Nonreactive Nonreactive [facility] Comment: Interpretive Data Nonreactive: Antibodies to HCV [...] on 2019. Blood 08/03/2021 11:5 7 AM STORY TELLER 08/03/2021 4:34 PM STORY TELLER us Ana Carrillo DNP LAB MICROBIOLOGY - GENERAL O RDERABLES Final Result [facility] [address] [place] [address] from Last 3 Months or Most Recently Relevant to Health Maintenance Insurance Manifest CLAIMS Manifest CLAIMS Care Teams Ict Help Desk Officer Relationship Specialty Start Date End Date Dary Soria MD [address] [place] [address] PCP - General Internal Medicine 04/19/23 Angeline Sawyer MD [address] [place] [address] Consulting Physician Obstetrics and Gynecology 05/09/22
--- OUTSIDE RECORDS SUMMARY | 2025-02-04 15:16 | XMS_ITS | Encounter Summary ---
Author Organization [facility] Healthcare Address [address] [place] [address] Care Team Providers Care Bank Appraiser Name Role Phone Angeline Sawyer MD Unavailable [phone] Dary Soria MD Primary Care Provider Encounter Details Date Type Department Care Team (Late st Contact Info) Description 12/08/2024 Results Follow-Up [facility] [address] [address] Angeline Sawyer MD [address] [address] High Risk HPV DNA Detection [...] on filedocumented in this encounter Care Teams Bank Appraiser Relationship Specialty Start Date End Date Dary Soria MD [address] [place], [place] [id number] PCP - General Internal Medicine 04/19/23 Angeline Sawyer MD [address] [place] [address] Consulting Physician Obstetrics and Gynecology 05/09/22 documented as of this encounter
--- OUTSIDE RECORDS SUMMARY | 2025-02-04 15:16 | XMS_ITS | Clinical Summary ---
Author Organization [facility] Address [address] [place] [address] Phone Care Team Providers Care Radio Installer Automobile Name Role Phone Rosa Loredo MD Primary [...] 08/03/2021 Active fluticasone propionate (FLONASE) 50 mcg/spray [place], Suspension nasal inhaler 09/08/2021 Active cephALEXin (KEFLEX) [...] Description 05/06/2025 1:15 PM CDT Office Visit [facility] Gastroenterology [address] [place] [address] Zohaib Shrestha MD [address] [place] [address] Health Maintenance Due Date Last Done Comments [...] Shrestha MD - 04/14/2022 11:58 AM CDT [facility] Endoscopy Patient Name: Suyapa Macias Procedure [...] electronically. Number of Addenda: [phone] [facility] [place] [address] Zohaib Shrestha MD GI PROCEDURE ORDERABLES Final Result from Last 3 Months or Most Recently Relevant to Health Maintenance [place] [place] [address] Advance Directives For more information, please contact: [phone] * Full Code (Latest Code Status on File) Date Activated Date Inactivated Comments 04/14/2022 10:19 AM 04/14/2022 2:30 PM Care Teams Radio Installer Automobile Relationship Specialty Start Date End Date Rosa Loredo MD PCP - General Internal Medicine 10/07/21
--- OUTSIDE RECORDS SUMMARY | 2025-02-04 15:16 | XMS_ITS | Referral Summary ---
Author Organization [facility] Address [address] [place] [address] Phone Care Team Providers Care Gauge And Weigh Machine Adjuster Name Role Phone Angeline Sawyer MD Unavailable [phone] Dary Soria MD Primary Care Provider Encounters Date Type Department Care Team Description 02/04/2025 Telephone [facility] Primary Care at [facility] [address] [place] [address] Dary Soria MD Medical Question/Miscellaneou s 01/01/2025 Telephone [facility] Medical [facility] Primary Care at [facility] [address] [place] [address] Dary Soria MD Medical Records Request 12/26/2024 Results Follow-Up [facility] Primary Care at [facility] [address] [place] [address] Dary Soria MD Hepatic function panel 12/25/2024 3:12 PM CDT - 12/25/2024 11:59 PM CDT Hospital Encounter [facility] [address] [place] [address] Discharge Disposition: Discharge to home or self care 12/25/2024 2:45 PM CDT Lab [facility] Medical [facility] Primary Care at [facility] [address] [place] [address] 12/25/2024 2:00 PM CDT Office Visit [facility] Primary Care at [facility] [address] [place] [address] Dary Soria MD Elevated liver enzymes (Primary Dx); Onychomycosis; 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 2nd [address], [address] [place] [address] Manolo Garcia, OD Hordeolum internum of right upper eyelid (Primary Dx) 12/18/2024 Telephone [facility] Ophthalmology [address], [address] [place] [address] Manolo Garcia, OD 12/18/2024 11:00 AM CDT Procedure visit [facility] Otolaryngology [address], [address] [place] [address] Conductive hearing loss of left ear with unrestricted hearing of right ear (Primary Dx) 12/18/2024 11:40 AM CDT Office Visit [facility] Otolaryngology 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 11th [place] [address] [place] [address] Colleen Patel Au.D. Dizziness and giddiness 12/08/2024 Results Follow-Up [facility] [address] [facility] [address] [place] [address] Angeline Sawyer MD High Risk HPV DNA Detection with Genotyping (Molecular component), ThinPrep processing (Molecular component), Pap and High Risk HPV and Genotyping (Cytology Component) 12/05/2024 3:44 PM CDT - 12/05/2024 11:59 PM CDT Hospital Encounter [facility] [address] [place] [address] Screening for malignant neoplasm of the cervix; Screening for HPV (human papillomavirus) Discharge Disposition: Discharge to home or self care 12/05/2024 10:30 AM CDT Office Visit [facility] [address], [place] [address] Angeline Sawyer MD Encounter for well woman exam with routine gynecological exam (Primary Dx); Screening for malignant neoplasm of the cervix; Screening for HPV (human papillomavirus); Postmenopausal atrophic vaginitis; Age-related osteoporosis without current pathological fracture 12/04/2024 Telephone [facility]) - [facility] ENT [address] [facility] 11th [place] [address] [place] [address] Erin Rondon MS 12/03/2024 Orders Only [facility] Otolaryngology [address], [address] [place] [address] Abby Chew RN Dizziness and giddiness (Primary Dx) 12/02/2024 11:00 AM CDT Office Visit [facility] Ophthalmology [address] 2[address], [address] [place] [address] Manolo Garcia, OD Hordeolum internum of right upper eyelid (Primary Dx); Age-related nuclear cataract of both eyes 12/02/2024 Telephone [facility] Ophthalmology [address] [place] [address] Dion Pinto MD [facility] 12/01/2024 1:00 PM CDT Procedure visit [facility] Otolaryngology [address] [place] [address] 11th [place] [address] [place] [address] Colleen Sheikh Au.D. 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 11/30/2024 4:00 PM CDT Office Visit [facility] at [address] [address] Monika Angel NP Hordeolum internum of right upper eyelid (Primary Dx); Contusion of right great toe without damage to nail, initial encounter 11/10/2024 9:00 AM CDT Procedure visit [facility] E[facility] [address] [place] [address] Cody Ho MD Globus sensation [...] 05/2024 - Pap: UTD 10/2021, repeat per Preventive Medicine Specialist Immunizations - Influenza: Recommend annually - Td/Tdap: UTD 07/2021, repeat 07/2031 - PCV20: Discuss at 64 - Shingles: UTD x 2 2020 - COVID: Recommended Assessment & Plan (10/23/2023 12:43 PM ORDER DETAILER): General - HbA1c: 5.4% 03/2023, repeat annually - Lipid panel: LDL 127 03/2023, repeat annually - ASCVD score: 2.2% low risk - DEXA scan: UTD 04/2022, repeat 04/2024 Cancer - Colonoscopy: UTD 03/2022, repeat 03/2027 - Mammogram: UTD 05/2023, repeat 05/2024 - Pap: UTD 10/2021, repeat per Preventive Medicine Specialist Immunizations - Influenza: Recommended - Td/Tdap: UTD 07/2021, repeat 07/2031 - PCV20: Discuss at 64 - Shingles: UTD x 2 2020 - COVID: Recommended Primary osteoarthritis involving multiple joints 10/23/2023 Assessment & Plan (04/21/2024 3:17 PM CDT): Considering R knee replacement. Assessment & Plan (10/23/2023 12:43 PM ORDER DETAILER): Chronic, does use NSAIDs occasionally. Discussed risks, benefits, and alternatives. Prediabetes 08/04/2022 Assessment & Plan (04/21/2024 3:16 PM CDT): A1c normal on last check. Anxiety 08/04/2022 Assessment & Plan (04/21/2024 3:16 PM CDT): Increasing anxiety lately about memory and health. Reassurance provided today. Consider SSRI in future. Assessment & Plan (08/04/2022 6:18 PM ORDER DETAILER): Large amount of life stressors Overwhelmed Discussed [...] regimen Assessment & Plan (10/23/2023 12:41 PM ORDER DETAILER): Continues on Fosamax 70 mg daily. - Continue current regimen Assessment & Plan (08/04/2022 6:22 PM ORDER DETAILER): Noted on Dexa 2021 Fosamax Age-related nuclear [...] sensation. Assessment & Plan (10/23/2023 12:41 PM ORDER DETAILER): Follows with ENT and GI, has been [...] 40mg twice baeza before breakfast and supper detention Avoid eating 4 hours before lying down. [...] BID Assessment & Plan (10/23/2023 12:41 PM ORDER DETAILER): See above, follows with Dr. Shrestha. - Continue pantoprazole 40 mg BID Assessment & Plan (08/04/2022 6:23 PM ORDER DETAILER): F/b GI Zohaib Chery. , reviewed note [...] 40mg twice baeza before breakfast and supper detention Avoid eating 4 hours before lying down. [...] cancer. Assessment & Plan (10/03/2021 11:04 AM ORDER DETAILER): Followed by her PCP. Chronic and stable. She will continue taking her Pepcid for acid reflux control. Assessment & Plan (09/05/2021 9:54 AM ORDER DETAILER): Followed by her PCP and controlled on her Pepcid. Recommend that she continue her Pepcid. Scoliosis of thoracic spine 06/30/2021 Overview (08/04/2022): F/b Dr. Ramey Wanting to start PT for her back Assessment & Plan (04/21/2024 3:17 PM CDT): Stable. Assessment & Plan (08/04/2022 6:20 PM ORDER DETAILER): F/b Dr. Ramey Wanting to start PT for her back Environmental allergies 06/30/2021 Assessment & Plan (04/21/2024 3:16 PM CDT): Stable. Resolved Problems Problem Noted Date Diagnosed Date Resolved Date Folliculitis 10/23/2023 04/21/2024 Assessment & Plan (10/23/2023 12:42 PM ORDER DETAILER): Area of purple-red discoloration at site of [...] started. Assessment & Plan (08/04/2022 6:24 PM ORDER DETAILER): H. pylori infection which was treated in 2019 with amoxicillin, clarithromycin, PPI. However, subsequent breath test was positive. There were plans for Pylera, but the patient never completed the therapy as the Covid pandemic started. Health care maintenance 04/18/202209/28 Overview (08/04/2022): Images from the original note were not included. C scope 03/2022 completed at [facility], repeat due in 5 years 05/09/22 [...] placed) Assessment & Plan (08/04/2022 6:28 PM ORDER DETAILER): C scope 03/2022 completed at [facility], repeat due in 5 years 06/12/2022 [...] and peripheral heme without retinal breaks , resident services director 360 . Follow up 3-4 weeks Warning [...] (08/03/2021): Added automatically from request for surgery [id number] Arthritis 06/30/2021 10/23/2023 Assessment & Plan (10/03/2021 11:04 AM ORDER DETAILER): Followed by her PCP. Chronic and stable. She is controlled with her Tylenol and Voltaren gel and recommended that she continue this as needed. Assessment & Plan (09/05/2021 9:55 AM ORDER DETAILER): Followed by her PCP and controlled with Tylenol and Voltaren gel. Recommend that she continue the Tylenol and Voltaren gel for symptomatic relief of arthritis. Chronic UTI 06/30/2021 04/23/2023 Varicose veins of left lower extremity with pain 06/30/2021 10/23/2023 Assessment & Plan (10/03/2021 11:03 AM ORDER DETAILER): Patient does not have any varicose veins [...] needed. Assessment & Plan (09/05/2021 9:56 AM ORDER DETAILER): Patient has spider veins on her bilateral [...] HEPATITIS C ANTIBODY Routine 08/03/2021 11:57 AM ORDER DETAILER Need for hepatitis C screening test from Last 3 Months or Most Recently Relevant to Health Maintenance Results * Hepatic function panel (12/25/2024 2:45 PM CDT) Bilirubin, total 0.7 0.1 - 1.2 mg/dL Bilirubin, direct 0.2 0.1 - 0.3 mg/dL [facility] Protein, pl 7.4 6.5 - 8.5 g/dL [facility] Albumin 4.4 3.5 - 5.0 g/dL [facility] Alk phos 66 40 - 130 Units/L [facility] ALT 41 7 - 45 Units/L [facility] AST 25 10 - 45 Units/L [facility] Blood 12/25/2024 2:45 PM CDT 12/25/2024 6:55 PM CDT Dary Soria MD LAB BLOOD ORDERABLES F inal Result [place] [id number] Department [place] [address] * [facility] Results (12/18/2024 10:59 AM CDT) Provider Scanning AUDIOLOGY SERVICES ORDERABLES Final Result * Pap and High Risk HPV and Genotyping (Cytology Component) (12/05/2024 1:58 PM CDT) Thin prep (Pap test) 12/05/2024 1:58 PM CDT 12/08/2024 8:30 AM CDT Narrative PATHOLOGY [facility] - 12/10/2024 8:44 AM CDT EPIC results best viewed via link to PDF [place] [id number] [place], [place] [address] Tele: Merlyn Morales MD - Curb And Gutter Laborer CYTOLOGY REPORT Note to Patients: This [...] the details. Patient Name: SUYAPA AUGUSTIN Address: [address] [place] [address] Gender: F : 1965 (Age: 59) Service: Location: N : [id number] [facility] #: [id number] Patient Type: [facility] Taken: 12/05/2024 Reported: 12/10/2024 Physician(s): Angeline [...] part or completely in the following laboratories: [facility], [address], [place] [address] [facility], [address], [place] [address]. us Angeline Sawyer MD LAB CYTOLOGY ORDERABLES Rhonda l Result PATHOLOGY [facility] Laboratory Receiving [address] [place] [address] * ThinPrep processing (Molecular component) (12/05/2024 12:00 PM CDT) [facility] ThinPrep processing (Molecular component) Specimen received for processing. Endocervical 12/05/2024 12:0 0 PM CDT 12/05/2024 4:49 PM CDT Angeline Sawyer MD LAB BODY FLUIDS AND STOOLS O RDERABLES Final Result Performing Organization Address City/[facility]/ZIP Co de Phone Number [facility] [address] Department [place] [address] * High Risk HPV DNA Detection with Genotyping (Molecular component) (12/05/2024 12:00 PM CDT) [facility] HPV HR 16 Not Detected Not Detected HPV HR 18 Not Detected Not Detected [facility] HPV HR Non 16/18 Not Detected Not Detected [facility] Comment: Interpretive Data Nucleic acid amplification [...] this test have been verified by the [facility]. Correlate with separately reported cytology results, as applicable. Interpretive data last revised 23 Endocervical 12/05/2024 12:0 0 PM CDT 12/05/2024 4:49 PM CDT [facility]ative [facility] - 12/08/2024 6:06 PM CDT Clinical history and diagnosis->none Number of vials->1 Testing type->Screening Last menstrual period (date if known)->none Previous positive HPV history?->No Previous negative PAP?->Yes us Angeline Sawyer MD LAB BODY FLUIDS AND STOOLS O RDERABLES Final Result [facility] [address] [place] Department [place] [address] * Diagnostic Mammogram Bilateral W Jah (06/26/2024 10:33 AM CDT) Anatomical Region Laterality Modality Breast Bilateral Mammography 06/26/2024 3:38 PM CDT Addenda Addendum by Allie Atkins MD on 07/02/2024 9:41 AM ORDER DETAILER ADDENDUM: THE MAMMOGRAPHIC FINDINGS ARE DESCRIBED BELOW. [...] Allie Atkins M.D. LD: LILLIANA Report ID: [id number] Reading Location: [facility] us Angeline Sawyer MD IMG MAMMO PROCEDURES Edited Result - Final * (ABNORMAL) COLONOSCOPY (04/14/2022) Scribed Colonoscopy Abnormal us Generic External Data Provider HEALTH MAINTENANC E Final Result * Hepatitis C antibody (08/03/2021 11:57 AM ORDER DETAILER) Hep C Ab Nonreactive Nonreactive [facility] Comment: Interpretive Data Nonreactive: [...] on 2019. Blood 08/03/2021 11:5 7 AM ORDER DETAILER 08/03/2021 4:34 PM ORDER DETAILER us Ana Carrillo DNP LAB MICROBIOLOGY - GENERAL O RDERABLES Final Result [facility] [address] Department [place] [address] from Last 3 Months or Most Recently Relevant to Health Maintenance Insurance [employer] CLAIM[employer] CLAIMS Care Teams Gauge And Weigh Machine Adjuster Relationship Specialty Start Date End Date Dary Soria MD [address] [facility] [address] [place], [place] [id number] PCP - General Internal Medicine 04/19/23 Angeline Sawyer MD [address] [facility] [address] [place] [address] Consulting Physician Obstetrics and Gynecology 05/09/22
--- OUTSIDE RECORDS SUMMARY | 2025-02-04 15:16 | XMS_ITS | Clinical Summary ---
Author Organization [facility] Address [address] [facility] [place] [address] Care Team Providers Care Meter Repairer Helper Name Role Phone Dary Soria MD Primary Care Provider [phone] Source Comments [facility],non-owned Affiliates and Associated Physician Practices is amultiple site organization consisting of ambulatory clinics and hospital sitesin [place], [place], [place] and [place]. This disclosure is being madepursuant to the Care Everywhere program and may not contain all information available regarding this patient. Last updated 18.[facility] [employer] Allergies Active Allergy Reactions Criticality Noted Date [...] fluticasone propionate (Flonase) 50 MCG/ACT nasal spray [place] 1 (one) spray into the nose 2 times daily 3 Active loratadine-pseu doephedrine 12hr (Claritin-D 12 Hour) 5-120 MG tablet Take 1 mg by mouth Active Active Problems Problem Noted Date Diagnosed Date Dizziness and giddiness 11/26/2024 Chest pain 11/26/2024 Osteoarthritis 11/26/2024 Encounters Date Type Department Care Team Description 12/16/2024 Results Follow-Up [facility] Heart & Vascular [address] [place] [address] Chinedu Pal MA 12/04/2024 8:30 AM CDT Hospital Encounter [facility] Care [address] [place] [address], [address] [address] Cristian Palacios MD Discharge Disposition: Home or Self Care 12/04/2024 8:30 AM CDT Hospital Encounter [facility] [address], [address] [address] Cristian Palacios MD Discharge Disposition: Home or Self Care 11/26/2024 9:30 AM CDT Office Visit [facility] & Vascular [address] [place] [address] Cristian Palacios MD Chest pain, unspecified type (Primary Dx); Dizziness and giddiness; Osteoarthritis, unspecified osteoarthritis type, unspecified site; Dyslipidemia; Overweight; Abnormal ECG 11/24/2024 Telephone [facility] Care [address] [place] [address] [address] [place] [address] Mohan adkins [facility] Heart Scheduling from Last 3 Months Social [...] Description 04/29/2025 11:30 AM CDT Office Visit [facility] Care [address] [place] [address] [address] [place] [address] Cristian Palacios MD [address] [place] [address] [address] [place] [address] Health Maintenance Due Date Last [...] Note Monika Garcia DO - 12/05/2024 [address] [facility] [place] [address] [facility] [employer] [employer] Nuclear Myocardial Perfusion Scan Report Pat.Name: SUYAPA OLGUIN Pat.ID: [id number] St.Date: 12/04/2024 Refer.MD: Joaquina oSria Exam Time: 8:19:00 AM Study Type:Nuclear Myocardial Perfusion Scan Weight: 79.09kg Age: 8 1965,59Y Sex: FEMALE Sonogrphr: Cody Belle [facility] Reason for Study: Chest pain, Abnormal EKG Procedures: Exercise Perfusion Scan, Gated Stress Visit ID: [id number] Risk Factors:Hypercholesterolemia Clinical Symptoms:Chest pain Medications:Fosamax, Estradiol, [...] 8:30 AM Patient Status: O/P Study Site: [facility] Primary Location: [facility] EStudy Info Exam Type: STRESS TEST Indications [...] 8:30 AM Patient Status: O/P Study Site: [facility] Primary Location: [facility] EStudy Info Exam Type: STRESS TEST Indications [...] 137 bpm was achieved, 86%PMHR. Walked 7 [id number] seconds. * Normal blood pressure response. * [...] 137 bpm was achieved, 86%PMHR. Walked 7 [id number] seconds. The patient's peak stress blood pressure [...] (Bezet) 377 ms [facility] MUSE Calculated P [place] 54 degrees [facility] MUSE Calculated R [place] -43 degrees [facility] MUSE Calculated T [place] 4 degrees [facility] MUSE Interpretation EKG NORMAL SINUS RHYTHM LEFT AXIS DEVIATION LOW VOLTAGE QRS POOR R WAVE PROGRESSION NONSPECIFIC ST AND T WAVE ABNORMALITY ABNORMAL ECG Confirmed by Suzanne FULLER, Cristian ([id number]) on 11/26/2024 12:51:02 PM [facility] MUSE 11/26/2024 10:0 3 AM CDT 11/26/2024 12:51 PM CDT us Cristian Palacios MD ECG ORDERABLES Edited Result - Final [facility] MUSE from Last 3 Months Insurance [facility] Care Teams Meter Repairer Helper Relationship Specialty Start Date End Date Dary Soria MD [address] [facility] [address], [place] [address] [place] [address] PCP - General Internal Medicine 11/25/24
--- OUTSIDE RECORDS SUMMARY | 2025-02-04 15:16 | XMS_ITS | Encounter Summary ---
Author Organization [facility] Healthcare Address [address] [place] [address] Care Team Providers Care Solar Resource Assessor Name Role Phone Angeline Sawyer MD Unavailable [phone] Dary Soria MD Primary Care Provider Encounter Details Date Type Department Care Team (Late st Contact Info) Description 12/26/2024 Results Follow-Up [facility] Medical Group Primary Care at [facility] [address] [facility] [address] [place] [address] Dary Soria MD [facility] [address] [place] [address] Hepatic function panel Social History Tobacco [...] on filedocumented in this encounter Care Teams Solar Resource Assessor Relationship Specialty Start Date End Date Dary Soria MD [address] [place], [place] [id number] PCP - General Internal Medicine 04/19/23 Angeline Sawyer MD [address] [place] [address] Consulting Physician Obstetrics and Gynecology 05/09/22 documented as of this encounter
--- OUTSIDE RECORDS SUMMARY | 2025-02-04 15:16 | XMS_ITS | Encounter Summary ---
Author Organization [facility] Healthcare Address [address] [place] [address] Care Team Providers Care Production Estimator Name Role Phone Angeline Sawyer MD Unavailable [phone] Dary Soria MD Primary Care Provider Reason for Visit * Reason Onset Date Comments Medical Question/Miscellaneous 02/04/2025 Encounter Details Date Type Department Care Team (Late st Contact Info) Description 02/04/2025 Telephone [facility] Medical Group Primary Care at [facility] [address] [facility] [address] [facility] [place] [address] Dray Soria MD [address] [facility] [address] [facility] [place] [address] Medical Question/Miscellaneous Social History Tobacco [...] on filedocumented in this encounter Care Teams Production Estimator Relationship Specialty Start Date End Date Dary Soria MD [address] [place] [address] PCP - General Internal Medicine 04/19/23 Angeline Sawyer MD [address] [place] [address] Consulting Physician Obstetrics and Gynecology 05/09/22 documented as of this encounter
--- OUTSIDE RECORDS SUMMARY | 2025-02-04 15:17 | XMS_ITS | Encounter Summary ---
Author Organization [facility] Address [address] [place] [address] Care Team Providers Care Home Planning Consultant Salesperson Name Role Phone Dary Soria MD Primary Care Provider [phone] Encounter Details Date Type Department Care Team (Late st Contact Info) Description 12/16/2024 Results Follow-Up [facility] Heart & Vascular Care [address] [place] [address] [address] [place] [address] Chinedu Pal MA Social History Tobacco Use [...] Description 04/29/2025 11:30 AM CDT Office Visit [facility] Care [address] [place] [address] [address] [place] [address] Cristian Palacios MD [address] [place] [address] [address] [place] [phone] documented as of this encounter Visit Diagnoses Not on filedocumented in this encounter Care Teams Home Planning Consultant Salesperson Relationship Specialty Start Date End Date Dary Soria MD [address] [facility] [address], [facility] [address] [place] [address] PCP - General Internal Medicine 11/25/24 documented as of this encounter
--- NOTE | 2025-02-04 15:34 | ED.GENADULT ---
HPI - General Adult General Chief complaint: Recheck/Abnormal Lab/Rx Stated complaint: POST PROCEDURE INFECTION Time Seen by Provider: 02/04/25 12:54 History of Present Illness HPI narrative: Patient is a 59-year-old female who presents ER for evaluation for leg. Right lower extremity underwent sclerotherapy last month. She she had a lot of pain afterwards and has had black ulcerations that have started to get smaller. She has had slight erythema and has been placed on antibiotics by her associate business analyst. No fevers or chills. Occasional has some pain that moves up her leg. No chest pain or shortness of breath. Her associate business analyst 1 a 2nd opinion so she was sent here but she has follow-up in the next day. Related Data Home Medications ?Medication ?Instructions ?Recorded ?Confirmed ?Last Taken ?Type alendronate 70 mg tablet 70 mg PO WEEKLY 07/10/22 12/24/24 07/06/22 History estradiol 10 mcg vaginal tablet 10 mcg vaginal DAILY 07/10/22 12/24/24 Unknown History pantoprazole 40 mg tablet,delayed 40 mg PO DAILY 07/10/22 12/24/24 Unknown History release azelaic acid 15 % topical gel 1 applic topical BID 01/01/23 12/24/24 Unknown History cephalexin 500 mg capsule 500 mg PO Q12H 01/01/23 12/24/24 Unknown History Allergies Allergy/AdvReac Type Severity Reaction Status Date / Time levofloxacin (From Levaquin) Allergy Unknown Verified 12/24/24 10:55 nitrofurantoin (From Allergy Unknown Verified 12/24/24 10:55 Macrobid) Sulfa (Sulfonamide Allergy Rash Verified 12/24/24 10:55 Antibiotics) trimethoprim Allergy Unknown Verified 12/24/24 10:55 Review of Systems Review of Systems: All systems reviewed & are unremarkable except as noted in HPI and below Constitutional: Constitutional: Reports no additional constitutional complaints Cardiovascular: Cardiovascular: Reports no additional cardiovascular complaints Respiratory: Respiratory: Reports no additional respiratory complaints Integumentary/Breasts: Skin/Breast: Reports system reviewed and no additional complaints, except as docu PMFSH Past Medical History Medical History Scoliosis Sleep apnea History of stress test Hay fever Acne rosacea Osteoporosis History of Helicobacter pylori infection Chronic urinary tract infection COVID-19 (03/2022) Gastroesophageal reflux disease Surgical History Surgical History History of oophorectomy (~10/17/75) History of foot surgery (~02/2010) History of 3 sections History of appendectomy Family History Family History Father Heart disease Sleep apnea Malignant neoplasm of prostate Skin cancer Mother Parkinsons disease Arthritis Other Diabetes mellitus Gout Other Family history non-contributory Social History Social History Social History: Code status: Full code. Smoking status: Never smoker Alcohol intake: current Alcohol use details: Social alcohol use in moderation. Substance use: never Do You Feel Safe in your Home?: Yes Lack of Transportation: No Lack of Food: Never True Current Housing: I Have Housing Concerned About Future Housing: No Difficulty Paying Gas/Electric Bills: No Difficulty Paying for Meds: No Currently Unemployed: No Education: Don't Know Difficulty w/ Childcare or Family Care: Decline to Answer Additional living arrangements comments: The patient lives with her and children in [place]. Spiritual care concerns: No Exam Narrative: GENERAL: Well-appearing, well-nourished, and in no acute distress. HEAD: Normocephalic, atraumatic. ENT: Mucous membranes moist. CHEST: Clear to auscultation. No respiratory distress. HEART: Regular rate and rhythm. Normal peripheral pulses. EXTREMITIES: Normal range of motion. No edema. SKIN: Warm, dry, no rash. Multiple black eschars right lower extremity or patient had sclerotherapy. Slight pink issue to lower extremity but no significant warmth or tenderness of the skin outside of these lesions that now have some sloughing of dry skin. NEURO: Alert and oriented x3. PSYCH: Normal mood and affect. Course Course Emergency Course: Discussed imaging and lab results. Appropriate for discharge home. I think these are healing skin donald ulcers. I tried contacting patient's associate business analyst but she did not picking table worker her cellphone. Vital Signs Vital signs: Vital Signs Temperature 97.3 F L 02/04/25 12:38 Pulse Rate 61 02/04/25 12:38 Respiratory Rate 20 02/04/25 12:38 Blood Pressure 123/71 02/04/25 12:38 Pulse Oximetry 98 02/04/25 12:38 Oxygen Delivery Room Air 02/04/25 12:38 Temperature 97.3 F L 02/04/25 12:38 Pulse Rate 61 02/04/25 12:38 Respiratory Rate 16 02/04/25 13:14 Blood Pressure 123/71 02/04/25 12:38 Pulse Oximetry 98 02/04/25 13:14 Oxygen Delivery Room Air 02/04/25 12:38 Medical Decision Making Vital Signs Vital Signs: Vital Signs Temperature 97.3 F L 02/04/25 12:38 Pulse Rate 61 02/04/25 12:38 Respiratory Rate 20 02/04/25 12:38 Blood Pressure 123/71 02/04/25 12:38 Pulse Oximetry 98 02/04/25 12:38 Oxygen Delivery Room Air 02/04/25 12:38 Temperature 97.3 F L 02/04/25 12:38 Pulse Rate 61 02/04/25 12:38 Respiratory Rate 16 02/04/25 13:14 Blood Pressure 123/71 02/04/25 12:38 Pulse Oximetry 98 02/04/25 13:14 Oxygen Delivery Room Air 02/04/25 12:38 Lab Data 02/04/25 13:41 02/04/25 13:41 Labs: Lab Results 02/04/25 Range/Units 13:41 WBC 6.9 (4.5-10.0) K/mm3 RBC 4.80 (4.2-5.4) M/mm3 Hgb 13.8 (12.0-15.0) g/dL Hct 42.8 (37.0-47.0) % MCV 89.2 (80-100) fl MCH 28.8 (26-34) pg MCHC 32.2 (32-36) g/dl RDW 13.8 (11.5-14.5) % Plt Count 329 (150-375) k/mm3 MPV 8.5 (7.4-10.4) fl Immature Gran % (Auto) 0.3 (0-0.5) % Neut % (Auto) 68.0 (45.5-73.1) % Lymph % (Auto) 23.3 (18.3-44.2) % [place] % (Auto) 6.3 (2.6-8.5) % Eos % (Auto) 1.7 (0-4.4) % Baso % (Auto) 0.4 (0.2-1.2) % Lymph # (Auto) 1.60 (0.9-3.2) K/mm3 [place] # (Auto) 0.4 (0.1-0.6) K/mm3 Eos # (Auto) 0.1 (0-0.3) K/mm3 Baso # (Auto) 0.0 (0.0-0.1) K/mm3 Abs Immat Gran (auto) 0.02 (0.00-0.031) K/mm3 Absolute Neuts (auto) 4.7 (1.3-6.7) K/mm3 Absolute Nucleated RBC 0.000 (0.0-0.012) K/mm3 Nucleated RBC % 0.0 (0.0-0.2) % PT 13.3 (11.1-14.7) Seconds INR 1.0 APTT 27.1 (22.3-36.8) Seconds Sodium 138 (137-145) mmol/L Potassium 4.2 (3.4-5.0) mmol/L Chloride 104 (98-107) mmol/L Carbon Dioxide 28 (22-30) mmol/L Anion Gap 6 (4-12) mmol/L BUN 22 H D (7-17) mg/dL Creatinine 0.63 L (0.7-1.0) mg/dL Estim Creat Clear Calc 89 ml/min Estimated GFR > 60 (59 - ) Glucose 89 (65-110) mg/dL Calcium 10.7 H (8.4-10.2) mg/dL Total Bilirubin 0.5 (0.2-1.3) mg/dL AST 40 H (14-36) U/L ALT 39 H (6-35) U/L Alkaline Phosphatase 79 (38-126) U/L Total Protein 7.3 (6.3-8.2) g/dL Albumin 4.4 (3.5-5.1) g/dL Imaging Data Radiologist's impression: ITS Impressions Venous Doppler Study 02/04/25 13:46 IMPRESSION: 1: No lower extremity deep venous thrombosis. Discharge Plan Discharge Clinical Impression: Leg ulcer Patient Disposition: Home Condition: Stable Additional Instructions: It is felt that a small artery was injured when the veins were ablated. This has caused some ischemic ulcers to her legs that seem to be healing. You may need wound care if your primary doctor feels it warranted. Return the ER if you have fever over 100.4? F, you have pus draining from the wounds, or you have additional concerns. Patient Language: Romanian Prescriptions: No Action fluticasone propionate [Flonase Allergy Relief] 50 mcg/actuation spray,suspension 2 spray NASAL DAILY Qty: 15.8 0RF Rx Instructions: administer into each nostril cephalexin 500 mg capsule 500 mg PO Q12H azelaic acid 15 % gel 1 applic topical BID alendronate 70 mg tablet 70 mg PO WEEKLY Rx Instructions: pt takes on . pantoprazole 40 mg tablet,delayed release (DR/EC) 40 mg PO DAILY estradiol 10 mcg tablet 10 mcg VAGINAL DAILY Follow-up/Referrals: UNKNOWN,DOCTOR [Primary Care Provider] - 1 Week
== END 2025-02-04 16:24 | disposition home or self-care (01) ==
PROVIDERS: Emergency Provider Emergency Medicine
DX: L76.82 Other postprocedural complications of skin and subcutaneous tissue (principal); M81.0 Age-related osteoporosis without current pathological fracture; M41.9 Scoliosis, unspecified; K21.9 Gastro-esophageal reflux disease without esophagitis; G47.30 Sleep apnea, unspecified; Z86.16 Personal history of COVID-19; Y83.8 Other surgical procedures as the cause of abnormal reaction of the patient, or of later complication, without mention of misadventure at the time of the procedure
CPT/HCPCS: 36415; 80053; 85025; 85610; 85730; 93971; 99284

== ENCOUNTER 2025-03-04 21:11 | Emergency (ER) | payer OTHER, SELFPAY ==
--- OUTSIDE RECORDS SUMMARY | 2025-03-04 21:14 | XMS_ITS | Encounter Summary ---
Author Organization [facility] Healthcare Address [address] [place] [address] Care Team Providers Care Stable Hand Name Role Phone Angeline Sawyer MD Unavailable [phone] Dary Soria MD Primary Care Provider Reason for Visit * Reason Onset Date Comments Medical Question/Miscellaneous 02/04/2025 Encounter Details Date Type Department Care Team (Late st Contact Info) Description 02/04/2025 Telephone [facility] Medical [facility] Primary Care at [facility] [address] [facility] [place] [address] Dary Soria MD [address] [address] [facility] [place] [address] Medical Question/Miscellaneous Social History Tobacco [...] on filedocumented in this encounter Care Teams Stable Hand Relationship Specialty Start Date End Date Dary Soria MD [address] [place] [address] PCP - General Internal Medicine 04/19/23 Angeline Sawyer MD [address] [place] [address] Consulting Physician Obstetrics and Gynecology 05/09/22 documented as of this encounter
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
--- OUTSIDE RECORDS SUMMARY | 2025-03-04 21:14 | XMS_ITS | Clinical Summary ---
Author Organization [facility] Address [address] [place] [address] Care Team Providers Care Game Developer Name Role Phone Dary Soria MD Primary Care Provider [phone] Source Comments [facility],non-owned Affiliates and Associated Physician Practices is amultiple site organization consisting of ambulatory clinics and hospital sitesin [place], [place], [place] and [place]. This disclosure is being madepursuant to the Care Everywhere program and may not contain all information available regarding this patient. Last updated 18.[facility] [place] Allergies Active Allergy Reactions Criticality Noted Date [...] fluticasone propionate (Flonase) 50 MCG/ACT nasal spray [place] 1 (one) spray into the nose 2 times daily 3 Active loratadine-pseu doephedrine 12hr (Claritin-D 12 Hour) 5-120 MG tablet Take 1 mg by mouth Active Active Problems Problem Noted Date Diagnosed Date Dizziness and giddiness 11/26/2024 Chest pain 11/26/2024 Osteoarthritis 11/26/2024 Encounters Date Type Department Care Team Description 12/16/2024 Results Follow-Up [facility] [address] [place] [address] Chinedu Pal MA 12/04/2024 8:30 AM CDT Hospital Encounter [facility] [address], [address] [place] [address] Cristian Palacios MD Discharge Disposition: Home or Self Care 12/04/2024 8:30 AM CDT Hospital Encounter [facility] [address], [address] [place] [address] Cristian Palacios MD Discharge Disposition: Home or Self Care from Last 3 Months Social History Tobacco [...] Description 04/29/2025 11:30 AM CDT Office Visit [facility] [address] [place], [place] [id number] Cristian Palacios MD [address] [place] [address] [address] [place] [address] Health Maintenance Due Date Last [...] 11/22/2021 SCREENING FOR DIABETES 11/26/2024 INFLUENZA VACCINE (#1) 2025 06/08/2020 MAMMOGRAM 06/26/2026 06/26/2024, 06/20/2023, 05/09/2022 [...] 9:37 AM CDT Chest pain, unspecified type from Last 3 Months Results * NM MYOCARD PERF REST STRESS (12/04/2024 10:14 AM CDT) Anatomical Region Laterality Modality Chest Nuclear Digisoni cs 12/04/2024 8:19 AM CDT Narrative Procedure Note Monika Garcia DO - 12/05/2024 [address] [place] [address] [facility] Perfusion Scan Report Pat.Name: SUYAPA OLGUIN Pat.ID: [id number] .Date: 12/04/2024 Refer.MD: Joaquina Soria Exam Time: 8:19:00 AM Study Type:Nuclear Myocardial Perfusion Scan Weight: 79.09kg Age: 8 1965,59Y Sex: FEMALE Sonogrphr: PIERO Shaffer Reason for Study: Chest pain, Abnormal EKG Procedures: Exercise Perfusion Scan, Gated Stress Visit ID: [id number] Risk Factors:Hypercholesterolemia Clinical Symptoms:Chest pain Medications:Fosamax, Estradiol, [...] Monika Garcia DO us Cristian Palacios MD [place] ORDERABLES Edited * STRESS TEST Treadmill (12/04/2024 [...] 8:30 AM Patient Status: O/P Study Site: [facility] Primary Location: [facility] EStudy Info Exam Type: STRESS [...] 8:30 AM Patient Status: O/P Study Site: [facility] Primary Location: [facility] EStudy Info Exam Type: STRESS [...] 137 bpm was achieved, 86%PMHR. Walked 7 [id number] seconds. * Normal blood pressure response. * [...] 137 bpm was achieved, 86%PMHR. Walked 7 [id number] seconds. The patient's peak stress blood pressure [...] by Monika Garcia on 12/04/2024 05:47 PM Cristian Palacios MD [facility] Final R esult from Last 3 Months Insurance [facility] Care Teams Game Developer Relationship Specialty Start Date End Date Dary Soria MD [address] [address] PCP - General Internal Medicine 11/25/24
--- OUTSIDE RECORDS SUMMARY | 2025-03-04 21:15 | XMS_ITS | Clinical Summary ---
Author Organization [facility] Address [address] [place] [address] Phone Care Team Providers Care Batterboard Setter Name Role Phone Rosa Loredo MD Primary [...] 08/03/2021 Active fluticasone propionate (FLONASE) 50 mcg/spray [place], Suspension nasal inhaler 09/08/2021 Active cephALEXin (KEFLEX) [...] Encounters Date Type Department Care Team Description 02/17/2025 External Device Data [facility] ABSTRACTION Provider, Abstract 01/20/2025 External Device Data [facility] Provider, [...] Description 05/06/2025 1:15 PM CDT Office Visit [facility] [address] [place] [address] Zohaib Shrestha MD [address] [place] [address] Health Maintenance Due Date Last Done Comments Pre-Diabetes and Diabetes Screening 1965 HPV/Cotest (21-29) 1985 HPV/Cotest (30-65) 1994 FIT-DNA Q 3 years 2009 FIT/FOBT Q 1 year 2009 Flex Sig/CT Colonography Q 5 years 2009 BREAST CANCER SCREENING 06/20/2024 06/20/20 23, 12/14/2022, 06/12/2022, Additional history exists CERVICAL CANCER SCREENING 11/22/2024 PAP SMEAR 11/22/2024 11/22/2021 INFLUENZA VACCINE (#1) 2025 06/08/2020 COLORECTAL SCREENING 04/14/2027 04/14/2022, 04/14/20 Colorectal Cancer [...] Shrestha MD - 04/14/2022 11:58 AM CDT [facility] Endoscopy Patient Name: Suyapa Macias Procedure Date: 04/14/2022 Date of : 1965 Attending MD: Zohaib Shrestha MD Procedure: Colonoscopy Indications: Surveillance: Personal history of adenomatous polyps, including small adenoma 2015 and three small adenomas on last colonoscopy [...] signed electronically. Number of Addenda: [phone] ; [place] [address] Zohaib Shrestha MD GI PROCEDURE ORDERABLES Final Result from Last 3 Months or Most Recently Relevant to Health Maintenance [place] [place] [address] Advance Directives For more information, please contact: [phone] * Full Code (Latest Code Status on File) Date Activated Date Inactivated Comments 04/14/2022 10:19 AM 04/14/2022 2:30 PM Care Teams Batterboard Setter Relationship Specialty Start Date End Date Rosa Loredo MD PCP - General Internal Medicine 10/07/21
--- OUTSIDE RECORDS SUMMARY | 2025-03-04 21:15 | XMS_ITS | Referral Summary ---
Author Organization [facility] Address [address] [place] [address] Phone Care Team Providers Care Beauty Advisor Name Role Phone Angeline Sawyer MD Unavailable [phone] Dary Soria MD Primary Care Provider Encounters Date Type Department Care Team Description 02/04/2025 Telephone [facility] Medical Group Primary Care at [facility] [address] [place] [address] Dary Soria MD Medical Question/Miscellaneou s 01/01/2025 Telephone [facility] Medical [facility] Primary Care at [facility] [address] [place] [address] Dary Soria MD Medical Records Request 12/26/2024 Results Follow-Up [facility] Medical Group Primary Care at [facility] [address] [place] [address] Dary Soria MD Hepatic function panel 12/25/2024 3:12 PM CDT - 12/25/2024 11:59 PM CDT Hospital Encounter [facility] [address] [place] [address] Discharge Disposition: Discharge to home or self care 12/25/2024 2:45 PM CDT Lab [facility] Medical [facility] Primary Care at [facility] [address] [place] [phone] 12/25/2024 2:00 PM CDT Office Visit [facility] Primary Care at [facility] [address] [place] [phone] Dary Soria MD Elevated liver enzymes (Primary Dx); Onychomycosis; 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, [address] [place] [address] Manolo Garcia, OD Hordeolum internum of right upper eyelid (Primary Dx) 12/18/2024 Telephone [facility] Ophthalmology [address], [address] [place] [address] Manolo Garcia, OD 12/18/2024 11:00 AM CDT Procedure visit [facility] Otolaryngology [address], [address] [place] [address] Conductive hearing loss of left ear with unrestricted hearing of right ear (Primary Dx) 12/18/2024 11:40 AM CDT Office Visit [facility] Otolaryngology 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 Dizziness and giddiness 12/08/2024 Results Follow-Up [facility] [address] [place] [address] Angeline Sawyer MD High Risk HPV DNA Detection with Genotyping (Molecular component), ThinPrep processing (Molecular component), Pap and High Risk HPV and Genotyping (Cytology Component) 12/05/2024 3:44 PM CDT - 12/05/2024 11:59 PM CDT Hospital Encounter [facility] [address] [place] [address] Screening for malignant neoplasm of the cervix; Screening for HPV (human papillomavirus) Discharge Disposition: Discharge to home or self care 12/05/2024 10:30 AM CDT Office Visit [facility] Medical Group [facility] [address] [address] Angeline Sawyer MD Encounter for well woman exam with routine gynecological exam (Primary Dx); Screening for malignant neoplasm of the cervix; Screening for HPV (human papillomavirus); Postmenopausal atrophic vaginitis; Age-related osteoporosis without current pathological fracture 12/04/2024 Telephone [facility] Advanced Medicine ([facility]) - [facility] ENT [address]th [place] [address] [place] [address] Erin Rondon MS 12/03/2024 Orders Only [facility] Otolaryngology [address], [address] [place] [address] Abby Chew RN Dizziness and giddiness (Primary Dx) from Last 3 Months Allergies [...] nostril daily 16 g 5 2 Active loratadine-pseud oephedrine (Claritin-D 12 Hour) 5-120 mg tablet extended release 12 hr Take 1 mg by mouth Active estradioL (VAGIFEM) 10 mcg tabletIndication s:Postmenopausal atrophic vaginitis Insert one tablet into vagina twice weekly 24 tablet 3 5 Active alendronate (FOSAMAX) 70 mg tabletIndication s:Age-related osteoporosis without current pathological fracture Take 1 tablet (70 mg total) by mouth every 7 days Take in the morning with a full glass of water, on an empty stomach, and do not take anything else by mouth or lie down for the next 30 min. 12 tablet 3 5 Active terbinafine (LamiSIL) 250 mg tablet TAKE 1 TABLET BY MOUTH EVERY DAY FOR 2 WEEKS OUT OF EACH MONTH 5 Active doxycycline (VIBRAMYCIN) 100 mg capsuleIndicatio ns:Hordeolum internum of right upper eyelid Take 1 tablet/capsule (100 mg total) by mouth 2 (two) times a day 60 tablet/capsu le 1 5 02/17/20 25 Active Problems Problem Noted Date Diagnosed Date [...] 05/2024 - Pap: UTD 10/2021, repeat per Geospatial Image Analyst Immunizations - Influenza: Recommend annually - Td/Tdap: UTD 07/2021, repeat 07/2031 - PCV20: Discuss at 64 - Shingles: UTD x 2 2020 - COVID: Recommended Assessment & Plan (10/23/2023 12:43 PM RESIDENTIAL APPLIANCE REPAIR TECHNICIAN): General - HbA1c: 5.4% 03/2023, repeat annually - Lipid panel: LDL 127 03/2023, repeat annually - ASCVD score: 2.2% low risk - DEXA scan: UTD 04/2022, repeat 04/2024 Cancer - Colonoscopy: UTD 03/2022, repeat 03/2027 - Mammogram: UTD 05/2023, repeat 05/2024 - Pap: UTD 10/2021, repeat per Geospatial Image Analyst Immunizations - Influenza: Recommended - Td/Tdap: UTD 07/2021, repeat 07/2031 - PCV20: Discuss at 64 - Shingles: UTD x 2 2020 - COVID: Recommended Primary osteoarthritis involving multiple joints 10/23/2023 Assessment & Plan (04/21/2024 3:17 PM CDT): Considering R knee replacement. Assessment & Plan (10/23/2023 12:43 PM RESIDENTIAL APPLIANCE REPAIR TECHNICIAN): Chronic, does use NSAIDs occasionally. Discussed risks, benefits, and alternatives. Prediabetes 08/04/2022 Assessment & Plan (04/21/2024 3:16 PM CDT): A1c normal on last check. Anxiety 08/04/2022 Assessment & Plan (04/21/2024 3:16 PM CDT): Increasing anxiety lately about memory and health. Reassurance provided today. Consider SSRI in future. Assessment & Plan (08/04/2022 6:18 PM RESIDENTIAL APPLIANCE REPAIR TECHNICIAN): Large amount of life stressors Overwhelmed Discussed [...] regimen Assessment & Plan (10/23/2023 12:41 PM RESIDENTIAL APPLIANCE REPAIR TECHNICIAN): Continues on Fosamax 70 mg daily. - Continue current regimen Assessment & Plan (08/04/2022 6:22 PM RESIDENTIAL APPLIANCE REPAIR TECHNICIAN): Noted on Dexa 2021 Fosamax Age-related nuclear [...] sensation. 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 [...] BID Assessment & Plan (10/23/2023 12:41 PM RESIDENTIAL APPLIANCE REPAIR TECHNICIAN): See above, follows with Dr. Shrestha. - Continue pantoprazole 40 mg BID Assessment & Plan (08/04/2022 6:23 PM RESIDENTIAL APPLIANCE REPAIR TECHNICIAN): F/b GI Zohaib Chery. 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 [...] cancer. Assessment & Plan (10/03/2021 11:04 AM RESIDENTIAL APPLIANCE REPAIR TECHNICIAN): Followed by her PCP. Chronic and stable. She will continue taking her Pepcid for acid reflux control. Assessment & Plan (09/05/2021 9:54 AM RESIDENTIAL APPLIANCE REPAIR TECHNICIAN): Followed by her PCP and controlled on her Pepcid. Recommend that she continue her Pepcid. Scoliosis of thoracic spine 06/30/2021 Overview (08/04/2022): F/b Dr. Ramey Wanting to start PT for her back Assessment & Plan (04/21/2024 3:17 PM CDT): Stable. Assessment & Plan (08/04/2022 6:20 PM RESIDENTIAL APPLIANCE REPAIR TECHNICIAN): F/b Dr. Ramey Wanting to start PT for her back Environmental allergies 06/30/2021 Assessment & Plan (04/21/2024 3:16 PM CDT): Stable. Resolved Problems Problem Noted Date Diagnosed Date Resolved Date Folliculitis 10/23/2023 04/21/2024 Assessment & Plan (10/23/2023 12:42 PM RESIDENTIAL APPLIANCE REPAIR TECHNICIAN): Area of purple-red discoloration at site of [...] started. Assessment & Plan (08/04/2022 6:24 PM RESIDENTIAL APPLIANCE REPAIR TECHNICIAN): H. pylori infection which was treated in 2019 with amoxicillin, clarithromycin, PPI. However, subsequent breath test was positive. There were plans for Pylera, but the patient never completed the therapy as the Covid pandemic started. Health care maintenance 04/18/202209/28 Overview (08/04/2022): Images from the original note were not included. 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 Follow up 3-4 weeks Warning [...] (08/03/2021): Added automatically from request for surgery [id number] Arthritis 06/30/2021 10/23/2023 Assessment & Plan (10/03/2021 11:04 AM RESIDENTIAL APPLIANCE REPAIR TECHNICIAN): Followed by her PCP. Chronic and stable. She is controlled with her Tylenol and Voltaren gel and recommended that she continue this as needed. Assessment & Plan (09/05/2021 9:55 AM RESIDENTIAL APPLIANCE REPAIR TECHNICIAN): Followed by her PCP and controlled with Tylenol and Voltaren gel. Recommend that she continue the Tylenol and Voltaren gel for symptomatic relief of arthritis. Chronic UTI 06/30/2021 04/23/2023 Varicose veins of left lower extremity with pain 06/30/2021 10/23/2023 Assessment & Plan (10/03/2021 11:03 AM RESIDENTIAL APPLIANCE REPAIR TECHNICIAN): Patient does not have any varicose veins [...] needed. Assessment & Plan (09/05/2021 9:56 AM RESIDENTIAL APPLIANCE REPAIR TECHNICIAN): Patient has spider veins on her bilateral [...] HEPATITIS C ANTIBODY Routine 08/03/2021 11:57 AM RESIDENTIAL APPLIANCE REPAIR TECHNICIAN Need for hepatitis C screening test from Last 3 Months or Most Recently Relevant to Health Maintenance Results * Hepatic function panel (12/25/2024 2:45 PM CDT) Bilirubin, total 0.7 0.1 - 1.2 mg/dL Bilirubin, direct 0.2 0.1 - 0.3 mg/dL [facility] Protein, pl 7.4 6.5 - 8.5 g/dL [facility] Albumin 4.4 3.5 - 5.0 g/dL [facility] Alk phos 66 40 - 130 Units/L [facility] ALT 41 7 - 45 Units/L [facility] AST 25 10 - 45 Units/L [facility] Blood 12/25/2024 2:45 PM CDT 12/25/2024 6:55 PM CDT us Dary Soria MD LAB BLOOD ORDERABLES F inal Result [facility] [address] Department [place] [address] * [employer] Results (12/18/2024 10:59 AM CDT) us Provider Scanning AUDIOLOGY SERVICES ORDERABLES Final Result * Pap and High Risk HPV and Genotyping (Cytology Component) (12/05/2024 1:58 PM CDT) Thin prep (Pap test) 12/05/2024 1:58 PM CDT 12/08/2024 8:30 AM CDT Narrative PATHOLOGY [facility] - 12/10/2024 8:44 AM CDT EPIC results best viewed via link to PDF [address] [address] Tele: Merlyn Morales MD - Office Technology Instructor CYTOLOGY REPORT Note to Patients: This report [...] the details. Patient Name: SUYAPA AUGUSTIN Address: [address] [place] [address] Gender: F : 1965 (Age: 59) Service: Location: N : [id number] [facility] #: [id number] Patient Type: [facility] SPECIMEN Taken: 12/05/2024 Reported: 12/10/2024 Physician(s): Angeline Sawyer MD FINAL DIAGNOSIS: SOURCE OF SPECIMEN - ThinPrep Pap and HPV w/ reflex Genotyping: STATEMENT OF ADEQUACY Source: Cervical/Endocervical - Satisfactory for interpretation - Endocervical /Transformation Zone component present - Case screened using computer assisted imaging technology GENERAL CATEGORIZATION: - Negative for intraepithelial lesion or malignancy cad/12/10/2024 08:44Sarah Savage (ASCP) Mary Plascencia M.S., CT [...] part or completely in the following laboratories: [facility], [facility] [place] [id number] [facility], [address] [place] [address]. Angeline Sawyer MD LAB CYTOLOGY ORDERABLES Rhonda l Result Performing Organization Address City/[facility]/ZIP Co de Phone Number PATHOLOGY [facility] Laboratory Receiving [address] [place], [place] [id number] * ThinPrep processing (Molecular component) (12/05/2024 12:00 PM CDT) [facility] ThinPrep processing (Molecular component) Specimen received for processing. Endocervical 12/05/2024 12:0 0 PM CDT 12/05/2024 4:49 PM CDT Angeline Sawyer MD LAB BODY FLUIDS AND STOOLS O RDERABLES Final Result [facility] [address] Department [place] [address] * High Risk HPV DNA Detection with Genotyping (Molecular component) (12/05/2024 12:00 PM CDT) [facility] HPV HR 16 Not Detected Not Detected HPV HR 18 Not Detected Not Detected [facility] HPV HR Non 16/18 Not Detected Not Detected [facility] Comment: Interpretive Data Nucleic acid amplification [...] this test have been verified by the [facility] Laboratory. Correlate with separately reported cytology results, as applicable. Interpretive data last revised 23 Endocervical 12/05/2024 12:0 0 PM CDT 12/05/2024 4:49 PM CDT Narrative [facility] - 12/08/2024 6:06 PM CDT Clinical history and diagnosis->none Number of vials->1 Testing type->Screening Last menstrual period (date if known)->none Previous positive HPV history?->No Previous negative PAP?->Yes us Angeline Saweyr MD LAB BODY FLUIDS AND STOOLS O RDERABLES Final Result [facility] [address] Department [place] [address] * Diagnostic Mammogram Bilateral W Jah (06/26/2024 10:33 AM CDT) Anatomical Region Laterality Modality Breast Bilateral Mammography 06/26/2024 3:38 PM CDT Addenda Addendum by Allie Atkins MD on 07/02/2024 9:41 AM RESIDENTIAL APPLIANCE REPAIR TECHNICIAN ADDENDUM: THE MAMMOGRAPHIC FINDINGS ARE DESCRIBED BELOW. [...] Allie Atkins M.D. LD: LILLIANA Report ID: [id number] Reading Location: [facility] Angeline Sawyer MD IM MAMMO PROCEDURES Edited Result - Final * (ABNORMAL) COLONOSCOPY (04/14/2022) Scribed Colonoscopy Abnormal Generic External Data Provider [facility] Final Result * Hepatitis C antibody (08/03/2021 11:57 AM RESIDENTIAL APPLIANCE REPAIR TECHNICIAN) Hep C Ab Nonreactive Nonreactive [facility] Comment: Interpretive Data Nonreactive: Antibodies to HCV [...] on 2019. Blood 08/03/2021 11:5 7 AM RESIDENTIAL APPLIANCE REPAIR TECHNICIAN 08/03/2021 4:34 PM RESIDENTIAL APPLIANCE REPAIR TECHNICIAN Ana Carrillo DNP LAB MICROBIOLOGY - GENERAL O RDERABLES Final Result [facility] [address] Department [place] [address] from Last 3 Months or Most Recently Relevant to Health Maintenance Insurance CLAIMS [facility] CLAIMS Care Teams Beauty Advisor Relationship Specialty Start Date End Date Dary Soria MD [address] [place] [address] PCP - General Internal Medicine 04/19/23 Angeline Sawyer MD [address] [place] [address] Consulting Physician Obstetrics and Gynecology 05/09/22
--- OUTSIDE RECORDS SUMMARY | 2025-03-04 21:15 | XMS_ITS | Clinical Summary ---
Author Organization [facility] Address [address] [place] [address] Phone Care Team Providers Care Recreation Technician Name Role Phone Angeline Sawyer MD Unavailable [...] 05/2024 - Pap: UTD 10/2021, repeat per Squeegee Operator Immunizations - Influenza: Recommend annually - Td/Tdap: UTD 07/2021, repeat 07/2031 - PCV20: Discuss at 64 - Shingles: UTD x 2 2020 - COVID: Recommended Assessment & Plan (10/23/2023 12:43 PM COORDINATOR MINING PRODUCTS): General - HbA1c: 5.4% 03/2023, repeat annually - Lipid panel: LDL 127 03/2023, repeat annually - ASCVD score: 2.2% low risk - DEXA scan: UTD 04/2022, repeat 04/2024 Cancer - Colonoscopy: UTD 03/2022, repeat 03/2027 - Mammogram: UTD 05/2023, repeat 05/2024 - Pap: UTD 10/2021, repeat per Squeegee Operator Immunizations - Influenza: Recommended - Td/Tdap: UTD 07/2021, repeat 07/2031 - PCV20: Discuss at 64 - Shingles: UTD x 2 2020 - COVID: Recommended Primary osteoarthritis involving multiple joints 10/23/2023 Assessment & Plan (04/21/2024 3:17 PM CDT): Considering R knee replacement. Assessment & Plan (10/23/2023 12:43 PM COORDINATOR MINING PRODUCTS): Chronic, does use NSAIDs occasionally. Discussed risks, benefits, and alternatives. Prediabetes 08/04/2022 Assessment & Plan (04/21/2024 3:16 PM CDT): A1c normal on last check. Anxiety 08/04/2022 Assessment & Plan (04/21/2024 3:16 PM CDT): Increasing anxiety lately about memory and health. Reassurance provided today. Consider SSRI in future. Assessment & Plan (08/04/2022 6:18 PM COORDINATOR MINING PRODUCTS): Large amount of life stressors Overwhelmed Discussed [...] regimen Assessment & Plan (10/23/2023 12:41 PM COORDINATOR MINING PRODUCTS): Continues on Fosamax 70 mg daily. - Continue current regimen Assessment & Plan (08/04/2022 6:22 PM COORDINATOR MINING PRODUCTS): Noted on Dexa 2021 Fosamax Age-related nuclear [...] sensation. 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 Shrestha. - Continue pantoprazole 40 mg BID Assessment & Plan (08/04/2022 6:23 PM COORDINATOR MINING PRODUCTS): F/b GI Zohaib Chery. 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 Assessment & Plan (10/03/2021 11:04 AM COORDINATOR MINING PRODUCTS): Followed by her PCP. Chronic and stable. She will continue taking her Pepcid for acid reflux control. Assessment & Plan (09/05/2021 9:54 AM COORDINATOR MINING PRODUCTS): Followed by her PCP and controlled on her Pepcid. Recommend that she continue her Pepcid. Scoliosis of thoracic spine 06/30/2021 Overview (08/04/2022): F/b Dr. Ramey Wanting to start PT for her back Assessment & Plan (04/21/2024 3:17 PM CDT): Kelley. Assessment & Plan (08/04/2022 6:20 PM COORDINATOR MINING PRODUCTS): F/b Dr. Ramey Wanting to start PT for her back Environmental allergies 06/30/2021 Assessment & Plan (04/21/2024 3:16 PM CDT): Kelley. Resolved Problems Problem Noted Date Diagnosed Date Resolved Date Folliculitis 10/23/2023 04/21/2024 Assessment & Plan (10/23/2023 12:42 PM COORDINATOR MINING PRODUCTS): Area of purple-red discoloration at site of [...] started. Assessment & Plan (08/04/2022 6:24 PM COORDINATOR MINING PRODUCTS): H. pylori infection which was treated in 2019 with amoxicillin, clarithromycin, PPI. However, subsequent breath test was positive. There were plans for Pylera, but the patient never completed the therapy as the Covid pandemic started. Health care maintenance 04/18/2022 0202/2024 Overview (08/04/2022): Images from the original note were not included. C scope 03/2022 completed at [facility], repeat due in 5 years [...] placed) Assessment & Plan (08/04/2022 6:28 PM COORDINATOR MINING [employer]ODUCTS): C scope 03/2022 completed at [facility], repeat due in 5 years [...] and peripheral heme without retinal breaks , clock mechanic 360 . Follow up 3-4 weeks Warning [...] (08/03/2021): Added automatically from request for surgery [id number] Arthritis 06/30/2021 10/23/2023 Assessment & Plan (10/03/2021 11:04 AM COORDINATOR MINING [employer]ODUCTS): Followed by her PCP. Chronic and stable. She is controlled with her Tylenol and Voltaren gel and recommended that she continue this as needed. Assessment & Plan (09/05/2021 9:55 AM COORDINATOR MINING PRODUCTS): Followed by her PCP and controlled with Tylenol and Voltaren gel. Recommend that she continue the Tylenol and Voltaren gel for symptomatic relief of arthritis. Chronic UTI 06/30/2021 04/23/2023 Varicose veins of left lower extremity with pain 06/30/2021 10/23/2023 Assessment & Plan (10/03/2021 11:03 AM COORDINATOR MINING [employer]ODUCTS): Patient does not have any varicose veins [...] needed. Assessment & Plan (09/05/2021 9:56 AM COORDINATOR MINING [employer]ODUCTS): Patient has spider veins on her bilateral [...] Type Department Care Team Description 02/04/2025 Telephone [facility] Primary Care at [address] [address] Dary Soria MD Medical Question/Miscellaneou s 01/01/2025 Telephone [facility] Primary Care at [address] [address] Dary Soria MD Medical Records Request 12/26/2024 Results Follow-Up [facility] Primary Care at [address] [place] [id number] Dary Soria MD Hepatic function panel 12/25/2024 3:12 PM CDT - 12/25/2024 11:59 PM CDT Hospital Encounter [address] [address] Discharge Disposition: Discharge to home or self care 12/25/2024 2:45 PM CDT Lab [facility] Primary Care at [place] [address] [facility] [address] [place] [id number] 12/25/2024 2:00 PM CDT Office Visit [facility] Medical [facility] Primary Care at [facility] [address] [facility] [address] [facility] [address] [place] [phone] Dary Soria MD Elevated liver enzymes (Primary Dx); Onychomycosis; 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 [address], [address] [place] [address] Manolo Garcia, MIRANDA Hordeolum internum of right upper eyelid (Primary Dx) 12/18/2024 11:40 AM CDT Office Visit [facility] Otolaryngology 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 Ot[facility] [address], [address] [place] [address] Conductive hearing loss of left ear with unrestricted hearing of right ear (Primary Dx) 12/18/2024 Telephone [facility] [address], [address] [place] [address] Manolo Garcia, OD 12/16/2024 1:00 PM CDT Procedure visit [facility] Otolaryngology [address] 11th [place] [address] [place] [address] Colleen Patel Au.D. Dizziness and giddiness 12/08/2024 Results Follow-Up [facility] Medical [facility] [address] [facility] [place] [address] Angeline Sawyer MD High Risk HPV DNA Detection with Genotyping (Molecular component), ThinPrep processing (Molecular component), Pap and High Risk HPV and Genotyping (Cytology Component) 12/05/2024 3:44 PM CDT - 12/05/2024 11:59 PM CDT Hospital Encounter [facility] [address] [place] [address] Screening for malignant neoplasm of the cervix; Screening for HPV (human papillomavirus) Discharge Disposition: Discharge to home or self care 12/05/2024 10:30 AM CDT Office Visit [facility] [address], [place] [address] Angeline Sawyer MD Encounter for well woman exam with routine gynecological exam (Primary Dx); Screening for malignant neoplasm of the cervix; Screening for HPV (human papillomavirus); Postmenopausal atrophic vaginitis; Age-related osteoporosis without current pathological fracture 12/04/2024 Telephone [facility] ([facility] [address] [place] [address] [place] [address] Erin Rondon, 12/03/2024 Orders Only [facility] Otolaryngology [address], [address] [place] [address] Abby Chew RN Dizziness and giddiness (Primary Dx) from Last 3 Months Immunizations [...] 1 Supa Adina Obesity Brother 1 Supa Rushingy Rashes / Skin problems Brother 1 Supa Adina Seizures Brother 1 Supa Adina Snoring Brother 1 Supa Adina Obesity Brother 2 Joe Adina Snoring Brother 2 Joerenee Rushingy Cancer Father Siva Holden Cataracts Father Siva Holden Glaucoma Father Siva Holden Hearing loss Father Siva Holden Heart attack Father Siva Holden Snoring Father Siva Holden Alcohol abuse Maternal Grandfather Ortega Cataracts Maternal Grandmother Glaucoma Maternal Grandmother Arthritis Mother Sofia Holden Cataracts Mother Sofia Holden Clotting disorder Mother Sofia Holden Glaucoma Mother Sofia Rushingy Obesity Mother Sofia Holden Osteoarthritis Mother Sofia Rushingy Parkinsonism Mother Sofia Rushingy ADD / ADHD Son Siva Stevens d'[place] defects Son Siva patel'Altavilla Breast cancer Neg Hx Colon cancer Neg Hx Ovarian cancer Neg Hx Uterine cancer Neg Hx Relation Name Status Comments Brother 1 Supa Rushingy Brother 2 Joe Germanoury Father Siva Holden Maternal Grandfather Ortega Maternal Grandmother Mother Sofia Holden Son Siva Stevens d'[place] Social History Tobacco Use Types Packs/Day Years [...] HEPATITIS C ANTIBODY Routine 08/03/2021 11:57 AM COORDINATOR MINING PRODUCTS Need for hepatitis C screening test from Last 3 Months or Most Recently Relevant to Health Maintenance Results * Hepatic function panel (12/25/2024 2:45 PM CDT) Bilirubin, total 0.7 0.1 - 1.2 mg/dL Bilirubin, direct 0.2 0.1 - 0.3 mg/dL [facility] Protein, pl 7.4 6.5 - 8.5 g/dL [facility] Albumin 4.4 3.5 - 5.0 g/dL [facility] Alk phos 66 40 - 130 Units/L [facility] ALT 41 7 - 45 Units/L [facility] AST 25 10 - 45 Units/L [facility] Blood 12/25/2024 2:45 PM CDT 12/25/2024 6:55 PM CDT Dary Soria MD LAB BLOOD ORDERABLES F inal Result [facility] [address] Department [place] [address] * [employer] Results (12/18/2024 10:59 AM CDT) Provider Scanning AUDIOLOGY SERVICES ORDERABLES Final Result * Pap and High Risk HPV and Genotyping (Cytology Component) (12/05/2024 1:58 PM CDT) Thin prep (Pap test) 12/05/2024 1:58 PM CDT 12/08/2024 8:30 AM CDT Narrative PATHOLOGY [facility] - 12/10/2024 8:44 AM CDT EPIC results best viewed via link to PDF [address] [address] Tele: Merlyn Morales MD - Group Practice Pediatrician CYTOLOGY REPORT Note to Patients: This report [...] the details. Patient Name: SUYAPA AUGUSTIN Address: [address] [place] [address] Gender: F : 1965 (Age: 59) [facility]: [id number] Patient Type: [facility] Taken: 12/05/2024 Reported: 12/10/2024 Physician(s): Angeline [...] part or completely in the following laboratories: [facility], [facility] [facility], [place], [place] [id number] [place] [address], [address] [place] [id number]. Angeline Sawyer MD LAB CYTOLOGY ORDERABLES Rhonda l Result PATHOLOGY [facility] Laboratory Receiving [address] [place] [address] * ThinPrep processing (Molecular component) (12/05/2024 12:00 PM CDT) [facility] ThinPrep processing (Molecular component) Specimen received for processing. Endocervical 12/05/2024 12:0 0 PM CDT 12/05/2024 4:49 PM CDT Angeline Sawyer MD LAB BODY FLUIDS AND STOOLS O RDERABLES Final Result Performing Organization Address City/[facility]/ZIP Co de Phone Number [facility] [address] Department [place] [address] * High Risk HPV DNA Detection with Genotyping (Molecular component) (12/05/2024 12:00 PM CDT) [facility] HPV HR 16 Not Detected Not Detected HPV HR 18 Not Detected Not Detected [facility] HPV HR Non 16/18 Not Detected Not Detected [facility] Comment: Interpretive Data Nucleic acid amplification for [...] this test have been verified by the [facility] Laboratory. Correlate with separately reported cytology results, as applicable. Interpretive data last revised 23 Endocervical 12/05/2024 12:0 0 PM CDT 12/05/2024 4:49 PM CDT Narrative [facility] - 12/08/2024 6:06 PM CDT Clinical history and diagnosis->none Number of vials->1 Testing type->Screening Last menstrual period (date if known)->none Previous positive HPV history?->No Previous negative PAP?->Yes Angeline Sawyer MD LAB BODY FLUIDS AND STOOLS O RDERABLES Final Result [facility] [address] Department [place] [address] * Diagnostic Mammogram Bilateral W Jah (06/26/2024 10:33 AM CDT) Anatomical Region Laterality Modality Breast Bilateral Mammography 06/26/2024 3:38 PM CDT Addenda Addendum by Allie Atkins MD on 07/02/2024 9:41 AM COORDINATOR [employer]ODUCTS ADDENDUM: THE MAMMOGRAPHIC FINDINGS ARE DESCRIBED BELOW. [...] Allie Atkins M.D. LD: LILLIANA Report ID: [id number] [facility] Angeline Sawyer MD IMG MAMMO PROCEDURES Edited Result - Final * (ABNORMAL) COLONOSCOPY (04/14/2022) Scribed Colonoscopy Abnormal us Generic External Data Provider HEALTH MAINTENANC E Final Result * Hepatitis C antibody (08/03/2021 11:57 AM COORDINATOR MIN[employer]ODU[employer]) Hep C Ab Nonreactive Nonreactive [facility] [...] on 2019. Blood 08/03/2021 11:5 7 AM COORDINATOR [employer]ODUCTS 08/03/2021 4:34 PM COORDINATOR [employer] us Ana Carrillo DNP LAB MICROBIOLOGY - GENERAL O RDERABLES Final Result [facility] [address] Department [place] [address] from Last 3 Months or Most Recently Relevant to Health Maintenance Insurance [facility] CLAIMS [facility] CLAIM[facility] Care Teams Recreation Technician Relationship Specialty Start Date End Date Dary Soria MD [address] [place] [address] PCP - General Internal Medicine 04/19/23 Angeline Sawyer MD [address] [place] [address] Consulting Physician Obstetrics and Gynecology 05/09/22
[2025-03-04 21:24] VITALS: BP 106/52; PULSE 71; RESP 16; TEMP 36.3; O2SAT 98
--- NOTE | 2025-03-05 01:31 | ED_ITS ---
HPI - General Adult General Chief complaint: Recheck/Abnormal Lab/Rx Stated complaint: left foot pain / right leg wound Time Seen by Provider: 03/05/25 01:28 History of Present Illness HPI narrative: Patient is a 59-year-old female who presents the emergency department this evening for a wound check to her right bui. Patient had sclerotherapy done by her technical delivery manager sometime end of December/early January and was evaluated in the emergency department in January for an ulcer that formed around the area of the sclerotherapy. Patient was informed that time that the ulcers are likely due to a nicked artery and the ulcers are healing well. Recommended to follow-up with her technical delivery manager. Patient states that approximately 2 weeks ago she was doing some exercises and believes that she may have pulled something as she has been having some left ankle and foot pain. Patient does ambulate with a cane and has not had any issues with ambulating. To been taking some Tylenol and Aleve for her left ankle/foot pain with minimal to no relief. Related Data Home Medications ?Medication ?Instructions ?Recorded ?Confirmed ?Last Taken ?Type alendronate 70 mg tablet 70 mg PO WEEKLY 07/10/22 12/24/24 07/06/22 History estradiol 10 mcg vaginal tablet 10 mcg vaginal DAILY 07/10/22 12/24/24 Unknown History pantoprazole 40 mg tablet,delayed 40 mg PO DAILY 07/10/22 12/24/24 Unknown History release azelaic acid 15 % topical gel 1 applic topical BID 01/01/23 12/24/24 Unknown History cephalexin 500 mg capsule 500 mg PO Q12H 01/01/23 12/24/24 Unknown History Allergies Allergy/AdvReac Type Severity Reaction Status Date / Time levofloxacin (From Levaquin) Allergy Unknown Verified 03/04/25 21:29 nitrofurantoin (From Allergy Unknown Verified 03/04/25 21:29 Macrobid) Sulfa (Sulfonamide Allergy Rash Verified 03/04/25 21:29 Antibiotics) trimethoprim Allergy Unknown Verified 03/04/25 21:29 Review of Systems Review of Systems: All systems are reviewed and are negative unless stated otherwise in the HPI. [facility] Past Medical History Medical History Scoliosis Sleep apnea History of stress test Hay fever Acne rosacea Osteoporosis History of Helicobacter pylori infection Chronic urinary tract infection COVID-19 (03/2022) Gastroesophageal reflux disease Surgical History Surgical History History of oophorectomy (~10/17/75) History of foot surgery (~02/2010) History of 3 sections History of appendectomy Family History Family History Father Heart disease Sleep apnea Malignant neoplasm of prostate Skin cancer Mother Parkinsons disease Arthritis Other Diabetes mellitus Gout Other Family history non-contributory Social History Social History Social History: Code status: Full code. Smoking status: Never smoker Alcohol intake: current Alcohol use details: Social alcohol use in moderation. Substance use: never Do You Feel Safe in your Home?: Yes Lack of Transportation: No Lack of Food: Never True Current Housing: I Have Housing Concerned About Future Housing: No Difficulty Paying Gas/Electric Bills: No Difficulty Paying for Meds: No Currently Unemployed: No Education: Don't Know Difficulty w/ Childcare or Family Care: Decline to Answer Additional living arrangements comments: The patient lives with her and children in [place]. Spiritual care concerns: No Exam Narrative: General: Alert, awake, afebrile, in no acute distress. HEENT: PERRL, no rhinorrhea, no post nasal drip, oropharynx clear. Neck: Trachea midline, no JVD, no lymphadenopathy. Cardiovascular: Regular rate and rhythm, no murmurs, rubs or gallops, no peripheral edema. Respiratory: Clear to auscultation bilaterally, no tachypnea, no wheezing, no rhonchi, no rubs, no respiratory distress. Abdomen: Soft, nontender, nondistended, no rebound, no guarding, no peritoneal signs. Musculoskeletal: Left ankle swelling along the left lateral malleoli, patient has 2 small black eschars to her mid right bui which appears to be healing well, no evidence of cellulitis or abscess. Patient admits that the wound is getting smaller. Skin: No rashes or petechia, no signs of infection. Psychiatric: Alert and oriented, normal behavior and judgment for situation. Neurological: Alert and oriented to person, place, and time. Follows all commands. No focal deficits, speech is clear and fluent. Course Vital Signs Vital signs: Vital Signs Temperature 97.4 F L 03/04/25 21:24 Pulse Rate 71 03/04/25 21:24 Respiratory Rate 16 03/04/25 21:24 Blood Pressure 106/52 L 03/04/25 21:24 Pulse Oximetry 98 03/04/25 21:24 Oxygen Delivery Room Air 03/04/25 21:24 Temperature 97.4 F L 03/04/25 21:24 Pulse Rate 71 03/04/25 21:24 Respiratory Rate 16 03/04/25 21:24 Blood Pressure 106/52 L 03/04/25 21:24 Pulse Oximetry 98 03/04/25 21:24 Oxygen Delivery Room Air 03/04/25 21:24 Medical Decision Making MDM Narrative Medical decision making narrative: The patient was evaluated by myself in the emergency department. History is obtained from patient who is an independent historian and physical exam was performed. External medical records were reviewed at this time. Patient informed that her right bui wound is healing beautifully. Patient states that she has noticed that the wound is decreasing in size. She likely sprained her left ankle, recommends resting her left ankle joint, icing it, she was placed in an Karan bandage for compression and recommended to use ibuprofen and Tylenol as needed for pain. Patient also recommended to keep the ankle el evated to help with the swelling. Differential diagnosis considerations include ankle sprain, cellulitis, abscess, delayed wound healing. Comorbidities impacting this visit include none. I have evaluated and discussed social determinants of health with the patient that could potentially impact subsequent diagnosis and treatment plans. On repeat assessment of the patient, reevaluation revealed that the patient is doing well and is in no acute distress. Patient symptoms have improved since she arrived to our emergency department. Repeat vital signs were all reviewed and noted to be stable. Differential diagnosis and treatment plan were discussed with the patient at bedside. Patient agrees with discussion and after shared medical decision making agrees with discharge. All questions were answered to the patient's satisfaction. Patient will follow up with her technical delivery manager and her PCP in 3-5 days. Patient was provided with strict return precautions and instructed to return to the emergency department if any new or worsening symptoms develop. The patient was discharged in stable condition. Vital Signs Vital Signs: Vital Signs Temperature 97.4 F L 03/04/25 21:24 Pulse Rate 71 03/04/25 21:24 Respiratory Rate 16 03/04/25 21:24 Blood Pressure 106/52 L 03/04/25 21:24 Pulse Oximetry 98 03/04/25 21:24 Oxygen Delivery Room Air 03/04/25 21:24 Temperature 97.4 F L 03/04/25 21:24 Pulse Rate 71 03/04/25 21:24 Respiratory Rate 16 03/04/25 21:24 Blood Pressure 106/52 L 03/04/25 21:24 Pulse Oximetry 98 03/04/25 21:24 Oxygen Delivery Room Air 03/04/25 21:24 Discharge Plan Discharge Clinical Impression: Encounter for evaluation of wound, Left ankle sprain Patient Disposition: Home Condition: Improved Instructions: Antibiotic Form, Ankle Sprain (ED), Acute Wounds (ED) Additional Instructions: Please follow-up with your family doctor within the next 3-5 days. You also recommended to follow-up with your technical delivery manager regarding your chronic right bui wound. Return to the ED if any new or worsening symptoms develop. Patient Language: [place] Prescriptions: No Action fluticasone propionate [Flonase Allergy Relief] 50 mcg/actuation spray,suspension 2 spray NASAL DAILY Qty: 15.8 0RF Rx Instructions: administer into each nostril cephalexin 500 mg capsule 500 mg PO Q12H azelaic acid 15 % gel 1 applic topical BID alendronate 70 mg tablet 70 mg PO WEEKLY Rx Instructions: pt takes on . pantoprazole 40 mg tablet,delayed release (DR/EC) 40 mg PO DAILY estradiol 10 mcg tablet 10 mcg VAGINAL DAILY Follow-up/Referrals: Mateusz Jha Jr., DPM [Primary Care Provider] - 3 Days UNKNOWN,DOCTOR [Non-Staff] - Time of Disposition: 01:57
--- OUTSIDE RECORDS SUMMARY | 2025-03-05 01:37 | XMS_ITS | Clinical Summary ---
Author Organization [facility] Address [address] [place] [address] Care Team Providers Care Crane Operator Name Role Phone Dary Soria MD Primary Care Provider [phone] Source Comments [facility],non-owned Affiliates and Associated Physician Practices is amultiple site organization consisting of ambulatory clinics and hospital sitesin [place], [place], [place] and [place]. This disclosure is being madepursuant to the Care Everywhere program and may not contain all information available regarding this patient. Last updated 18.[facility] [employer] Learn Allergies Active Allergy Reactions Criticality Noted Date [...] fluticasone propionate (Flonase) 50 MCG/ACT nasal spray Ripley 1 (one) spray into the nose 2 times daily 3 Active loratadine-pseu doephedrine 12hr (Claritin-D 12 Hour) 5-120 MG tablet Take 1 mg by mouth Active Active Problems Problem Noted Date Diagnosed Date Dizziness and giddiness 11/26/2024 Chest pain 11/26/2024 Osteoarthritis 11/26/2024 Encounters Date Type Department Care Team Description 12/16/2024 Results Follow-Up [facility] Heart & Vascular [address] [place] [address] Chinedu Pal MA 12/04/2024 8:30 AM CDT Hospital Encounter [facility] Heart [facility] Vascular [address], [address] [place] [address] Cristian Palacios MD Discharge Disposition: Home or Self Care 12/04/2024 8:30 AM CDT Hospital Encounter [facility] & Vascular [address], [address] [place] [address] Cristian Palacios MD Discharge Disposition: Home or [...] 04/29/2025 11:30 AM CDT Office Visit [facility] V[facility] Care [address] [place], [place] [id number] Cristian Palacios MD [address] [place] [address] [address] [place] [address] Health Maintenance Due Date Last [...] Note Monika Garcia DO - 12/05/2024 [address] [place] [address] [facility]heart Nuclear Myocardial Perfusion Scan Report Pat.Name: SUYAPA OLGUIN Pat.ID: [id number] .Date: 12/04/2024 Refer.MD: Joaquina Soria Exam Time: 8:19:00 AM Study Type:Nuclear Myocardial Perfusion Scan Weight: 79.09kg Age: 8 1965,59Y Sex: FEMALE Sonogrphr: PIERO Shaffer Reason for Study: Chest pain, Abnormal EKG Procedures: Exercise Perfusion Scan, Gated Stress Visit ID: [id number] Risk Factors:Hypercholesterolemia Clinical Symptoms:Chest pain Medications:Fosamax, Estradiol, [...] Monika Garcia DO us Cristian Palacios MD [place] ORDERABLES Edited * STRESS TEST Treadmill (12/04/2024 [...] 8:30 AM Patient Status: O/P Study Site: [facility] Primary Location: [facility] EStudy Info Exam Type: STRESS [...] 8:30 AM Patient Status: O/P Study Site: [facility] Primary Location: [facility] EStudy Info Exam Type: STRESS [...] 137 bpm was achieved, 86%PMHR. Walked 7 [id number] seconds. * Normal blood pressure response. * [...] 137 bpm was achieved, 86%PMHR. Walked 7 [id number] seconds. The patient's peak stress blood pressure [...] R esult from Last 3 Months Insurance [facility] Care Teams Crane Operator Relationship Specialty Start Date End Date Dary Soria MD [address] [address] PCP - General Internal Medicine 11/25/24
--- OUTSIDE RECORDS SUMMARY | 2025-03-05 01:37 | XMS_ITS | Encounter Summary ---
Author Organization [facility] Address [address] [place] [address] Care Team Providers Care Training And Documentation Specialist Name Role Phone Angeline Sawyer MD Unavailable [phone] Dary Soria MD Primary Care Provider Reason for Visit * Reason Onset Date Comments Medical Question/Miscellaneous 02/04/2025 Encounter Details Date Type Department Care Team (Late st Contact Info) Description 02/04/2025 Telephone [facility] Primary Care at [facility] [address] [facility] [address] [facility] [address] Dary Soria MD [address] [facility] [address] [facility] [place] [address] Medical Question/Miscellaneous Social History Tobacco [...] on filedocumented in this encounter Care Teams Training And Documentation Specialist Relationship Specialty Start Date End Date Dary Soria MD [address] [place] [address] PCP - General Internal Medicine 04/19/23 Angeline Sawyer MD [address] [place] [address] Consulting Physician Obstetrics and Gynecology 05/09/22 documented as of this encounter
--- OUTSIDE RECORDS SUMMARY | 2025-03-05 01:37 | XMS_ITS | Referral Summary ---
Author Organization [facility] Address [address] [place] [address] Phone Care Team Providers Care Remote Sensing Scientist Name Role Phone Angeline Sawyer MD Unavailable [phone] Dary Soria MD Primary Care Provider Encounters Date Type Department Care Team Description 02/04/2025 Telephone [facility] Primary Care at [facility] [address] [place] [address] Dary Soria MD Medical Question/Miscellaneou s 01/01/2025 Telephone [facility] Medical [facility] Primary Care at [facility] [address] [place] [address] Dary Soria MD Medical Records Request 12/26/2024 Results Follow-Up [facility] Primary Care at [facility] [address] [place] [address] Dary Soria MD Hepatic function panel 12/25/2024 3:12 PM CDT - 12/25/2024 11:59 PM CDT Hospital Encounter [facility] [address] [place] [address] Discharge Disposition: Discharge to home or self care 12/25/2024 2:45 PM CDT Lab [facility] Medical [facility] Primary Care at [facility] [address] [place] [address] 12/25/2024 2:00 PM CDT Office Visit [facility] Primary Care at [facility] [address] [place] [address] Dary Soria MD Elevated liver enzymes (Primary Dx); Onychomycosis; 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, [address] [place] [address] Manolo Garcia, OD Hordeolum internum of right upper eyelid (Primary Dx) 12/18/2024 Telephone [facility] Ophthalmology [address], [address] [place] [address] Manolo Garcia, OD 12/18/2024 11:00 AM CDT Procedure visit [facility] Otolaryngology [address], [address] [place] [address] Conductive hearing loss of left ear with unrestricted hearing of right ear (Primary Dx) 12/18/2024 11:40 AM CDT Office Visit [facility] Otolaryngology 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 Dizziness and giddiness 12/08/2024 Results Follow-Up [facility] [address] [place] [address] Angeline Sawyer MD High Risk HPV DNA Detection with Genotyping (Molecular component), ThinPrep processing (Molecular component), Pap and High Risk HPV and Genotyping (Cytology Component) 12/05/2024 3:44 PM CDT - 12/05/2024 11:59 PM CDT Hospital Encounter [facility] [address] [place] [address] Screening for malignant neoplasm of the cervix; Screening for HPV (human papillomavirus) Discharge Disposition: Discharge to home or self care 12/05/2024 10:30 AM CDT Office Visit [facility] Group [facility] [address] [facility] [address], [place] [address] Angeline Sawyer MD Encounter for well woman exam with routine gynecological exam (Primary Dx); Screening for malignant neoplasm of the cervix; Screening for HPV (human papillomavirus); Postmenopausal atrophic vaginitis; Age-related osteoporosis without current pathological fracture 12/04/2024 Telephone [facility] ([facility] - [facility] ENT [address] [place] [address] [place] [address] Erin Rondon MS from Last 3 Months Allergies Active Allergy [...] CDT): Improving but not resolved, now with chalazheidi Educated and reassured patient of findings Continue [...] 05/2024 - Pap: UTD 10/2021, repeat per Multiple Spindle Router Operator Immunizations - Influenza: Recommend annually - Td/Tdap: UTD 07/2021, repeat 07/2031 - PCV20: Discuss at 64 - Shingles: UTD x 2 2020 - COVID: Recommended Assessment & Plan (10/23/2023 12:43 PM FLIGHT ENGINEER MANAGER): General - HbA1c: 5.4% 03/2023, repeat annually - Lipid panel: LDL 127 03/2023, repeat annually - ASCVD score: 2.2% low risk - DEXA scan: UTD 04/2022, repeat 04/2024 Cancer - Colonoscopy: UTD 03/2022, repeat 03/2027 - Mammogram: UTD 05/2023, repeat 05/2024 - Pap: UTD 10/2021, repeat per Multiple Spindle Router Operator Immunizations - Influenza: Recommended - Td/Tdap: UTD 07/2021, repeat 07/2031 - PCV20: Discuss at 64 - Shingles: UTD x 2 2020 - COVID: Recommended Primary osteoarthritis involving multiple joints 10/23/2023 Assessment & Plan (04/21/2024 3:17 PM CDT): Considering R knee replacement. Assessment & Plan (10/23/2023 12:43 PM FLIGHT ENGINEER MANAGER): Chronic, does use NSAIDs occasionally. Discussed risks, benefits, and alternatives. Prediabetes 08/04/2022 Assessment & Plan (04/21/2024 3:16 PM CDT): A1c normal on last check. Anxiety 08/04/2022 Assessment & Plan (04/21/2024 3:16 PM CDT): Increasing anxiety lately about memory and health. Reassurance provided today. Consider SSRI in future. Assessment & Plan (08/04/2022 6:18 PM FLIGHT ENGINEER MANAGER): Large amount of life stressors Overwhelmed Discussed [...] regimen Assessment & Plan (10/23/2023 12:41 PM FLIGHT ENGINEER MANAGER): Continues on Fosamax 70 mg daily. - Continue current regimen Assessment & Plan (08/04/2022 6:22 PM FLIGHT ENGINEER MANAGER): Noted on Dexa 2022 Fosamax Age-related nuclear cataract of both eyes [...] sensation. Assessment & Plan (10/23/2023 12:41 PM FLIGHT ENGINEER MANAGER): Follows with ENT and GI, has been [...] 40mg twice baeza before breakfast and supper chcf Avoid eating 4 hours before lying down. [...] BID Assessment & Plan (10/23/2023 12:41 PM FLIGHT ENGINEER MANAGER): See above, follows with Dr. Shrestha. - Continue pantoprazole 40 mg BID Assessment & Plan (08/04/2022 6:23 PM FLIGHT ENGINEER MANAGER): F/b GI Zohaib Chery. , reviewed note [...] 40mg twice baeza before breakfast and supper chcf Avoid eating 4 hours before lying down. [...] cancer. Assessment & Plan (10/03/2021 11:04 AM FLIGHT ENGINEER MANAGER): Followed by her PCP. Chronic and stable. She will continue taking her Pepcid for acid reflux control. Assessment & Plan (09/05/2021 9:54 AM FLIGHT ENGINEER MANAGER): Followed by her PCP and controlled on her Pepcid. Recommend that she continue her Pepcid. Scoliosis of thoracic spine 06/30/2021 Overview (08/04/2022): F/b Dr. Ramey Wanting to start PT for her back Assessment & Plan (04/21/2024 3:17 PM CDT): Kelley. Assessment & Plan (08/04/2022 6:20 PM FLIGHT ENGINEER MANAGER): F/b Dr. Ramey Wanting to start PT for her back Environmental allergies 06/30/2021 Assessment & Plan (04/21/2024 3:16 PM CDT): Kelley. Resolved Problems Problem Noted Date Diagnosed Date Resolved Date Folliculitis 10/23/2023 04/21/2024 Assessment & Plan (10/23/2023 12:42 PM FLIGHT ENGINEER MANAGER): Area of purple-red discoloration at site of [...] started. Assessment & Plan (08/04/2022 6:24 PM FLIGHT ENGINEER MANAGER): H. pylori infection which was treated in 2019 with amoxicillin, clarithromycin, PPI. However, subsequent breath test was positive. There were plans for Pylera, but the patient never completed the therapy as the Covid pandemic started. Health care maintenance 04/18/202209/28 Overview (08/04/2022): Images from the original note were not included. C scope 03/2022 completed at [facility], repeat due in 5 years 05/09/22 [...] placed) Assessment & Plan (08/04/2022 6:28 PM FLIGHT ENGINEER MANAGER): C scope 03/2022 completed at [facility], repeat due in 5 years 06/12/2022 [...] and peripheral heme without retinal breaks , buckle assembler 360 . Follow up 3-4 weeks Warning [...] (08/03/2021): Added automatically from request for surgery [id number] Arthritis 06/30/2021 10/23/2023 Assessment & Plan (10/03/2021 11:04 AM FLIGHT ENGINEER MANAGER): Followed by her PCP. Chronic and stable. She is controlled with her Tylenol and Voltaren gel and recommended that she continue this as needed. Assessment & Plan (09/05/2021 9:55 AM FLIGHT ENGINEER MANAGER): Followed by her PCP and controlled with Tylenol and Voltaren gel. Recommend that she continue the Tylenol and Voltaren gel for symptomatic relief of arthritis. Chronic UTI 06/30/2021 04/23/2023 Varicose veins of left lower extremity with pain 06/30/2021 10/23/2023 Assessment & Plan (10/03/2021 11:03 AM FLIGHT ENGINEER MANAGER): Patient does not have any varicose veins [...] needed. Assessment & Plan (09/05/2021 9:56 AM FLIGHT ENGINEER MANAGER): Patient has spider veins on her bilateral [...] HEPATITIS C ANTIBODY Routine 08/03/2021 11:57 AM FLIGHT ENGINEER MANAGER Need for hepatitis C screening test from Last 3 Months or Most Recently Relevant to Health Maintenance Results * Hepatic function panel (12/25/2024 2:45 PM CDT) Bilirubin, total 0.7 0.1 - 1.2 mg/dL Bilirubin, direct 0.2 0.1 - 0.3 mg/dL [facility] Protein, pl 7.4 6.5 - 8.5 g/dL [facility] Albumin 4.4 3.5 - 5.0 g/dL [facility] Alk phos 66 40 - 130 Units/L [facility] ALT 41 7 - 45 Units/L [facility] AST 25 10 - 45 Units/L [facility] Blood 12/25/2024 2:45 PM CDT 12/25/2024 6:55 PM CDT Dary Soria MD LAB BLOOD ORDERABLES F inal Result [facility] [address] [place] [address] * [facility] Results (12/18/2024 10:59 AM CDT) Provider Scanning AUDIOLOGY SERVICES ORDERABLES Final Result * Pap and High Risk HPV and Genotyping (Cytology Component) (12/05/2024 1:58 PM CDT) Thin prep (Pap test) 12/05/2024 1:58 PM CDT 12/08/2024 8:30 AM CDT Narrative [facility] - 12/10/2024 8:44 AM CDT EPIC results best viewed via link to PDF [place] [id number] [place], [place] [address] Tele: Merlyn Morales MD - [facility] CYTOLOGY REPORT Note to Patients: This report [...] the details. Patient Name: SUYAPA AUGUSTIN Address: [address] [place] [address] Gender: F : 1965 (Age: 59) Service: Location: N : [id number] Hospital #: [id number] Patient Type: [facility] SPECIMEN Taken: 12/05/2024 Reported: 12/10/2024 Physician(s): Angeline Sawyer MD FINAL DIAGNOSIS: SOURCE OF SPECIMEN - ThinPrep Pap and HPV w/ reflex Genotyping: STATEMENT OF ADEQUACY Source: Cervical/Endocervical - Satisfactory for interpretation - Endocervical /Transformation Zone component present - Case screened using computer assisted imaging technology GENERAL CATEGORIZATION: - Negative for intraepithelial lesion or malignancy cad/12/10/2024 08:Sarah Sage (ASCP) Mary Plascencia M.S., CT (ASCP)Report Reviewed [...] part or completely in the following laboratories: [facility], [facility] [facility] [address], [place] [address] [facility], [address] [place] [address]. Angeline Sawyer MD LAB CYTOLOGY ORDERABLES Rhonda l Result PATHOLOGY [facility] Laboratory Receiving [address] [place], [place] [address] * ThinPrep processing (Molecular component) (12/05/2024 12:00 PM CDT) [facility] ThinPrep processing (Molecular component) Specimen received for processing. Endocervical 12/05/2024 12:0 0 PM CDT 12/05/2024 4:49 PM CDT Angeline Sawyer MD LAB BODY FLUIDS AND STOOLS O RDERABLES Final Result Performing Organization Address City/[facility]/ZIP Co de Phone Number [facility] [address] [place] [address] * High Risk HPV DNA Detection with Genotyping (Molecular component) (12/05/2024 12:00 PM CDT) [facility] HPV HR 16 Not Detected Not Detected HPV HR 18 Not Detected Not Detected [facility] HPV HR Non 16/18 Not Detected Not Detected [facility] Comment: Interpretive Data [...] this test have been verified by the [facility] Laboratory. Correlate with separately reported cytology results, as applicable. Interpretive data last revised 23 Endocervical 12/05/2024 12:0 0 PM CDT 12/05/2024 4:49 PM CDT Narrative [facility] - 12/08/2024 6:06 PM CDT Clinical history and diagnosis->none Number of vials->1 Testing type->Screening Last menstrual period (date if known)->none Previous positive HPV history?->No Previous negative PAP?->Yes Angeline Sawyer MD LAB BODY FLUIDS AND STOOLS O RDERABLES Final Result [facility] [address] [place] [address] * Diagnostic Mammogram Bilateral W Jah (06/26/2024 10:33 AM CDT) Anatomical Region Laterality Modality Breast Bilateral Mammography 06/26/2024 3:38 PM CDT Addenda Addendum by Allie Atkins MD on 07/02/2024 9:41 AM FLIGHT ENGINEER MANAGER ADDENDUM: THE MAMMOGRAPHIC FINDINGS ARE DESCRIBED BELOW. [...] Electronically signed by Allie Atkins M.D. LD: LD Report ID: [id number] Reading Location: [facility] Angeline Sawyer MD IMG MAMMO PROCEDURES Edited Result - Final * (ABNORMAL) COLONOSCOPY (04/14/2022) Scribed Colonoscopy Abnormal Generic External Data Provider HEALTH MAINTENANC E Final Result * Hepatitis C antibody (08/03/2021 11:57 AM FLIGHT ENGINEER MANAGER) Hep C Ab Nonreactive Nonreactive [facility] Comment: Interpretive Data Nonreactive: Antibodies to [...] on 2019. Blood 08/03/2021 11:5 7 AM FLIGHT ENGINEER MANAGER 08/03/2021 4:34 PM FLIGHT ENGINEER MANAGER Ana Carrillo DNP LAB MICROBIOLOGY - GENERAL O RDERABLES Final Result [facility] [address] Department [place] [address] from Last 3 Months or Most Recently Relevant to Health Maintenance Insurance CLAIMS [facility] CLAIMS Care Teams Remote Sensing Scientist Relationship Specialty Start Date End Date Dary Soria MD [address] [place] [address] PCP - General Internal Medicine 04/19/23 Angeline Sawyer MD [address] [place] [address] Consulting Physician Obstetrics and Gynecology 05/09/22
--- OUTSIDE RECORDS SUMMARY | 2025-03-05 01:37 | XMS_ITS | Patient Health Record ---
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) Active confirmed Problem Acquired spondylolisthesis (452539301) Spondylolisthesis , cervical region (M43.12) Active confirmed Problem Cervical spondylosis without myelopathy (469187112) Spondylosis without myelopathy or radiculopathy, cervical region (M47.812) Active confirmed Problem Seasonal allergy (776252775) Seasonal allergies (J30.2) Active confirmed Problem Obstructive sleep apnea syndrome (43857298) KP (obstructive sleep apnea) (G47.33) Active confirmed Problem Rosacea (350708678) Rosacea (L71.9) Active conf irmed Problem Vitamin D deficiency (00530440) Vitamin D deficiency (E55.9) Active confirmed Problem Osteoarthritis (391057383) OA (osteoarthritis) (M19.90) Active confirmed Problem Varicose vein (87363438) Varicose vein (I86.8) Active confirmed Problem Vitamin B12 deficiency (776190648) Vitamin B12 deficiency (E53.8) Active confirmed Problem Urinary tract infectious disease (79096863) Chronic UTI (N39.0) Active confirmed Problem Postmenopausal state (05149966) Post menopausal syndrome (Z78.0) Active confirmed Problem Cervical spondylosis without myelopathy (591918038) 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) Active confirmed Problem Hypersomnia (12266024) Hypersomnolence (G47.10) Active confirmed Problem Cervical facet joint syndrome (M46.92) Active confirmed Problem Arthritis (5980317) Other specif ied arthritis, other site (M13.88) Active confirmed MIG2- Problem Chronic cystitis (82341907) Other chronic cystitis without hematuria (N30.20) Active confirmed MIG2- Problem Postmenopausal atrophic vaginitis (92993336) Postmenopausal atrophic vaginitis (N95.2) 017 Active confirmed MIG2- Problem Urinary tract infectious disease (42500551) Chronic urinary tract infection, suppressed (N39.0) 017 [...] Insured Coverage Start Date Coverage End Date [facility] Rewarding Return) [address] [place] [address] [id number] Suyapa Black Self - patient is the [...]
--- OUTSIDE RECORDS SUMMARY | 2025-03-05 01:37 | XMS_ITS | Clinical Summary ---
Author Organization [facility] Address [address] [place] [address] Phone Care Team Providers Care Grapple Skidder Operator Name Role Phone Angeline Sawyer MD Unavailable [phone] Dary Soria MD Primary Care Provider Allergies [...] 05/2024 - Pap: UTD 10/2021, repeat per Senior Information Security Analyst Immunizations - Influenza: Recommend annually - Td/Tdap: UTD 07/2021, repeat 07/2031 - PCV20: Discuss at 64 - Shingles: UTD x 2 2020 - COVID: Recommended Assessment & Plan (10/23/2023 12:43 PM PATCH SETTER): General - HbA1c: 5.4% 03/2023, repeat annually - Lipid panel: LDL 127 03/2023, repeat annually - ASCVD score: 2.2% low risk - DEXA scan: UTD 04/2022, repeat 04/2024 Cancer - Colonoscopy: UTD 03/2022, repeat 03/2027 - Mammogram: UTD 05/2023, repeat 05/2024 - Pap: UTD 10/2021, repeat per Senior Information Security Analyst Immunizations - Influenza: Recommended - Td/Tdap: UTD 07/2021, repeat 07/2031 - PCV20: Discuss at 64 - Shingles: UTD x 2 2020 - COVID: Recommended Primary osteoarthritis involving multiple joints 10/23/2023 Assessment & Plan (04/21/2024 3:17 PM CDT): Considering R knee replacement. Assessment & Plan (10/23/2023 12:43 PM PATCH SETTER): Chronic, does use NSAIDs occasionally. Discussed risks, benefits, and alternatives. Prediabetes 08/04/2022 Assessment & Plan (04/21/2024 3:16 PM CDT): A1c normal on last check. Anxiety 08/04/2022 Assessment & Plan (04/21/2024 3:16 PM CDT): Increasing anxiety lately about memory and health. Reassurance provided today. Consider SSRI in future. Assessment & Plan (08/04/2022 6:18 PM PATCH SETTER): Large amount of life stressors Overwhelmed Discussed [...] regimen Assessment & Plan (10/23/2023 12:41 PM PATCH SETTER): Continues on Fosamax 70 mg daily. - Continue current regimen Assessment & Plan (08/04/2022 6:22 PM PATCH SETTER): Noted on Dexa 2021 Fosamax Age-related nuclear [...] sensation. Assessment & Plan (10/23/2023 12:41 PM PATCH SETTER): Follows with ENT and GI, has been [...] 40mg twice baeza before breakfast and supper prison Avoid eating 4 hours before lying down. [...] BID Assessment & Plan (10/23/2023 12:41 PM PATCH SETTER): See above, follows with Dr. Shrestha. - Continue pantoprazole 40 mg BID Assessment & Plan (08/04/2022 6:23 PM PATCH SETTER): F/b GI Zohaib Chery. , reviewed note [...] 40mg twice baeza before breakfast and supper director writing Avoid eating 4 hours before lying down. [...] cancer. Assessment & Plan (10/03/2021 11:04 AM PATCH SETTER): Followed by her PCP. Chronic and stable. She will continue taking her Pepcid for acid reflux control. Assessment & Plan (09/05/2021 9:54 AM PATCH SETTER): Followed by her PCP and controlled on her Pepcid. Recommend that she continue her Pepcid. Scoliosis of thoracic spine 06/30/2021 Overview (08/04/2022): F/b Dr. Ramey Wanting to start PT for her back Assessment & Plan (04/21/2024 3:17 PM CDT): Kelley. Assessment & Plan (08/04/2022 6:20 PM PATCH SETTER): F/b Dr. Ramey Wanting to start PT for her back Environmental allergies 06/30/2021 Assessment & Plan (04/21/2024 3:16 PM CDT): Kelley. Resolved Problems Problem Noted Date Diagnosed Date Resolved Date Folliculitis 10/23/2023 04/21/2024 Assessment & Plan (10/23/2023 12:42 PM PATCH SETTER): Area of purple-red discoloration at site of [...] started. Assessment & Plan (08/04/2022 6:24 PM PATCH SETTER): H. pylori infection which was treated in 2019 with amoxicillin, clarithromycin, PPI. However, subsequent breath test was positive. There were plans for Pylera, but the patient never completed the therapy as the Covid pandemic started. Health care maintenance 04/18/2022 0202/2024 Overview (08/04/2022): Images from the original note were not included. C scope 03/2022 completed at [facility], repeat due in 5 years 05/09/22 [...] placed) Assessment & Plan (08/04/2022 6:28 PM PATCH SETTER): C scope 03/2022 completed at [facility], repeat due in 5 years 06/12/2022 [...] and peripheral heme without retinal breaks , [employer] . Follow up 3-4 weeks Warning [...] (08/03/2021): Added automatically from request for surgery [id number] Arthritis 06/30/2021 10/23/2023 Assessment & Plan (10/03/2021 11:04 AM PATCH SETTER): Followed by her PCP. Chronic and stable. She is controlled with her Tylenol and Voltaren gel and recommended that she continue this as needed. Assessment & Plan (09/05/2021 9:55 AM PATCH SETTER): Followed by her PCP and controlled with Tylenol and Voltaren gel. Recommend that she continue the Tylenol and Voltaren gel for symptomatic relief of arthritis. Chronic UTI 06/30/2021 04/23/2023 Varicose veins of left lower extremity with pain 06/30/2021 10/23/2023 Assessment & Plan (10/03/2021 11:03 AM PATCH SETTER): Patient does not have any varicose veins [...] needed. Assessment & Plan (09/05/2021 9:56 AM PATCH SETTER): Patient has spider veins on her bilateral [...] Type Department Care Team Description 02/04/2025 Telephone [facility] Primary Care at [address] [address] Dary Soria MD Medical Question/Miscellaneou s 01/01/2025 Telephone [facility] Primary Care at [address] [address] Dary Soria MD Medical Records Request 12/26/2024 Results Follow-Up [facility] Primary Care at [address] [place] [address] Dary Soria MD Hepatic function panel 12/25/2024 3:12 PM CDT - 12/25/2024 11:59 PM CDT Hospital Encounter [address] [address] Discharge Disposition: Discharge to home or self care 12/25/2024 2:45 PM CDT Lab [facility] Primary Care at [place] [address] [facility] [address] [place] [phone] 12/25/2024 2:00 PM CDT Office Visit [facility] Medical [facility] Primary Care at 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, [address] [place] [address] Manolo Garcia, MIRANDA Hordeolum internum of right upper eyelid (Primary Dx) 12/18/2024 11:40 AM CDT Office Visit [facility] Otolaryngology 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, [address] [place] [address] Conductive hearing loss of left ear with unrestricted hearing of right ear (Primary Dx) 12/18/2024 Telephone [facility] Ophthalmology [address], [address] [place] [address] Manolo Garcia, OD 12/16/2024 1:00 PM CDT Procedure visit [facility] Otolaryngology [address]th [place] [address] [place] [address] Colleen Patel Au.D. Dizziness and giddiness 12/08/2024 Results Follow-Up [facility] Medical [facility] [address] [facility] [facility] [address] [place] [address] Angeline Sawyer MD High Risk HPV DNA Detection with Genotyping (Molecular component), ThinPrep processing (Molecular component), Pap and High Risk HPV and Genotyping (Cytology Component) 12/05/2024 3:44 PM CDT - 12/05/2024 11:59 PM CDT Hospital Encounter [facility] [address] [place] [phone] Screening for malignant neoplasm of the cervix; Screening for HPV (human papillomavirus) Discharge Disposition: Discharge to home or self care 12/05/2024 10:30 AM CDT Office Visit [facility] [address] [facility] [address], [place] [address] Angeline Sawyer MD Encounter for well woman exam with routine gynecological exam (Primary Dx); Screening for malignant neoplasm of the cervix; Screening for HPV (human papillomavirus); Postmenopausal atrophic vaginitis; Age-related osteoporosis without current pathological fracture 12/04/2024 Telephone [facility] Medicine ([facility] ENT [address] [place] [address] [place] [address] Erin Rondon MS from Last 3 Months Immunizations Immunization Administration [...] Maternal Grandmother Mother Sofia Holden Son Siva patel'Altavillbrian Social History Tobacco Use Types Packs/Day Years [...] HEPATITIS C ANTIBODY Routine 08/03/2021 11:57 AM PATCH SETTER Need for hepatitis C screening test from Last 3 Months or Most Recently Relevant to Health Maintenance Results * Hepatic function panel (12/25/2024 2:45 PM CDT) Bilirubin, total 0.7 0.1 - 1.2 mg/dL Bilirubin, direct 0.2 0.1 - 0.3 mg/dL [facility] Protein, pl 7.4 6.5 - 8.5 g/dL [facility] Albumin 4.4 3.5 - 5.0 g/dL [facility] Alk phos 66 40 - 130 Units/L [facility] ALT 41 7 - 45 Units/L [facility] AST 25 10 - 45 Units/L [facility] Blood 12/25/2024 2:45 PM CDT 12/25/2024 6:55 PM CDT Dary Soria MD LAB BLOOD ORDERABLES F inal Result [facility] [address] Department [place] [address] * [employer] Results (12/18/2024 10:59 AM CDT) Provider Scanning AUDIOLOGY SERVICES ORDERABLES Final Result * Pap and High Risk HPV and Genotyping (Cytology Component) (12/05/2024 1:58 PM CDT) Thin prep (Pap test) 12/05/2024 1:58 PM CDT 12/08/2024 8:30 AM CDT Narrative PATHOLOGY [facility] - 12/10/2024 8:44 AM CDT EPIC results best viewed via link to PDF [address] [address] Tele: Merlyn Morales MD - [employer] CYTOLOGY REPORT Note to Patients: This report [...] the details. Patient Name: SUYAPA AUGUSTIN Address: [address] [place] [address] Gender: F : 1965 (Age: 59) Service: Location: [facility] #: [id number] Patient Type: [facility] SPECIMEN Taken: 12/05/2024 Reported: 12/10/2024 Physician(s): Angeline [...] part or completely in the following laboratories: [facility], [address] [place] [address], [address] [facility], [place] [address]. Angeline Sawyer MD LAB CYTOLOGY ORDERABLES Rhonda milner Result PATHOLOGY [facility] Laboratory Receiving [address] [place] [address] * ThinPrep processing (Molecular component) (12/05/2024 12:00 PM CDT) [facility] ThinPrep processing (Molecular component) Specimen received for processing. Endocervical 12/05/2024 12:0 0 PM CDT 12/05/2024 4:49 PM CDT Angeline Sawyer MD LAB BODY FLUIDS AND STOOLS O RDERABLES Final Result [facility] [address] Department [place] [address] * High Risk HPV DNA Detection with Genotyping (Molecular component) (12/05/2024 12:00 PM CDT) [facility] HPV HR 16 Not Detected Not Detected HPV HR 18 Not Detected Not Detected [facility] HPV HR Non 16/18 Not Detected Not Detected [facility] Comment: Interpretive Data Nucleic acid amplification for [...] this test have been verified by the [facility] Laboratory. Correlate with separately reported cytology results, as applicable. Interpretive data last revised 23 Endocervical 12/05/2024 12:0 0 PM CDT 12/05/2024 4:49 PM CDT Narrative [facility] - 12/08/2024 6:06 PM CDT Clinical history and diagnosis->none Number of vials->1 Testing type->Screening Last menstrual period (date if known)->none Previous positive HPV history?->No Previous negative PAP?->Yes Angeline Sawyer MD LAB BODY FLUIDS AND STOOLS O RDERABLES Final Result [facility] [address] [place] Department [place] [address] * Diagnostic Mammogram Bilateral W Jah (06/26/2024 10:33 AM CDT) Anatomical Region Laterality Modality Breast Bilateral Mammography 06/26/2024 3:38 PM CDT Addenda Addendum by Allie Atkins MD on 07/02/2024 9:41 AM PATCH SETTER ADDENDUM: THE MAMMOGRAPHIC FINDINGS ARE DESCRIBED BELOW. [...] Allie Atkins M.D. LD: LILLIANA Report ID: [id number] Reading Location: MAMME us Angeline Sawyer MD IMG MAMMO PROCEDURES Edited Result - Final * (ABNORMAL) COLONOSCOPY (04/14/2022) Scribed Colonoscopy Abnormal us Generic External Data Provider HEALTH MAINTENANC E Final Result * Hepatitis C antibody (08/03/2021 11:57 AM PATCH SETTER) Hep C Ab Nonreactive Nonreactive [facility] Comment: Interpretive Data Nonreactive: Antibodies to [...] on 2019. Blood 08/03/2021 11:5 7 AM PATCH SETTER 08/03/2021 4:34 PM PATCH SETTER us Ana Carrillo DNP LAB MICROBIOLOGY - GENERAL O RDERABLES Final Result [facility] [address] Department [place] [address] from Last 3 Months or Most Recently Relevant to Health Maintenance Insurance [facility] CLAIMS FORMERLY [facility] CLAIMS Care Teams Grapple Skidder Operator Relationship Specialty Start Date End Date Dary Soria MD [address] [facility] [address] [place] [address] PCP - General Internal Medicine 04/19/23 Angeline Sawyer MD [address] [facility] [address] [place] [address] Consulting Physician Obstetrics and Gynecology 05/09/22
--- OUTSIDE RECORDS SUMMARY | 2025-03-05 01:37 | XMS_ITS | Clinical Summary ---
Author Organization [facility] Address [address] [place] [address] Phone Care Team Providers Care Transfer Specialist Name Role Phone Rosa Loredo MD Primary [...] 08/03/2021 Active fluticasone propionate (FLONASE) 50 mcg/spray [place], Suspension nasal inhaler 09/08/2021 Active cephALEXin (KEFLEX) [...] Visit [facility] [address] [place] [address] Zohaib Shrestha MD [address] [place] [address] Health Maintenance Due Date Last [...] Addenda: [address] ; [place] [address] Zohaib Shrestha MD GI PROCEDURE ORDERABLES Final Result from Last 3 Months or Most Recently Relevant to Health Maintenance [place] [address] [address] [place] [address] Advance Directives For more information, please contact: [phone] * Full Code (Latest Code Status on File) Date Activated Date Inactivated Comments 04/14/2022 10:19 AM 04/14/2022 2:30 PM Care Teams Transfer Specialist Relationship Specialty Start Date End Date Rosa Loredo MD PCP - General Internal Medicine 10/07/21
== END 2025-03-05 02:10 | disposition home or self-care (01) ==
PROVIDERS: Emergency Provider Emergency Medicine; PCP Podiatrist Foot & Ankle Surgery
DX: S93.402A Sprain of unspecified ligament of left ankle, initial encounter (principal); S80.921A Unspecified superficial injury of right lower leg, initial encounter; M41.9 Scoliosis, unspecified; G47.30 Sleep apnea, unspecified; Z87.440 Personal history of urinary (tract) infections; K21.9 Gastro-esophageal reflux disease without esophagitis; X50.0XXA Overexertion from strenuous movement or load, initial encounter
CPT/HCPCS: 99282

== ENCOUNTER 2025-03-12 07:32 | Outpatient (CLI) | payer OTHER, SELFPAY ==
--- NOTE | ~2025-03-12 | MR_ITS ---
MRI of the left ankle Clinical history: Lateral pain Technique: Coronal proton-density and proton-density fat-sat images, axial proton-density and proton- density fat-sat images, and sagittal proton-density and proton-density fat-sat images were acquired. Findings: Syndesmotic ligaments are intact. Anterior and posterior talofibular ligaments, and calcane ofibular ligament appear intact. Deltoid ligament intact. Medial flexor tendons, peroneal tendons, anterior extensor tendons, and Achilles tendon are intact. There is no osteochondral lesion of the aorta. There is partially is marrow edema involving the base and proximal shaft of the second metatarsal. Questionable nondisplaced fracture through the base the second metatarsal, nondisplaced.. Plantar fascia intact. No soft tissue mass or fluid collection evident. Impression: Marrow edema at the proximal shaft and base of the second metatarsal questionable nondisplaced fractu re deformity. Correlate clinically. Consider dedicated imaging of the forefoot. No displacement along the Lisfranc articulation, and the Lisfranc ligament itself appears intact. Reviewed, dictated and finalized at [facility]. Impression: Marrow edema at the proximal shaft and base of the second metatarsal questionab le nondisplaced fracture deformity. Correlate clinically. Consider dedicated im aging of the forefoot. No displacement along the Lisfranc articulation, and the Lisfranc ligament itself appears intact.
== END 2025-03-12 07:33 | disposition home or self-care (01) ==
LOC: MICIMG 07:33
PROVIDERS: PCP Podiatrist Foot & Ankle Surgery; Visit Provider Podiatrist Foot & Ankle Surgery
DX: M25.472 Effusion, left ankle (principal); M76.72 Peroneal tendinitis, left leg
CPT/HCPCS: 73721

== ENCOUNTER 2025-08-03 10:26 | Outpatient (CLI) | payer OTHER, SELFPAY ==
[2025-08-03 11:30] LABS: Alanine Aminotransferase 51 U/L (6-35); Aspartate Amino Transferase 66 U/L (14-36)
== END 2025-08-03 10:27 | disposition home or self-care (01) ==
PROVIDERS: Visit Provider Podiatrist Foot & Ankle Surgery
DX: B35.1 Tinea unguium (principal)
CPT/HCPCS: 36415; 84450; 84460